=== PATIENT | female | born 1965 | race Caucasian/White ===

== ENCOUNTER 2017-07-17 03:37 | Emergency (ER) | payer BC, OTHER ==
--- NOTE | 2017-07-17 08:10 | RAD ---
PA AND LATERAL CHEST: Date: 07/17/17 HISTORY: Cough, generalized weakness, fever. Symptoms have been present for 1 week. COMPARISON: 12/17/13. FINDINGS: The cardiac silhouette and pulmonary vasculature are within normal limits. There is minimal symmetric biapical pleural thickening noted. Lungs are otherwise clear. Surgical clips overlie the right upper quadrant. There has been no interval change from prior study. IMPRESSION: No acute cardiopulmonary process. POS: [facility]
== END 2017-07-17 05:01 | disposition home or self-care (01) ==
LOC: ERS 03:37
DX: J40 Bronchitis, not specified as acute or chronic (principal); J44.9 Chronic obstructive pulmonary disease, unspecified; F41.9 Anxiety disorder, unspecified; F32.9 Major depressive disorder, single episode, unspecified; Z87.891 Personal history of nicotine dependence; Z79.52 Long term (current) use of systemic steroids; Z79.899 Other long term (current) drug therapy
CPT/HCPCS: 71046; 94640; J7620

== ENCOUNTER 2018-05-30 05:28 | Observation (INO) | payer OTHER ==
[2018-05-30 05:49] LABS: #Basophils 0.1 thou/uL (0.0-0.2); #Eosinphils 0.1 thou/uL (0.0-0.7); #Lymphocytes 3.2 thou/uL (1.20-3.40); %Basophils 0.9 % (0.0-1.0); %Eosinophils 0.6 % (0.0-10.0); %Lymphocytes 25.9 % (21.0-51.0); %Neutrophils 64.6 % (42.0-75.0); Hemoglobin 12.5 g/dL (12.0-16.0); Mean Corpuscular HGB CONC 34.5 g/dL (32.0-36.0); Mean Corpuscular Hemoglobin 30.3 pg (27.0-31.0); Platelet Count 340 thou/uL (130-400); Red Blood Cell (RBC) Count 4.11 mill/uL (4.20-5.40); White Blood Cell (WBC) Count 12.3 thou/uL (4.8-10.8)
[2018-05-30 06:16] LABS: ALT (SGPT) 12 U/L (8-55); AST (SGOT) 15 U/L (5-34); Albumin 4.3 g/dL (3.5-5.0); Alkaline Phosphatase 91 U/L (40-150); Anion Gap 14 mmol/L (10-20); BUN (Urea Nitrogen) 9 mg/dL (9.8-20.1); Bilirubin, Total 0.8 mg/dL (0.2-1.2); Calc. Creatinine Clearance 0 mL/min (70-130); Calcium 9.7 mg/dL (7.8-10.44); Carbon Dioxide 24 mmol/L (22-29); Chloride 104 mmol/L (98-107); Estimated GFR-MDRD 69; Globulin 3.5 g/dL (2.4-3.5); Glucose 110 mg/dL (70-105); Potassium 3.3 mmol/L (3.5-5.1); Protein, Total 7.8 g/dL (6.0-8.3); Sodium 139 mmol/L (136-145)
[2018-05-30] MEDS ORDERED: Nitroglycerin 0.4 MG TAB (25 Tab Bottle) ONE (06:34)
[2018-05-30] MEDS ORDERED: methylPREDNISolone Sod Succ/PF 125 MG/2 ML VIAL ONE (07:45)
--- NOTE | 2018-05-30 08:02 | RAD ---
RIGHT HAND 3 VIEWS: Date: 05/30/18 HISTORY: Right hand pain. FINDINGS/IMPRESSION: There is a ring which obscures a portion of the bone in the proximal phalanx of the ring finger. No a cute fracture, dislocation, or bony destruction is otherwise seen. Degenerative changes are present. POS: [facility]
--- NOTE | 2018-05-30 08:05 | RAD ---
LEFT HAND 3 VIEWS: Date: 05/30/18 HISTORY: Left hand pain. FINDINGS/IMPRESSION: Degenerative changes are present. There is a questionable fracture involving the neck of the second m etacarpal. Clinical correlation is recommended. POS: [facility]
--- NOTE | 2018-05-30 08:06 | RAD ---
PORTABLE CHEST 1 VIEW: Date: 05/30/18 Time: 0533 hours HISTORY: Chest pain. FINDINGS: Comparison made with exam of 07/26/16. The heart size is normal. The lungs are expanded without focal areas of consolidation, pneumothorax, or pleural effusions. IMPRESSION: No acute process. POS: [facility]
[2018-05-30] MEDS ORDERED: Dicyclomine 20 MG TAB ONE (08:27)
--- NOTE | 2018-05-30 08:41 | CT ---
CT PULMONARY ANGIOGRAM WITH IV CONTRAST AND 3D POSTPROCESSING: Date: 05/30/18 HISTORY: Chest pain, elevated D-Dimer. FINDINGS: There is good contrast opacification of the pulmonary arterial vasculature without filling defects to suggest pulmonary embolism. The thoracic aorta is well opacified without aneurysm or dissection. No pleural or pericardial effusions are seen. No pneumothoraces are identified. There is bronchiectasis in the lingula, which was also seen on exam of 05/07/17 with associated atelectatic change. A 4.0 mm nodule is seen in the lingula. This nodule was not definitely noted on the previous study of 07/26/16 . IMPRESSION: 1. No CT evidence of pulmonary embolism. 2. 4.0 mm nodule in the lingula. A follow-up CT scan of chest is recommended in 6 months. CODE T CODE L POS: [facility]
[2018-05-30] MEDS ORDERED: HYDROcodone/Acetaminophen 5/325 mg Tablet ONE (08:44)
[2018-05-30 09:36] LABS: Cardiac Risk 4.5 (Less than 4.5)
[2018-05-30] MEDS ORDERED: Sodium Chloride 0.65% Nasal 44 ML BOT EA NARE PRN (10:47)
[2018-05-30] MEDS ORDERED: hydrALAZINE 20 MG/ML VIAL SLOW IVP PRN (10:47)
[2018-05-30] MEDS ORDERED: cloNIDine 0.1 MG TAB PO PRN (10:47)
[2018-05-30] MEDS ORDERED: Diabetic Tussin 200 MG/10 ML UDCUP PO PRN (10:47)
[2018-05-30] MEDS ORDERED: Ondansetron PF 4 MG/2 ML Vial IVP PRN (10:47)
[2018-05-30] MEDS ORDERED: Senokot S 8.6-50 MG TAB PO PRN (10:47)
[2018-05-30] MEDS ORDERED: Nitroglycerin 0.4 MG TAB (25 Tab Bottle) SL PRN (10:47)
[2018-05-30] MEDS ORDERED: Benzonatate 100 MG CAP PO PRN (10:47)
[2018-05-30] MEDS ORDERED: Acetaminophen 500 MG TAB PO PRN (10:47)
[2018-05-30] MEDS ORDERED: Bisacodyl 5 MG TAB PO PRN (10:47)
[2018-05-30] MEDS ORDERED: Regadenoson 0.4 MG/5 ML SYRINGE ONE (11:50)
[2018-05-30 13:37] VITALS: BMI 23.2
[2018-05-30 14:32] LABS: Troponin I Less than 0.010 ng/mL (< 0.028)
--- NOTE | 2018-05-30 14:50 | HP ---
PRIMARY CARE PHYSICIAN: Susu Conte, [facility] at [facility]. CHIEF COMPLAINT: Cough, shortness of breath, wheezing, and chest pain. HISTORY OF PRESENTING ILLNESS: Ms. Camarillo is a 52-year-old female with known history of COPD and dyslipidemia as well as anxiety and panic attacks, who presented to the ER with the above-mentioned complaint. History is mainly obtained by the patient herself, and the electronic medical records have been reviewed. Case has been discussed with admitting ER physician, Dr. Barrera. Ms. Camarillo reports that she has been ill for almost a week. She has 13 grandkids, one or the other is sick in the last few months. She has been having some runny nose, subjective fever, chills, yellow productive cough, and shortness of breath. She also tripped on one of the grandkids and fell and hurt her finger on the right hand and her left arm. She presented to the ER today when she had pain in the chest with excessive coughing. In the emergency room, she was hemodynamically stable. Her chest x-ray did not show any acute process or fractures. Her x-ray of the hand did not show any finger fractures of the right hand and left hand showed questionable fracture of the neck of second metacarpal. Her EKG and cardiac enzymes are unremarkable. She did have elevated D-dimer, for which she underwent a CT angio of the thorax. This is negative for any evidence of pneumonia or pulmonary embolism. She received aspirin as well as Solu-Medrol nebulizers and sublingual nitroglycerin in the ER, which improved her chest pain. Because of improvement with the nitroglycerin, she is now being admitted to the hospital for ACS workup. Because of some wheezing. She is also being diagnosed as having acute COPD exacerbation. PAST MEDICAL HISTORY: 1. COPD from years of tobacco abuse. She is currently not smoking. 2. Dyslipidemia. 3. History of anxiety and panic attacks. 4. Osteoporosis. ALLERGIES: NO KNOWN MEDICATION ALLERGIES. PAST SURGICAL HISTORY: Hernia repair, hysterectomy, cholecystectomy. SOCIAL HISTORY: She was a one-pack per day smoker, but reported that she has quit few months ago. She lives with the family and as stated above has 13 grandkids in the house. No history of drug or alcohol abuse. FAMILY HISTORY: Significant for mom with diabetes, dyslipidemia, and chronic back pain. Her mom also had a heart attack in her 60s. HOME MEDICATIONS: Not reconsult as yet. She does remember taking a cholesterol medication and medications for her anxiety. REVIEW OF SYSTEMS: A 12-point review of system is done and it is negative except for those mentioned in the history and physical. LABORATORY DATA: Her CBC shows WBCs at 12.3 without any left shift. D-dimer 0.57. Serum chemistry showed potassium of 3.3. Troponin less than 0.010 x2. Lactic acid normal. Chest x-ray by my review has no evidence to suggest any pleural effusion, edema, or infiltrate. CT angio is negative for PE. PHYSICAL EXAMINATION: VITAL SIGNS: Upon presentation to the ER, blood pressure 135/80, heart rate 105, respirations 24, temperature 98.7, and saturating 96% on room air. GENERAL: No acute distress. Awake, alert, and oriented x3. She does appear somewhat ill and pale. HEENT: Mucous membranes are moist and pink. No oropharyngeal exudate or erythema. Head is normocephalic and atraumatic. Pupils are equal and reactive to the light and accommodation. Extraocular movement intact. NECK: Supple without any lymphadenopathy, JVD, or bruit. CHEST: Chest auscultation reveals some diffuse wheezes bilaterally, mainly expiratory in the end-expiration. No rales. No rhonchi. Rate and rhythm are regular without any murmurs, rubs, or gallops. ABDOMEN: Soft, nontender, nondistended. Positive bowel sounds. EXTREMITIES: Free of any cyanosis, clubbing, or edema. NEUROLOGICAL: Nonfocal. SKIN: Free of any rashes or bruises. Feels warm and dry to touch. IMPRESSION AND PLAN: 1. Chest pain, most likely noncardiac due to excessive cough from bilateral bronchitis; however, given the positive family history and multiple other risk factors including tobacco abuse history: The patient will undergo a stress test for further confirmation. Continue to trend serial cardiac enzymes. Continue aspirin and check lipid panel. Restart her medication for high cholesterol once confirmed. She is otherwise hemodynamically stable. Pulmonary embolism has been ruled out. Pneumonia has been ruled out. 2. Acute chronic obstructive pulmonary disease exacerbation. The patient has mild wheezing on examination, suggestive of mild chronic obstructive pulmonary disease exacerbation. We will start her on IV steroid with quick taper and start her on nebulizer, Mucinex, incentive spirometry, and continue supportive care with oxygen p.r.n. 3. Viral bronchitis. No evidence to suggest pneumonia at this time. No indication of antibiotics. Check respiratory viral pathogen by NAAT technique. 4. Fall and possible fracture. The patient has had a cast put in on her left hand in the emergency room. We will provide pain control without any narcotics. 5. Dyslipidemia. Check lipid panel. Restart home medications and adjust if necessary. 6. Anxiety and depression. Restart home medications once confirmed. 7. Code status, full code. Discussed with the patient. DISPOSITION: Ms. Camarillo is currently being admitted to observation status for chest pain and ACS workup. Estimated length of stay at this time is less than two midnights. Further management will depend upon her clinical course. Job ID: [id number]
[2018-05-30] MEDS ORDERED: ISOVUE-370 76%-LOCM 1 ML ONE (16:00)
--- NOTE | 2018-05-30 16:12 | NM ---
CARDIAC SPECT: HISTORY: A 52-year-old female with chest pain, COPD, diabetes, and dyslipidemia. TECHNIQUE: A myocardial perfusion scan was performed using the single isotope one day protocol with technetium 9 9m sestamibi, and 11 millicuries was injected intravenously for the rest exam, followed by 32 millicu anna for the stress study. Pharmacologic stress with Lexiscan was monitored and interpreted by Dr. You cifuentes. FINDINGS: Homogeneous tracer distribution is seen in the myocardial segments on stress and rest images without fixed or reversible defects. GATED SPECT LVEF: 74% WALL MOTION EXAM: Normal. IMPRESSION: Normal myocardial perfusion scan. POS: [facility]
[2018-05-30] MEDS: guaiFENesin ER 600 MG TAB PO SCH (21:34)
[2018-05-31] MEDS ORDERED: Aspirin 325 MG TAB PO SCH (08:00)
[2018-05-31] MEDS: guaiFENesin ER 600 MG TAB PO SCH (08:11)
[2018-05-31 11:49] VITALS: BP 115/70; TEMP 98.5
--- NOTE | 2018-06-02 15:35 | EKG ---
Test Reason : Blood Pressure : / mmHG Vent. Rate : 107 BPM Atrial Rate : 107 BPM P-R Int : 172 ms QRS Dur : 074 ms QT Int : 336 ms P-R-T Axes : 061 011 062 degrees QTc Int : 448 ms Sinus tachycardia Septal infarct , age undetermined Abnormal ECG Confirmed by PARK KANG ([id number]), editor news RUDY HERNANDES ([id number]) on 06/02/2018 3:34:57 PM Referred By: Confirmed By:PARK KANG
== END 2018-05-31 13:18 | disposition home or self-care (01) ==
LOC: EEVIPCON 05:28 → ERS 05:28 → 2SW 09:33
PROVIDERS: ADMIT Internal Medicine; ATTEND Internal Medicine
DX: R07.9 Chest pain, unspecified (principal); J44.1 Chronic obstructive pulmonary disease with (acute) exacerbation; J20.8 Acute bronchitis due to other specified organisms; E78.5 Hyperlipidemia, unspecified; F41.9 Anxiety disorder, unspecified; F32.9 Major depressive disorder, single episode, unspecified; M81.0 Age-related osteoporosis without current pathological fracture; M79.642 Pain in left hand; Z87.891 Personal history of nicotine dependence; Z79.899 Other long term (current) drug therapy
CPT/HCPCS: 26600; 36415; 71045; 71275; 78452; 80053; 80061; 83605; 84484; 85025; 85379; 87040; 87633; 87798; 93005; 93017; 94640; 96374; 96376; A9500; G0378; J2785; J2920; J2930; J7620

== ENCOUNTER 2018-11-26 17:20 | Inpatient (IN) | payer OTHER ==
[2018-11-26] MEDS ORDERED: Fentanyl 100 MCG/2 ML VIAL ONE ×2 (17:51→19:14)
--- NOTE | 2018-11-26 18:18 | RAD ---
XR Hip Rt 2-3 View History: Fall Comparison: None. Findings: Right mid cervical femoral neck fracture with mild varus angulation and impaction. Obturato r ring is intact. Impression: Right mid cervical femoral neck fracture.
--- NOTE | 2018-11-26 18:42 | RAD ---
XR Pelvis AP STANDARD History: Fall Comparison: None. Findings: Right mid cervical femoral neck fracture with foreshortening and varus angulation. Impression: Right mid cervical femoral neck fracture. Age-indeterminate left superior and inferior pu bic rami fractures.
--- NOTE | 2018-11-26 18:43 | RAD ---
XR Chest 1 View History: Trauma Comparison: Radiograph May 30, 2018 Findings: Lungs are clear. No pneumothorax. No effusion. No acute osseous abnormality. Right upper quadrant surgical clips. Impression: No acute intrathoracic abnormality.
[2018-11-26 18:56] LABS: Bilirubin Negative (Negative); Blood, Urine Small (Negative); Clarity CLOUDY (Clear); Glucose, Urine (Dipstick) Negative (Negative); Leukocyte Negative (Negative); Nitrite Negative (Negative); Protein, Urine (Dipstick) Negative (Neg-Trace); Specific Gravity, Urine 1.016 (1.002-1.036); Urobilinogen 0.2 mg/dL (0.2-1.0); pH, Urine 5.5 (5.0-9.0)
[2018-11-26 18:58] LABS: Bacteria/HPF None Seen HPF (None Seen); Hyaline Casts/LPF 0-3 HYALINE CAST LPF (0-3 Hyaline); Pathc Cast-AUWi Flag 0.13 (0-2.49); RBC/HPF 0-3 HPF (0-3); Squamous Epithelial 0-3 HPF (0-3); WBC/HPF None Seen HPF (0-3)
[2018-11-26] MEDS ORDERED: Ketorolac Tromethamine 30 MG/ML VIAL ONE (19:14)
[2018-11-26 19:17] LABS: #Basophils 0.1 thou/uL (0.0-0.2); #Eosinphils 0.1 thou/uL (0.0-0.7); #Lymphocytes 1.8 thou/uL (1.20-3.40); #Monocytes 0.5 thou/uL (0.11-0.59); #Neutrophils 7.6 thou/uL (1.40-6.50); %Basophils 0.6 % (0.0-1.0); %Eosinophils 1.4 % (0.0-10.0); %Lymphocytes 18.2 % (21.0-51.0); %Monocytes 4.8 % (0.0-10.0); %Neutrophils 75.1 % (42.0-75.0); Mean Corpuscular HGB CONC 34.2 g/dL (32.0-36.0); Mean Corpuscular Hemoglobin 30.3 pg (27.0-31.0); Mean Corpuscular Volume 88.5 fL (78.0-98.0); Platelet Count 296 thou/uL (130-400); RBC Distribution Width 12.2 % (11.5-14.5); Red Blood Cell (RBC) Count 3.95 mill/uL (4.20-5.40); White Blood Cell (WBC) Count 10.1 thou/uL (4.8-10.8)
[2018-11-26 19:23] LABS: PTT 27.6 SEC (22.9-36.1)
[2018-11-26 19:36] LABS: ALT (SGPT) 12 U/L (8-55); AST (SGOT) 14 U/L (5-34); Alkaline Phosphatase 80 U/L (40-150); Anion Gap 12 mmol/L (10-20); BUN (Urea Nitrogen) 10 mg/dL (9.8-20.1); Bilirubin, Total 0.2 mg/dL (0.2-1.2); Calc. Creatinine Clearance 0 mL/min (70-130); Calcium 8.4 mg/dL (7.8-10.44); Carbon Dioxide 22 mmol/L (22-29); Chloride 107 mmol/L (98-107); Estimated GFR-MDRD 76; Globulin 2.6 g/dL (2.4-3.5); Glucose 109 mg/dL (70-105); Potassium 3.4 mmol/L (3.5-5.1); Protein, Total 6.6 g/dL (6.0-8.3); Sodium 138 mmol/L (136-145)
[2018-11-26] MEDS ORDERED: hydrALAZINE 20 MG/ML VIAL SLOW IVP PRN (20:17)
[2018-11-26] MEDS ORDERED: Ondansetron PF 4 MG/2 ML Vial IVP PRN (20:17)
[2018-11-26] MEDS ORDERED: Dextrose 5% in Water 1,000 ML IV PRN (20:17)
[2018-11-26] MEDS ORDERED: Dextrose 50% Abboject 50 ML SYRINGE SLOW IVP PRN (20:17)
[2018-11-26] MEDS ORDERED: Ondansetron ODT 4 MG TAB PO PRN (20:17)
[2018-11-26] MEDS ORDERED: Potassium Phosphate 30 MMOL in Sodium Chloride 0.9% 500 ML IVPB SCH (20:30)
[2018-11-26 20:44] LABS: Phosphorus 2.9 mg/dL (2.3-4.7)
[2018-11-26 20:48] VITALS: BMI 24.5
[2018-11-26] MEDS: Senokot S 8.6-50 MG TAB PO SCH (20:56)
[2018-11-26] MEDS: Ibuprofen 800 MG TAB PO SCH (20:56)
[2018-11-26] MEDS: Sodium Chloride 0.9% 1,000 ML IV SCH (20:58)
[2018-11-26] MEDS: Acetaminophen 500 MG TAB PO SCH (20:59)
[2018-11-26] MEDS: traMADol HCl 50 MG TAB PO SCH (21:00)
--- NOTE | 2018-11-26 22:52 | CON ---
DATE OF CONSULTATION: 11/26/2018 CHIEF COMPLAINT: Right hip pain. HISTORY OF PRESENT ILLNESS: Ms. Camarillo is a 52-year-old female who is at home today. She slipped and fell. She landed hard on her right side. She was unable to ambulate. She had immediate pain in the hip. She was taken to the emergency department by EMS. X-rays have demonstrated a femoral neck fracture with displacement. She is being admitted by the General Surgery Trauma Service, I have been consulted regarding her injury. She denied loss of consciousness. She denied hitting her head. She is very active at baseline. She cares for 5 grandchildren as well as her elderly mother. PAST MEDICAL HISTORY: COPD with recurrent bronchitis. Hypercholesterolemia. She also has anxiety and history of panic attacks. PAST SURGICAL HISTORY: Cholecystectomy, hysterectomy, and oophorectomy. PSYCHIATRIC HISTORY: Anxiety and depression. SOCIAL HISTORY: The patient is a former tobacco user for 30 years. She denies alcohol or current tobacco use. FAMILY MEDICAL HISTORY: Noncontributory. ALLERGIES: TO MORPHINE. IMAGING STUDIES: X-rays of the right femur and pelvis demonstrate a displaced acute right femoral neck fracture. PHYSICAL EXAMINATION: VITAL SIGNS: Blood pressure is 129/71, pulse is 88, respiratory rate 18, temperature is 97.9, oxygen saturation 97%. GENERAL: She is lying supine, alert and oriented, no apparent distress. HEENT: Normocephalic, atraumatic. RESPIRATORY: Breathing comfortably. ABDOMEN: Soft, nontender, and nondistended. MUSCULOSKELETAL: The patient's right lower extremity is shortened. She has some external rotation. She is able to flex and extend the foot and ankle. She has a palpable pulse. Sensation is intact distally in the foot. Warm and well perfused. EXTREMITIES: Upper extremities are atraumatic. IMPRESSION: Acute right femoral neck fracture in a 52-year-old female, with a history of chronic obstructive pulmonary disease. PLAN: At this point, I discussed the patient's treatment options. I think she would benefit the most from a total hip arthroplasty. I have reviewed alternative such as open reduction and fixation. However, I think given her displacement, she has a high likelihood of going on the avascular necrosis or nonunion. Hemiarthroplasty would help her in the short term, but I think given her young age and high activity level, she would develop wear of her acetabulum and have problems with this in 5 to 10 years. Total hip arthroplasty will give her in the best return to function and longevity. We will plan for this tomorrow. She should be n.p.o. at midnight. She will have antibiotic prophylaxis and DVT prophylaxis. She will have pain control as well. She will have careful management of her pulmonary status given her history of COPD. Job ID: [id number]
--- NOTE | 2018-11-27 02:57 | HP ---
ATTENDING SURGEON: Dr. Valente. CONSULTS: Orthopedic Surgery, Dr. Corrales. HISTORY OF PRESENT ILLNESS: This is a 52-year-old female who was at her home, walking on the wood floor and slipped, falling onto her right hip. The patient denies any chest pain, shortness of breath or dizziness prior to falling. The patient denies hitting her head. The patient denies any other injuries and states she landed only on her right hip. PAST MEDICAL HISTORY: COPD, depression, anxiety, panic disorder, osteoporosis. FAMILY HISTORY: Mom with Alzheimer's. PAST SURGICAL HISTORY: Hysterectomy, cholecystectomy, hernia repair. SOCIAL HISTORY: Lives at home with her spouse, denies alcohol use, denies illicit drug use, the patient was a 30+ year smoker who quit smoking 2 years ago. HOME MEDICATIONS: 1. Antidepressant medication. Patient unsure of medication as she was newly switched. 2. Estrogen. 3. Hyperlipidemia medication unknown. 4. Medrol Dosepak. The patient started for flare-up of her COPD. REVIEW OF SYSTEMS: A 10-point review of systems is negative unless otherwise stated in the above HPI. PHYSICAL EXAMINATION: VITAL SIGNS: Blood pressure 129/71, temperature 97.9, pulse 88, respirations 18, SpO2 of 97% on room air. GENERAL: Age-appropriate appearing female, no acute distress. HEENT: Head is atraumatic, normocephalic. Pupils are equal, round, and reactive at 3 mm. NECK: Supple, full range of motion. CHEST: Bilateral breath sounds, clear. No wheezing, rales, or rhonchi. CARDIOVASCULAR: Regular rate, regular rhythm. No murmurs, no pedal edema. ABDOMEN: Soft, nontender, nondistended, active bowel sounds. EXTREMITIES: Moves all extremities, pulses 2+ in all extremities, tenderness and pain to palpation of right hip. NEUROLOGIC: No focal deficits. LABORATORY DATA: WBC 10.1, RBC 3.95, hemoglobin 12.0, hematocrit 35.0. PT 13.0, INR 1.0, APTT 27.6. Sodium 138, potassium 3.4, chloride 107, BUN 10, creatinine 0.79, estimated GFR 76, glucose 109, calcium 8.4, phosphorus 2.9, magnesium 2.0. AST 14, ALT 12, and alkaline phosphatase 80. Urinalysis, unremarkable. DIAGNOSTIC DATA: 1. Chest x-ray, no acute intrathoracic abnormality. 2. Pelvis x-ray, right mid cervical femoral neck fracture and again age indeterminate left superior and inferior pubic rami fractures. IMPRESSION: 1. Status post ground level fall. 2. Right femoral neck fracture. 3. Left superior and inferior pubic rami fractures, age indeterminate. 4. History of chronic obstructive pulmonary disease and osteoporosis. 5. Hypokalemia. PLAN: We will admit patient to the surgical ortho floor. We will place the patient n.p.o. after midnight as Dr. Corrales plans to take the patient to the OR tomorrow. We will place the patient on a pain regimen. We will place a PT/OT consult postop to evaluate and treat patient. We will replace electrolytes. The plan was discussed with the attending physician, who agrees. Job ID: [id number]
[2018-11-27] MEDS: traMADol HCl 50 MG TAB PO SCH ×4 (03:04→20:27)
[2018-11-27] MEDS: Acetaminophen 500 MG TAB PO SCH ×4 (03:04→20:27)
[2018-11-27] MEDS: Ibuprofen 800 MG TAB PO SCH ×3 (05:22→20:27)
[2018-11-27] MEDS: Sodium Chloride 0.9% 1,000 ML IV SCH ×3 (05:22→20:32)
[2018-11-27 06:46] LABS: Anion Gap 10 mmol/L (10-20); BUN (Urea Nitrogen) 9 mg/dL (9.8-20.1); Calc. Creatinine Clearance 95 mL/min (70-130); Calcium 8.9 mg/dL (7.8-10.44); Carbon Dioxide 25 mmol/L (22-29); Chloride 108 mmol/L (98-107); Estimated GFR-MDRD 89; Glucose 92 mg/dL (70-105); Magnesium 1.9 mg/dL (1.6-2.6); Phosphorus 4.5 mg/dL (2.3-4.7); Potassium 3.8 mmol/L (3.5-5.1); Sodium 139 mmol/L (136-145)
[2018-11-27] MEDS ORDERED: CEFAZOLIN 2 GM in Premix Bag 1 BAG IVPB SCH (07:00)
[2018-11-27 08:05] LABS: #Basophils 0.1 thou/uL (0.0-0.2); #Eosinphils 0.3 thou/uL (0.0-0.7); #Lymphocytes 2.4 thou/uL (1.20-3.40); #Monocytes 0.5 thou/uL (0.11-0.59); #Neutrophils 5.4 thou/uL (1.40-6.50); %Basophils 0.6 % (0.0-1.0); %Eosinophils 3.2 % (0.0-10.0); %Lymphocytes 27.7 % (21.0-51.0); %Monocytes 6.2 % (0.0-10.0); %Neutrophils 62.3 % (42.0-75.0); Hemoglobin 11.2 g/dL (12.0-16.0); Mean Corpuscular HGB CONC 33.2 g/dL (32.0-36.0); Mean Corpuscular Hemoglobin 29.3 pg (27.0-31.0); Mean Corpuscular Volume 88.3 fL (78.0-98.0); Mean Platelet Volume 6.9 fL (7.4-10.4); Platelet Count 263 thou/uL (130-400); RBC Distribution Width 12.3 % (11.5-14.5); Red Blood Cell (RBC) Count 3.81 mill/uL (4.20-5.40); White Blood Cell (WBC) Count 8.7 thou/uL (4.8-10.8)
[2018-11-27] MEDS: Azithromycin 250 MG TAB PO SCH (08:23)
[2018-11-27] MEDS: Polyethylene Glycol 3350 17 GM Packet PO SCH (08:25)
[2018-11-27] MEDS: Senokot S 8.6-50 MG TAB PO SCH ×2 (08:25→20:28)
[2018-11-27] MEDS: Estradiol 1 MG TAB PO SCH (08:26)
[2018-11-27] MEDS: Nicotine 14 MG PATCH TD SCH (08:27)
[2018-11-27] MEDS: FLUoxetine HCl 20 MG CAP PO SCH (08:27)
[2018-11-27] MEDS ORDERED: Azithromycin 250 MG TAB PO SCH (09:00)
[2018-11-27] MEDS ORDERED: Non-Formulary Item 1 EACH (Estradiol [Estradiol] 2 MG) PO SCH (09:00)
[2018-11-27] MEDS ORDERED: Non-Formulary Item 1 EACH (Fluoxetine Hcl [Fluoxetine Hcl] 40 MG) PO SCH (09:00)
[2018-11-27] MEDS ORDERED: Bupivacaine HCl 0.5%/Epinephrine 1:200,000/PF 30 ml Vial ONE (10:26)
[2018-11-27] MEDS ORDERED: Lidocaine 1% PF 5 ML VIAL ONE (10:38)
[2018-11-27] MEDS ORDERED: PHENYLEPHRINE-NS 100 MCG/ML 10 ML SYRINGE ONE (10:38)
[2018-11-27] MEDS ORDERED: Glycopyrrolate 0.2 MG/ML 5 ML SYRINGE ONE (10:38)
[2018-11-27] MEDS ORDERED: Rocuronium Bromide 10 MG/ML (10ML VIAL) ONE (10:38)
[2018-11-27] MEDS ORDERED: PROPOFOL 200 MG/20 ML VIAL ONE (10:38)
[2018-11-27] MEDS ORDERED: Midazolam HCl 2 mg/2 ml Vial ONE (10:49)
[2018-11-27] MEDS ORDERED: Fentanyl 100 MCG/2 ML VIAL ONE ×4 (10:50→15:06)
[2018-11-27] MEDS ORDERED: Fentanyl 250 MCG/5 ML VIAL ONE (11:18)
[2018-11-27] MEDS ORDERED: Neomycin-Polymyxin 1 ML AMP ONE (11:22)
[2018-11-27] MEDS ORDERED: Tranexamic Acid 1,000 MG/10 ML VIAL ONE (12:13)
[2018-11-27] MEDS ORDERED: Ondansetron HCl/PF 4 MG/2 ML Vial IVP PRN (12:54)
[2018-11-27] MEDS ORDERED: Promethazine HCl 25 MG/ML VIAL IM PRN (12:54)
[2018-11-27] MEDS ORDERED: Promethazine HCl 25 MG/ML VIAL SLOW IVP PRN (12:54)
[2018-11-27] MEDS ORDERED: Sodium Chloride For Inhalation 0.9% 3 ML NEB ONE (14:09)
[2018-11-27] MEDS ORDERED: Albuterol Sulfate 1.25 MG/3 ML NEB ONE (14:09)
--- NOTE | 2018-11-27 14:53 | RAD ---
ONE VIEW RIGHT HIP: HISTORY: Status post arthroplasty. FINDINGS: Single cross-table lateral view of the right hip demonstrates arthroplasty change. Based on the sing le image provided, no obvious malalignment. IMPRESSION: Postoperative changes compatible with a right hip arthroplasty. POS: [facility]
--- NOTE | 2018-11-27 14:58 | RAD ---
AP PELVIS: Date: 11/27/18 HISTORY: Status post hip arthroplasty. FINDINGS/IMPRESSION: Comparison made with exam of 11/26/18. Interval postop changes of total right hip arthroplasty are seen in good position and alignment. POS: [facility]
--- NOTE | 2018-11-27 15:05 | OP ---
DATE OF PROCEDURE: 11/27/2018 PROCEDURE PERFORMED: Right total hip arthroplasty. PREOPERATIVE DIAGNOSIS: Right femoral neck fracture, displaced. POSTOPERATIVE DIAGNOSIS: Right femoral neck fracture, displaced. COMPLICATIONS: None. ESTIMATED BLOOD LOSS: 100 mL. PROJECT OFFICER: Barry Feldman PA-C IMPLANTS: DJO Surgical size 50 mm acetabular shell, 3-hole cluster, size 10 porous-coated standard offset femoral stem, and size 36 mm femoral head neutral. INDICATIONS: Ms. Camarillo is a 52-year-old female, who fell and fractured the right femoral neck. She had a displaced fracture. She was indicated for total hip arthroplasty to restore the ability to ambulate and promote early mobilization. Risks have been reviewed, which include dislocation, instability, infection, pain, scarring, nerve or vascular injury, and others. DESCRIPTION OF OPERATION: Ms. Camarillo was identified in the preoperative holding area. Her correct extremity was marked. She was carried to the operating room. She was positioned supine. General anesthesia was induced. A multidisciplinary time-out was performed. The right lower extremity was prepped and draped in sterile fashion. We began the procedure with a posterior approach to the hip. We dissected down through the subcutaneous tissues to the fascia. The fascia was incised. We then exposed the short external rotators of the hip. We excised bursa as well. We performed an incision of the piriformis tendon. We then performed a capsulotomy. At this point, we evacuated hematoma. We removed the broken femoral head and neck fragments. We then performed a new osteotomy with an oscillating saw. At this point, we exposed the acetabulum with retractors. We then began reaming after clearing the labrum and soft tissues. We reamed from a 44 up to a size 49 mm reamer. We then impacted a 50 mm cup. Two screws were placed in the cup. At this point, we then impacted our acetabular liner. We took care that eversion was appropriate. Next, we exposed the proximal femur. We entered the intramedullary canal of the femur. We lateralized. At this point, we then broached from a size 5 up to a size 10 broach, 10 gave a good fit and fill. We trialed off the size 10 broach. We then tested length and stability. This was appropriate with a neutral head. At this point, we dislocated the hip once more. We then took out our trial components. We then placed our final components. The final components were seated appropriately. We thoroughly irrigated with copious lavage. We then closed the deep tissues with #5 Ethibond suture through drill holes. Remaining capsular tissues were closed as well as fascia with #2 Vicryl suture, followed by 2-0 Vicryl suture, and amee for the skin. A sterile dressing was applied. The patient was taken to the recovery room in good condition. Job ID: [id number]
--- NOTE | 2018-11-27 18:30 | PRG ---
DATE OF SERVICE: 11/27/2018 SUBJECTIVE: This is a 52-year-old female, status post fall at her home, sustaining a right femoral neck fracture. The patient has just gotten back from the OR. The patient is awake and alert, in no acute distress. The patient reports some mild nausea at this time. The patient reports pain is well controlled. The patient had no overnight events. OBJECTIVE: VITAL SIGNS: Pulse 81, respirations 16, SpO2 of 96% on 2.5 L nasal cannula, and blood pressure 119/68. GENERAL: Appropriate for age appearing, no acute distress. RESPIRATIONS: No wheezing, rales, or rhonchi. Bilateral breath sounds clear. No respiratory distress. CARDIOVASCULAR: Regular rate, regular rhythm. ABDOMEN: Soft, nontender, nondistended. EXTREMITIES: Moves all extremities. Pulses 2+ in all extremities. NEUROLOGIC: No focal deficit. LABORATORY DATA: WBC 8.7, RBC 3.81, hemoglobin 11.2, and hematocrit 33.7. Sodium 139, potassium 3.8, chloride 108, BUN 9, creatinine 0.69, estimated GFR 89, glucose 92, calcium 8.9, phosphorus 4.5, and magnesium 1.9. IMPRESSION: 1. Status post ground level fall. 2. Right femoral neck fracture. Postop day #0 of right total hip arthroplasty. 3. Chronic obstructive pulmonary disease. 4. Present history of osteoporosis. PLAN: Continue supportive care. We will stop IV fluids once the patient is able to tolerate p.o. fluids. We will start PT and OT. Rehab screen is placed just in case the patient does need additional physical and occupational therapy. The plan has been discussed with the attending physician who agrees. Job ID: [id number]
[2018-11-27] MEDS: CEFAZOLIN 2 GM in Premix Bag 1 BAG IVPB SCH (18:33)
[2018-11-27] MEDS: Atorvastatin Calcium 20 MG TAB PO SCH (20:28)
[2018-11-27] MEDS ORDERED: Non-Formulary Item 1 EACH (Pravastatin Sodium [Pravastatin Sodium] 80 MG) PO SCH (21:00)
[2018-11-28] MEDS: traMADol HCl 50 MG TAB PO SCH ×4 (02:37→20:59)
[2018-11-28] MEDS: Acetaminophen 500 MG TAB PO SCH ×4 (02:38→20:59)
[2018-11-28] MEDS: CEFAZOLIN 2 GM in Premix Bag 1 BAG IVPB SCH (02:39)
[2018-11-28] MEDS: Ibuprofen 800 MG TAB PO SCH ×3 (05:50→21:00)
[2018-11-28] MEDS: Sodium Chloride 0.9% 1,000 ML IV SCH (05:57)
[2018-11-28 07:02] LABS: Anion Gap 8 mmol/L (10-20); BUN (Urea Nitrogen) 5 mg/dL (9.8-20.1); Calc. Creatinine Clearance 90 mL/min (70-130); Calcium 7.7 mg/dL (7.8-10.44); Carbon Dioxide 25 mmol/L (22-29); Chloride 106 mmol/L (98-107); Estimated GFR-MDRD 84; Glucose 98 mg/dL (70-105); Magnesium 1.5 mg/dL (1.6-2.6); Phosphorus 3.4 mg/dL (2.3-4.7); Potassium 3.4 mmol/L (3.5-5.1); Sodium 136 mmol/L (136-145)
[2018-11-28 07:25] LABS: #Eosinphils 0.3 thou/uL (0.0-0.7); #Monocytes 0.8 thou/uL (0.11-0.59); #Neutrophils 4.7 thou/uL (1.40-6.50); %Basophils 0.2 % (0.0-1.0); %Eosinophils 3.3 % (0.0-10.0); %Lymphocytes 26.2 % (21.0-51.0); %Neutrophils 60.3 % (42.0-75.0); Hemoglobin 8.2 g/dL (12.0-16.0); Mean Corpuscular HGB CONC 32.3 g/dL (32.0-36.0); Mean Corpuscular Volume 89.8 fL (78.0-98.0); Mean Platelet Volume 7.2 fL (7.4-10.4); Platelet Count 207 thou/uL (130-400); RBC Distribution Width 12.1 % (11.5-14.5); Red Blood Cell (RBC) Count 2.82 mill/uL (4.20-5.40); White Blood Cell (WBC) Count 7.7 thou/uL (4.8-10.8)
[2018-11-28] MEDS ORDERED: Magnesium 2 GM/50 ML 4 GM in Premix Bag 1 BAG IVPB SCH (08:00)
[2018-11-28] MEDS ORDERED: Potassium Phosphate 30 MMOL in Sodium Chloride 0.9% 500 ML IVPB SCH (08:00)
[2018-11-28] MEDS: traMADol HCl 50 MG TAB PO PRN (08:14)
[2018-11-28] MEDS: Azithromycin 250 MG TAB PO SCH (08:15)
[2018-11-28] MEDS: Estradiol 1 MG TAB PO SCH (08:15)
[2018-11-28] MEDS: FLUoxetine HCl 20 MG CAP PO SCH (08:15)
[2018-11-28] MEDS: Senokot S 8.6-50 MG TAB PO SCH ×2 (08:16→21:00)
[2018-11-28] MEDS ORDERED: Benzocaine-Menthol 82.5 ML CAN TOP PRN (08:16)
[2018-11-28] MEDS: Nicotine 14 MG PATCH TD SCH (08:17)
[2018-11-28] MEDS: Polyethylene Glycol 3350 17 GM Packet PO SCH (08:17)
[2018-11-28] MEDS ORDERED: Nicotine 14 MG PATCH TD PRN (08:42)
[2018-11-28] MEDS: Ferrous Sulfate 325 MG TAB PO SCH ×2 (08:57→16:38)
[2018-11-28] MEDS: Ascorbic Acid 500 mg Chewable Tablet PO SCH ×2 (08:57→16:38)
[2018-11-28] MEDS ORDERED: Potassium Phosphate 30 MMOL in Sodium Chloride 0.9% 250 ML 250 ML IVPB SCH (09:00)
[2018-11-28] MEDS ORDERED: Cyclobenzaprine 10 MG TAB PO PRN (10:00)
--- NOTE | 2018-11-28 13:52 | PQF ---
DATE: 11-28-18 ATTN: RONALDO JONES, AGACNP- Please exercise your independent, professional judgment in responding to the clarification form. Clinical indicators are provided on the bottom of this form for your review Please check appropriate box(s): Mood Disorder Type (check appropriate): [ ] Major Depressive Disorder [ ] Single past episode [ ] Mild [ ] Moderate [ ] Severe [ ] Major Depressive Disorder [ ] Current episode [ ] Mild [ ] Moderate [ ] Severe [ ] Persistent Mood Disorder [ ] Other diagnosis [x ] Unable to determine In addition, please specify: Present on Admission (POA): [ ] Yes [ x ] No [ ] Unable to determine pt history, no current symptoms present. For continuity of documentation, please document condition throughout progress notes and discharge summary. Thank You. CLINICAL INDICATORS - SIGNS / SYMPTOMS / LABS: H&P: HX COPD, DEPRESSION, ANXIETY, PANIC DISORDER, OSTEOPOROSIS; ANTIDEPRESSANT MEDICATION. PATIENT UNSURE OF MEDICATION SHE WAS NEWLY SWITCHED RISK FACTORS: H&P: HX COPD, DEPRESSION, ANXIETY, PANIC DISORDER, OSTEOPOROSIS TREATMENT: MAR: 11-27-18: [employer] (This form is maintained as a part of the permanent medical record) 2014 [employer]. All Rights Reserved [email or web address] Office: [phone] [place]
[2018-11-28] MEDS: Gabapentin 100 MG CAP PO SCH ×2 (14:30→21:00)
--- NOTE | 2018-11-28 17:24 | PRG ---
DATE OF SERVICE: 11/28/2018 SUBJECTIVE: The patient was seen this morning, sitting up in bed with no signs of acute distress. She reported pain with therapy was 8/10, but otherwise 5/10. Otherwise, she had no other complaints. She is tolerating a regular diet. She is postoperative day #1 status post right total hip arthroplasty. She denies nausea, vomiting, or diarrhea. OBJECTIVE: VITAL SIGNS: Temperature 97.9, pulse 92, respirations 16, oxygen saturation 95% on room air, and blood pressure 107/62. GENERAL: Well-appearing, middle-aged female, sitting up in bed with no signs of acute distress. PULMONARY: Equal chest rise and fall. Clear breath sounds bilaterally. No signs of acute respiratory distress. CARDIAC: Regular rate and rhythm. No murmurs, gallops, or rubs. GI: Abdomen is soft, nontender, nondistended. EXTREMITIES: 2+ pulses in all extremities. No significant swelling noted. Right thigh dressing is clean, dry, and intact with no signs of acute infection. NEUROLOGIC: GCS is 15. Gross motor and sensation are intact. Pupils equal, round, reactive to light bilaterally. LABORATORY FINDINGS: White count 7.7, hemoglobin 8.2, hematocrit 25.4, platelets 207. Sodium 137, potassium 3.4, chloride 106, carbon dioxide 25, BUN 5, creatinine 0.73, phosphorus 3.4, and magnesium 1.5. DIAGNOSTIC FINDINGS: There are no new diagnostic findings to report. ASSESSMENT: 1. Status post mechanical fall from standing. 2. Right femoral neck fracture, status post repair. 3. Left superior and inferior pubic rami fractures, stable. 4. Acute bronchitis, being treated before this admission with p.o. azithromycin. 5. Acute blood loss anemia. 6. History of chronic obstructive pulmonary disease, depression, anxiety, panic disorder, and osteoporosis. PLAN: We will continue to watch the patient's hemoglobin. She is currently hemodynamically stable and not tachycardic. She is also denying any symptoms at this time. We will discontinue IV fluids today as well as the Cuellar catheter. Start the patient on Lovenox for DVT prophylaxis. We will continue to schedule tramadol 50 with p.r.n. 50 for breakthrough pain. We will also add gabapentin 100 mg t.i.d. and titrate up as the patient can tolerate. Also, we will start Flexeril p.r.n. for muscle spasms. Start the patient on vitamin C and iron as well. Replace potassium, magnesium, and phosphorus today. The patient is to work with Physical and Occupational Therapy today and is pending placement at a rehab facility. She is on all home medications that are clinically indicated at this time. The patient was seen and examined by Dr. Blair and myself this morning during rounds. Job ID: [id number]
[2018-11-28] MEDS: Atorvastatin Calcium 20 MG TAB PO SCH (21:00)
[2018-11-28] MEDS: Enoxaparin Sodium 40 MG/0.4 ML SYRINGE SC SCH (21:13)
[2018-11-29] MEDS: traMADol HCl 50 MG TAB PO SCH ×4 (03:13→20:47)
[2018-11-29] MEDS: Acetaminophen 500 MG TAB PO SCH ×4 (03:13→20:48)
[2018-11-29] MEDS: Ibuprofen 800 MG TAB PO SCH ×3 (05:33→20:48)
[2018-11-29 06:25] LABS: #Eosinphils 0.3 thou/uL (0.0-0.7); #Lymphocytes 2.1 thou/uL (1.20-3.40); #Monocytes 0.8 thou/uL (0.11-0.59); #Neutrophils 6.6 thou/uL (1.40-6.50); %Basophils 0.4 % (0.0-1.0); %Eosinophils 2.9 % (0.0-10.0); %Lymphocytes 21.4 % (21.0-51.0); %Monocytes 8.1 % (0.0-10.0); %Neutrophils 67.3 % (42.0-75.0); Hemoglobin 9.3 g/dL (12.0-16.0); Mean Corpuscular HGB CONC 32.8 g/dL (32.0-36.0); Mean Corpuscular Hemoglobin 29.3 pg (27.0-31.0); Mean Corpuscular Volume 89.3 fL (78.0-98.0); Platelet Count 283 thou/uL (130-400); RBC Distribution Width 12.4 % (11.5-14.5); Red Blood Cell (RBC) Count 3.18 mill/uL (4.20-5.40); White Blood Cell (WBC) Count 9.8 thou/uL (4.8-10.8)
[2018-11-29 06:41] LABS: Anion Gap 10 mmol/L (10-20); BUN (Urea Nitrogen) 7 mg/dL (9.8-20.1); Calc. Creatinine Clearance 93 mL/min (70-130); Calcium 8.7 mg/dL (7.8-10.44); Carbon Dioxide 27 mmol/L (22-29); Chloride 104 mmol/L (98-107); Estimated GFR-MDRD 88; Glucose 91 mg/dL (70-105); Magnesium 2.2 mg/dL (1.6-2.6); Phosphorus 3.2 mg/dL (2.3-4.7); Potassium 3.6 mmol/L (3.5-5.1); Sodium 137 mmol/L (136-145)
[2018-11-29] MEDS: Senokot S 8.6-50 MG TAB PO SCH ×3 (08:05→20:50)
[2018-11-29] MEDS: Polyethylene Glycol 3350 17 GM Packet PO SCH (08:05)
[2018-11-29] MEDS: FLUoxetine HCl 20 MG CAP PO SCH (08:06)
[2018-11-29] MEDS: Estradiol 1 MG TAB PO SCH (08:06)
[2018-11-29] MEDS: Gabapentin 100 MG CAP PO SCH ×3 (08:06→20:47)
[2018-11-29] MEDS: Ferrous Sulfate 325 MG TAB PO SCH ×2 (08:06→17:20)
[2018-11-29] MEDS: Azithromycin 250 MG TAB PO SCH (08:07)
[2018-11-29] MEDS: Ascorbic Acid 500 mg Chewable Tablet PO SCH ×2 (08:07→17:20)
[2018-11-29] MEDS: traMADol HCl 50 MG TAB PO PRN (08:07)
--- NOTE | 2018-11-29 15:33 | PRG ---
DATE OF SERVICE: 11/29/2018 SUBJECTIVE: This is a 52-year-old female, status post right femoral neck fracture postoperative day 2. The patient was seen sitting up in bed this morning with no signs of respiratory distress. Patient reports having pain while doing physical therapies 8/10. While resting her pain was tolerated.Otherwise, she has no other complaints. Patient is tolerating a regular diet. She denies nausea, vomiting, or diarrhea. OBJECTIVE: GENERAL: Patient is alert and oriented. VITAL SIGNS: Temperature 98 F, pulse 90, respiratory rate 12 , blood pressure 114/62. SpO2 95 room air . NEUROLOGIC: GCS is 15. Gross motor and sensation are intact. HEENT: Unremarkable. NECK: Unremarkable. PULMONARY: No signs of acute distress. Equal chest rise. All lung hernandez are clear bilaterally. HEART: Regular rate and rhythm. No murmurs. GI: Abdomen is soft. Nontender and nondistended. Positive bowel sounds. : Unremarkable. EXTREMITIES: Motor and sensation are intact. LABORATORY DATA: Hemoglobin 9.3. Electrolytes is stable; creatinine is 0.7. IMAGING DATA: No new imaging reported. IMPRESSION: 1. Status post mechanical fall from standing 2. Right femoral neck fracture 3. Post operative total right hip replacement 4. Left superior and inferior pubic rami fractures, stable; 5. Acute bronchitis, being treated before this admission with p.o.azithromycin; 6. Acute blood loss anemia; 7. History of chronic obstructive pulmonary disease; depression; anxiety; and panic disorder. PLAN: 1. We will continue to monitor the patient's hemoglobin. 2. Patient is working with Physical Therapy and Occupational Therapy to prepare for disposition in rehab facility. She is having rehab screening and waiting for placement at this time. 3. Patient was examined and discussed with Dr. Blair on round this morning, who agreed with treatment plan. Job ID: [id number] [facility]
[2018-11-29] MEDS: Atorvastatin Calcium 20 MG TAB PO SCH (20:47)
[2018-11-29] MEDS: Melatonin 3 MG TAB PO SCH (20:47)
[2018-11-29] MEDS: Enoxaparin Sodium 40 MG/0.4 ML SYRINGE SC SCH (20:48)
[2018-11-30] MEDS: Acetaminophen 500 MG TAB PO SCH ×4 (02:55→20:16)
[2018-11-30] MEDS: traMADol HCl 50 MG TAB PO SCH ×4 (02:56→20:19)
[2018-11-30] MEDS: Ibuprofen 800 MG TAB PO SCH ×3 (04:24→20:18)
[2018-11-30 05:25] LABS: Anion Gap 11 mmol/L (10-20); BUN (Urea Nitrogen) 10 mg/dL (9.8-20.1); Calc. Creatinine Clearance 98 mL/min (70-130); Calcium 8.8 mg/dL (7.8-10.44); Carbon Dioxide 28 mmol/L (22-29); Chloride 103 mmol/L (98-107); Estimated GFR-MDRD Greater than 90; Glucose 93 mg/dL (70-105); Magnesium 2.1 mg/dL (1.6-2.6); Phosphorus 3.5 mg/dL (2.3-4.7); Potassium 3.6 mmol/L (3.5-5.1); Sodium 138 mmol/L (136-145)
[2018-11-30] MEDS ORDERED: PHOS-NAK 1 PKT PACK PO SCH (07:15)
[2018-11-30] MEDS ORDERED: Potassium Chloride 20 MEQ TAB PO SCH (07:15)
[2018-11-30] MEDS: FLUoxetine HCl 20 MG CAP PO SCH (09:33)
[2018-11-30] MEDS: Ascorbic Acid 500 mg Chewable Tablet PO SCH ×2 (09:33→17:52)
[2018-11-30] MEDS: Estradiol 1 MG TAB PO SCH (09:33)
[2018-11-30] MEDS: Polyethylene Glycol 3350 17 GM Packet PO SCH (09:34)
[2018-11-30] MEDS: Senokot S 8.6-50 MG TAB PO SCH ×2 (09:34→20:18)
[2018-11-30] MEDS: Gabapentin 100 MG CAP PO SCH ×3 (09:35→20:17)
[2018-11-30] MEDS: Ferrous Sulfate 325 MG TAB PO SCH ×2 (09:40→17:52)
--- NOTE | 2018-11-30 15:42 | PRG ---
DATE OF SERVICE: 11/30/2018 SUBJECTIVE: This is a 52-year-old female patient, sustained a right femoral fracture after a ground level fall at her home. Uncomplicated postop from total right hip replacement by Dr. Corrales, day #4. The patient report no shortness of breath, no fever. Pain is well tolerated. OBJECTIVE: GENERAL: The patient is alert and oriented, in no acute distress. VITAL SIGNS: Temperature 98.4, pulse 103, respiratory rate 12, blood pressure 112/59. LUNGS: Clear bilateral. HEART: Regular rate and rhythm, no murmur. ABDOMEN: Soft, nontender, nondistended. Bowel sounds normal. EXTREMITIES: Pulse 2+ equal bilateral on extremities. Both feet are warm. Capillary refill is normal. LABORATORY DATA: Hemoglobin 9.3. Electrolytes normal. Potassium 3.6, magnesium 2.1, phosphorus 2.5. Kidney function is normal. Creatinine is 0.67. DIAGNOSTIC IMAGING: There is no new diagnostic imaging to be reviewed. ASSESSMENT: 1. Status post mechanical fall from standing at home. 2. Right femoral neck fracture. 3. Postop total right hip placement. 4. Left superior and inferior pubic rami fractures, stable. 5. Acute bronchitis, was treated with azithromycin. 6. Acute blood loss anemia. 7. History of chronic obstructive pulmonary disease, depression, anxiety, and panic disorder. PLAN: 1. The patient is continued to work with PT and OT to prepare the position in rehab facility. 2. The patient was examined and discussed with Dr. Blair on round this morning, who agreed with treatment plan. Job ID: [id number] [facility]TDD
[2018-11-30] MEDS: Atorvastatin Calcium 20 MG TAB PO SCH (20:17)
[2018-11-30] MEDS: Melatonin 3 MG TAB PO SCH (20:20)
[2018-11-30] MEDS: Enoxaparin Sodium 40 MG/0.4 ML SYRINGE SC SCH (20:21)
[2018-12-01] MEDS: Acetaminophen 500 MG TAB PO SCH ×3 (01:52→14:18)
[2018-12-01] MEDS: traMADol HCl 50 MG TAB PO SCH ×3 (01:52→14:18)
[2018-12-01] MEDS: Ibuprofen 800 MG TAB PO SCH ×2 (04:06→13:17)
[2018-12-01 05:27] LABS: #Eosinphils 0.4 thou/uL (0.0-0.7); #Lymphocytes 1.7 thou/uL (1.20-3.40); #Monocytes 0.5 thou/uL (0.11-0.59); #Neutrophils 4.6 thou/uL (1.40-6.50); %Basophils 0.6 % (0.0-1.0); %Lymphocytes 23.4 % (21.0-51.0); %Monocytes 7.1 % (0.0-10.0); %Neutrophils 63.9 % (42.0-75.0); Hemoglobin 8.1 g/dL (12.0-16.0); Mean Corpuscular HGB CONC 33.1 g/dL (32.0-36.0); Mean Corpuscular Hemoglobin 29.7 pg (27.0-31.0); Mean Corpuscular Volume 89.8 fL (78.0-98.0); Mean Platelet Volume 7.1 fL (7.4-10.4); Platelet Count 303 thou/uL (130-400); RBC Distribution Width 12.3 % (11.5-14.5); Red Blood Cell (RBC) Count 2.73 mill/uL (4.20-5.40); White Blood Cell (WBC) Count 7.2 thou/uL (4.8-10.8)
[2018-12-01 05:45] LABS: Anion Gap 11 mmol/L (10-20); BUN (Urea Nitrogen) 12 mg/dL (9.8-20.1); Calc. Creatinine Clearance 102 mL/min (70-130); Calcium 8.7 mg/dL (7.8-10.44); Carbon Dioxide 26 mmol/L (22-29); Chloride 105 mmol/L (98-107); Estimated GFR-MDRD Greater than 90; Glucose 94 mg/dL (70-105); Magnesium 1.9 mg/dL (1.6-2.6); Potassium 3.6 mmol/L (3.5-5.1); Sodium 138 mmol/L (136-145)
[2018-12-01] MEDS: Senokot S 8.6-50 MG TAB PO SCH (08:33)
[2018-12-01] MEDS: Ferrous Sulfate 325 MG TAB PO SCH ×2 (08:33→17:55)
[2018-12-01] MEDS: FLUoxetine HCl 20 MG CAP PO SCH (08:33)
[2018-12-01] MEDS: Ascorbic Acid 500 mg Chewable Tablet PO SCH ×2 (08:33→17:56)
[2018-12-01] MEDS: Estradiol 1 MG TAB PO SCH (08:35)
[2018-12-01] MEDS: Gabapentin 100 MG CAP PO SCH ×2 (08:36→14:18)
[2018-12-01] MEDS: Polyethylene Glycol 3350 17 GM Packet PO SCH (08:36)
--- NOTE | 2018-12-01 12:52 | EKG ---
Test Reason : Blood Pressure : / mmHG Vent. Rate : 089 BPM Atrial Rate : 089 BPM P-R Int : 172 ms QRS Dur : 080 ms QT Int : 368 ms P-R-T Axes : 069 018 067 degrees QTc Int : 447 ms Normal sinus rhythm Septal infarct , age undetermined Abnormal ECG Confirmed by FREIDA HARRIS, MANOHAR ([id number]), tape editor TOBIAS BURROUGHS ([id number]) on 12/01/2018 12:52:24 PM Referred By: Confirmed By:MANOHAR GUAN MD
[2018-12-01 19:35] VITALS: BP 104/65; TEMP 98.1
== END 2018-12-01 18:55 | DRG 956 ==
LOC: ERS 17:20 → SURG A 20:19
PROVIDERS: ADMIT Specialist; ATTEND Specialist
PROC: 0SR90JZ Replacement of Right Hip Joint with Synthetic Substitute, Open Approach (ICD-10-PCS; principal; 2018-11-27)
DX: S72.031A Displaced midcervical fracture of right femur, initial encounter for closed fracture (principal); S32.592A Other specified fracture of left pubis, initial encounter for closed fracture; D62 Acute posthemorrhagic anemia; W01.10XA Fall on same level from slipping, tripping and stumbling with subsequent striking against unspecified object, initial encounter; J44.9 Chronic obstructive pulmonary disease, unspecified; F32.9 Major depressive disorder, single episode, unspecified; F41.9 Anxiety disorder, unspecified; M81.0 Age-related osteoporosis without current pathological fracture; E87.6 Hypokalemia; E78.00 Pure hypercholesterolemia, unspecified; J20.9 Acute bronchitis, unspecified; Z90.710 Acquired absence of both cervix and uterus; Z90.49 Acquired absence of other specified parts of digestive tract; Z87.891 Personal history of nicotine dependence; Z88.5 Allergy status to narcotic agent
CPT/HCPCS: 36415; 51702; 71045; 72170; 80048; 80053; 81003; 81015; 83735; 84100; 85025; 85610; 85730; 87070; 87205; 93005; 93010; 94640; 96361; 96374; 96375; 96376; C1713; J0670; J0690; J1650; J1885; J2001; J2250; J2405; J2704; J3010; J3475; J3490; J7050; J7620

== ENCOUNTER 2019-01-31 10:29 | Outpatient (CLI) | payer OTHER ==
--- NOTE | 2019-01-31 13:37 | CT ---
CT CHEST WITHOUT CONTRAST: Date: 01/31/19 INDICATION: Follow-up pulmonary nodule. Comparison made to chest CT of 05/30/18 and 07/26/16. FINDINGS: Apical pleural thickening and stranding is seen with apical bullae, which appear stable. Bronchiectasis in the lingula again noted, as previously described. The questioned nodule on the prio r study is not apparent today, suggesting atelectatic change on the prior exam. There is linear stran ding in the lingula, which was present previously. There is a 4 mm nodule in the left lower lobe, image 100, axial, which is stable from previous studie s. There is a calcified nodule in the right lower lobe measuring 4 mm, which is stable. Mediastinum unremarkable. Lung hernandez otherwise clear. IMPRESSION: Chest findings appear stable. No definite nodule in the lingula seen today. Chronic changes are again noted as described above. A 4 mm nodule in the left lower lobe is stable. POS: EFREN
== END 2019-01-31 10:30 | disposition home or self-care (01) ==
LOC: BICCT 10:29
PROVIDERS: ATTEND Internal Medicine Critical Care Medicine
DX: R91.1 Solitary pulmonary nodule (principal)
CPT/HCPCS: 71250

== ENCOUNTER 2019-02-20 07:46 | Emergency (ER) | payer OTHER ==
[2019-02-20] MEDS ORDERED: Metoclopramide HCl 10 MG/2 ML VIAL ONE (08:07)
[2019-02-20] MEDS ORDERED: Ketorolac Tromethamine 30 MG/ML VIAL ONE (08:07)
[2019-02-20] MEDS ORDERED: Acetaminophen 500 MG TAB ONE (08:07)
[2019-02-20] MEDS ORDERED: diphenhydrAMINE 50 MG/ML VIAL ONE (08:07)
[2019-02-20] MEDS ORDERED: Magnesium 2 GM/50 ML BAG (IN WATER) ONE (09:44)
[2019-02-20] MEDS ORDERED: methylPREDNISolone Sod Succ/PF 125 MG/2 ML VIAL ONE (09:44)
== END 2019-02-20 10:19 | disposition home or self-care (01) ==
LOC: ERS 07:46
DX: R51 Headache (principal); E78.00 Pure hypercholesterolemia, unspecified; J44.9 Chronic obstructive pulmonary disease, unspecified; F41.9 Anxiety disorder, unspecified; F32.9 Major depressive disorder, single episode, unspecified; Z87.891 Personal history of nicotine dependence
CPT/HCPCS: 96365; 96367; 96375; J1200; J1885; J2765; J2930; J3475

== ENCOUNTER 2019-04-18 21:17 | Inpatient (IN) | payer OTHER ==
[2019-04-18] MEDS ORDERED: Fentanyl 100 MCG/2 ML VIAL ONE (21:50)
[2019-04-18] MEDS ORDERED: Lorazepam 2 MG/ML VIAL ONE (21:50)
--- NOTE | 2019-04-18 22:01 | RAD ---
Left lower leg 2 views HISTORY: Leg injury. FINDINGS: Comminuted depressed fracture of the lateral tibial plateau is evident and better detailed on dedicated knee exam. Comminuted fracture of the fibular head is also apparent with mild lateral displacement. The distal tibia and fibula are intact. Mild degenerative changes of the hindfoot. IMPRESSION: Proximal tibia and fibula fractures, better detailed on dedicated knee exam.
--- NOTE | 2019-04-18 22:03 | RAD ---
Left knee 4 views HISTORY: Left knee injury. FINDINGS: Extensively comminuted fracture of the lateral tibial plateau and tibial spines with depres michell by approximately 0.8 cm. Multiple mildly displaced intra-articular component of the fracture. Oblique nondisplaced component of the fracture extends obliquely through the proximal tibia towards t he base of the medial tibial plateau. Extensively comminuted fracture of the fibular head with mild posterior and lateral displacement of t he major fragments. Small amount of fluid distends the suprapatellar bursa. IMPRESSION: Extensively comminuted mildly displaced split depression fracture deformity of the left l ateral tibial plateau. Comminuted fracture of the left fibular head.
--- NOTE | 2019-04-18 22:15 | RAD ---
Chest one view HISTORY: Fall. Chest injury. Leg fracture. COMPARISON: 05/30/2018. FINDINGS: Cardiac silhouette is magnified by projection. Pulmonary vasculature is unremarkable. Media stinum is midline. No confluent airspace consolidation or evidence of pneumothorax. IMPRESSION: No active cardiopulmonary abnormalities are demonstrated.
--- NOTE | 2019-04-18 22:29 | CT ---
CT left knee HISTORY: Left knee injury. FINDINGS: Extensively comminuted fracture of the lateral tibial plateau and tibial spines with depres michell of the major fragment by approximately 0.8 cm. Up to 1.4 cm gap of the major sagittally oriented intra-articular component of the fracture. Multiple mildly displaced intra-articular compone nts. Nondisplaced component of the fracture extends obliquely through the proximal tibia towards the base of the medial tibial plateau. Extensively comminuted fracture of the fibular head with mild posterior and lateral displacement of t he major fragments. Small amount of fat and fluid distend the suprapatellar bursa. IMPRESSION: Extensively comminuted mildly displaced split depression fracture deformity of the left l ateral tibial plateau. Comminuted fracture of the left fibular head. Lipohemarthrosis.
[2019-04-18 22:31] LABS: #Basophils 0.1 thou/uL (0.0-0.2); #Eosinphils 0.2 thou/uL (0.0-0.7); #Lymphocytes 2.5 thou/uL (1.20-3.40); #Monocytes 0.6 thou/uL (0.11-0.59); #Neutrophils 5.3 thou/uL (1.40-6.50); %Basophils 1.1 % (0.0-1.0); %Eosinophils 2.6 % (0.0-10.0); %Lymphocytes 28.6 % (21.0-51.0); %Neutrophils 60.8 % (42.0-75.0); Hemoglobin 11.2 g/dL (12.0-16.0); Mean Corpuscular HGB CONC 33.3 g/dL (32.0-36.0); Mean Corpuscular Hemoglobin 28.1 pg (27.0-31.0); Mean Corpuscular Volume 84.4 fL (78.0-98.0); Mean Platelet Volume 6.9 fL (7.4-10.4); Platelet Count 384 thou/uL (130-400); RBC Distribution Width 13.2 % (11.5-14.5); White Blood Cell (WBC) Count 8.8 thou/uL (4.8-10.8)
[2019-04-18 22:36] LABS: INR-International Normal Ratio 0.9; Prothrombin Time 12.4 SEC (12.0-14.7)
[2019-04-18 22:51] LABS: ALT (SGPT) 19 U/L (8-55); AST (SGOT) 19 U/L (5-34); Albumin 4.1 g/dL (3.5-5.0); Alkaline Phosphatase 87 U/L (40-110); Anion Gap 13 mmol/L (10-20); BUN (Urea Nitrogen) 13 mg/dL (9.8-20.1); Bilirubin, Total 0.3 mg/dL (0.2-1.2); CK (CPK) 216 U/L (29-168); Calc. Creatinine Clearance 0 mL/min (70-130); Calcium 8.9 mg/dL (7.8-10.44); Carbon Dioxide 24 mmol/L (22-29); Chloride 107 mmol/L (98-107); Estimated GFR-MDRD 72; Globulin 2.7 g/dL (2.4-3.5); Glucose 111 mg/dL (70-105); Potassium 3.5 mmol/L (3.5-5.1); Protein, Total 6.8 g/dL (6.0-8.3); Sodium 140 mmol/L (136-145)
[2019-04-18] MEDS ORDERED: Ketorolac Tromethamine 30 MG/ML VIAL ONE (23:14)
[2019-04-19] MEDS ORDERED: Acetaminophen 1,000 MG in Premix Bag 1 BAG IVPB PRN (00:48)
[2019-04-19] MEDS ORDERED: Ondansetron PF 4 MG/2 ML Vial IVP PRN ×2 (00:49→07:21)
--- NOTE | 2019-04-19 00:51 | HP ---
REQUESTING PHYSICIAN: Dr. Cruz. ATTENDING SURGEON: Dr. Jones. CONSULTATIONS: Orthopedics, Dr. Corrales. HISTORY OF PRESENT ILLNESS: The patient is a 53-year-old woman, who was sitting on a couch at home when she stood up and twisted on her left knee. She had sudden pain and felt a pop. She was unable to bear weight on her knee. Her attempted to get her to a vehicle to bring her to the hospital, but the pain was too much, she called 911. Ambulance brought her to the emergency department where she underwent evaluation and examination and was noted to have a tibial plateau fracture and a proximal fibular fracture at which time we were asked to evaluate the patient for admission and obtain orthopedic consultation. The patient denied any fall, did not hit her head, no loss of consciousness. No syncopal symptoms prior to her fall or after. ALLERGIES: MORPHINE. THE PATIENT STATES THAT SHE DOES NOT LIKE THE WAY IT MAKES HER FEEL. CURRENT MEDICATIONS: The patient does not have her list of medications, but states that she takes a blood pressure medicine, cholesterol medicine, medication for anxiety and panic attacks and gastroesophageal reflux disease. PAST MEDICAL HISTORY: COPD, hypercholesterolemia, hypertension, anxiety, panic attacks, depression. PAST SURGICAL HISTORY: Cholecystectomy, hysterectomy, right hip replacement after fall and fracture. SOCIAL HISTORY: The patient lives at home with family. She denies drug or alcohol use. Quit smoking 2-3 years ago. She was a one pack-a-day smoker. REVIEW OF SYSTEMS: A 10-point review of systems is negative as otherwise stated. PHYSICAL EXAMINATION: VITAL SIGNS: Blood pressure 144/86, heart rate 102, respirations 20, oxygen saturation 97% on room air, temperature is 97.5. GENERAL: The patient is resting comfortably in bed. She is awake, alert, and oriented x3. Karine Coma Scale is 15. HEENT: Unremarkable. Head is normocephalic, atraumatic. Eyes, extraocular motion is intact. PERRLA bilaterally. Ears are atraumatic without discharge. Nose is atraumatic without discharge. Oropharynx is clear. NECK: Nontender. Trachea is midline. No JVD. CHEST: Clear to auscultation with good inspiratory and expiratory effort. HEART: Regular rate and rhythm. ABDOMEN: Soft, flat, nontender with active bowel sounds. BACK: Atraumatic and nontender. EXTREMITIES: Bilateral upper extremities show full active range of motion, neurovascularly intact. Right lower extremity is atraumatic, neurovascularly intact. Left lower extremity has bruising and slight swelling to the lateral aspect of the knee with marked tenderness to palpation globally, but more so on the lateral aspect. The patient is neurovascularly intact distally. LABORATORY FINDINGS: White blood cell count 8.1, hemoglobin 11.2, hematocrit 33.8, platelets 384. Sodium 140, potassium 3.5, chloride 107, CO2 of 24, BUN 13, creatinine 0.83, glucose 111. LFTs are unremarkable. PT 12, INR 0.9, PTT 28. RADIOGRAPHIC FINDINGS: AP chest x-ray shows no active cardiopulmonary abnormalities. Views of the left knee show an extensively comminuted mildly displaced split depression fracture deformity of the left lateral tibial plateau. There is also a comminuted fracture of the left fibular head. Views of the left tibia and fibula again show the proximal tibia and fibular fractures. CT of the left knee showed again an extensively comminuted mildly displaced split depression fracture deformity of the left tibial plateau and a comminuted left fibular head. ASSESSMENT/PLAN: 1. Status post possibly twisting injury to left knee. 2. Left tibial plateau and fibular head fracture. 3. History of chronic obstructive pulmonary disease. 4. History of anxiety, depression, and panic attacks. 5. History of hypertension. PLAN: Plan will be to admit the patient to surgical floor. She will be made n.p.o. after midnight. She will have pain control, pulmonary toilet, gastritis and mechanical VTE prophylaxis. The patient will be evaluated in the morning by Orthopedics to evaluate surgical options. Postoperatively, she will have physical and occupational Therapy and we will discuss placement at that time period. The patient had hip replacement in November after a fall. She was sent to inpatient rehab, but did not like it there and left after one day. The patient would likely want outpatient rehab as she did previously. Evaluation and examination were discussed with Dr. Jones prior to this dictation. Job ID: [id number]
[2019-04-19] MEDS ORDERED: D5 1/2 NS w/20 mEq KCL 1,000 ML IV SCH (01:00)
[2019-04-19 01:49] VITALS: BMI 25.5
[2019-04-19] MEDS: Fentanyl 100 MCG/2 ML VIAL SLOW IVP PRN ×2 (05:20→08:40)
[2019-04-19] MEDS ORDERED: hydrALAZINE 20 MG/ML VIAL SLOW IVP PRN (07:21)
[2019-04-19] MEDS ORDERED: Dextrose 5% in Water 1,000 ML IV PRN (07:21)
[2019-04-19] MEDS ORDERED: Ondansetron ODT 4 MG TAB PO PRN (07:21)
[2019-04-19] MEDS ORDERED: Dextrose 50% Abboject 50 ML SYRINGE SLOW IVP PRN (07:21)
[2019-04-19] MEDS ORDERED: diphenhydrAMINE 50 MG/ML VIAL IVP PRN (07:38)
[2019-04-19] MEDS ORDERED: ALPRAZolam 0.25 MG TAB PO PRN (07:43)
[2019-04-19] MEDS ORDERED: CEFAZOLIN 2 GM in Premix Bag 1 BAG IVPB SCH (07:45)
[2019-04-19] MEDS ORDERED: Acetaminophen 1,000 MG in Premix Bag 1 BAG IVPB SCH (08:00)
--- NOTE | 2019-04-19 08:04 | CON ---
DATE OF CONSULTATION: This is Lamont Saha PA-C dictating a report for Frank Corrales MD. HISTORY OF PRESENT ILLNESS: She came in last night with a left tibial plateau fracture. We were asked by the ER and Trauma to see patient. The patient was home sitting on her couch, stood up and twisted on her left leg and had sudden onset of pain. Pain, she states now is quite severe and miserable. Medications helped minutely, but she is still struggling with the pain, even with the medications that she is on. No numbness and tingling into that extremity and she is able to wiggle her toes okay, but still all this movement causes her a fair amount of pain. CURRENT MEDICATIONS: Tylenol, alprazolam, ascorbic acid, Dermoplast spray, Flexeril, estradiol, ferrous sulfate, fluoxetine, gabapentin, p.r.n. ibuprofen, DuoNebs, melatonin, nicotine patch, MiraLAX, pravastatin, Senokot, and tramadol. Please note that her medications have not been completely reconciled and this may change once the list is acquired from home. ALLERGIES: SHE HAS SENSITIVITIES TO MORPHINE. IT CAUSES ITCHING. SHE DOES NOT LIKE THE WAY IT FEELS, BUT IF NEEDED FOR PAIN CONTROL, WE COULD TRY BENADRYL PRIOR TO GIVING HER THE MORPHINE AND SHE SEEMS OKAY WITH THIS. PAST MEDICAL HISTORY: COPD, hypercholesterolemia, hypertension, anxiety, panic attacks, and depression. PAST SURGICAL HISTORY: Cholecystectomy, hysterectomy, and right hip replacement after a fall in November of this year. SOCIAL HISTORY: Lives at home with family. Mother has Alzheimer. is at home. She has 5kids. No drug or alcohol use. Quit smoking 3 or 4 years ago. FAMILY HISTORY: For this visit is noncontributory. REVIEW OF SYSTEMS: Currently other than pain in the left lower extremity, she denies any other positive review of systems. PHYSICAL EXAMINATION: GENERAL: Well-nourished, well-developed female, alert, pleasant, no acute distress. Speech clear. Affect pleasant. Answers questions appropriately. She is alert and oriented x3. HEENT: Normal exam. Face symmetric. Tongue midline. NECK: Supple. Trachea midline. Range of motion good. LUNGS: Respiratory rate 16. No distress. EXTREMITIES: Upper extremities; equal size, shape and symmetry. Normal bulk and tone. Lower extremities; swelling to the left lower extremity around the knee area. Proximal tibia pain with any movement, very tender to palpation. Moving bilateral digits on bilateral lower extremities well. Sensation is intact. ASSESSMENT: Fall with ensuing left tibial plateau fracture. PLAN: Surgery this afternoon. She will need a tibial plating ORIF. I went over the surgery with the patient. She understands risks and benefits. Her questions and concerns have been answered and she is amenable to go forth with surgery. We will get her some better pain control. She is n.p.o., get her on the surgery schedule, get her consented and she will undergo surgery this afternoon. If she has further questions prior to surgery, we will go over those at that time. Job ID: [id number]
[2019-04-19] MEDS: Ketorolac Tromethamine 30 MG/ML VIAL IVP SCH ×3 (08:39→20:55)
[2019-04-19] MEDS ORDERED: FLU VACC QS2019-20(6MOS UP)/PF 60 MCG/0.5 ML SYRINGE IM ONE (09:00)
--- NOTE | 2019-04-19 10:23 | PRG ---
DATE OF SERVICE: 04/19/2019 This is Francisco Javier Rosales PA-C dictating a report for Brandon Valente MD. SUBJECTIVE: Ms. Camarillo is a 53-year-old female, status post minor injury from changing position from sit up to stand up and twisted her left knee. She sustained left tibial plateau fracture and left fibular head fracture. She was admitted to Trauma Service for pain control. She has been n.p.o. since midnight. Orthopedic saw her, planned to take her to the OR this afternoon. Currently, the patient reports she has been doing good. Pain is well controlled. She developed no fever or shortness of breath. Her vital signs are stable. Her urine is adequate. OBJECTIVE: GENERAL: The patient lying in bed comfortable with no acute respiratory distress. VITAL SIGNS: Temperature 97.8, heart rate 86, respiratory rate 16, O sat 98 on room air, and blood pressure 132/59. LUNGS: Clear bilaterally. HEART: Regular rate and rhythm. ABDOMEN: Soft, nondistended. Bowel sounds active. EXTREMITIES: Neurovascularly intact x4. Left lower extremity bracing is fitted. No sign of compartment syndrome. NEUROLOGIC: No focal neurologic deficits. PSYCHOLOGIC: The patient oriented x3. Appropriate mood and affect. ASSESSMENT: 1. Status post minor injury from changing position and twisted her left knee. 2. Left tibial plateau fracture and left fibular head fracture. 3. History of anxiety, depression, panic attack, hypertension, and chronic obstructive pulmonary disease, stable. PLAN: Continue supportive care. Continue pain control. Continue nonpharmacological DVT prophylaxis, gastritis prophylaxis. Continue n.p.o. The patient will be taken to OR today for ORIF of left plateau fracture. Per Orthopedic, postop, the patient will be working with PT/OT. We will start pharmacologic DVT prophylaxis tomorrow. Planned placement in rehabilitation facility, but the patient raised concern that she would like to go home due to personal issue. The patient was seen and evaluated with Dr. Valente this morning. Job ID: [id number] MTDD
[2019-04-19] MEDS: Sodium Chloride 0.9% 1,000 ML IV SCH ×2 (11:37→15:55)
[2019-04-19] MEDS: Famotidine/PF 20 mg/2ml Vial SLOW IVP SCH ×2 (11:39→20:59)
[2019-04-19] MEDS: Acetaminophen 1,000 MG in Premix Bag 1 BAG IVPB SCH ×2 (12:30→19:05)
[2019-04-19] MEDS ORDERED: Ketorolac Tromethamine 30 MG/ML VIAL ONE (13:19)
[2019-04-19] MEDS ORDERED: Ondansetron PF 4 MG/2 ML Vial ONE (13:19)
[2019-04-19] MEDS ORDERED: PROPOFOL 200 MG/20 ML VIAL ONE (13:19)
[2019-04-19] MEDS ORDERED: Dexamethasone 20 MG/5 ML VIAL ONE (13:19)
[2019-04-19] MEDS ORDERED: Fentanyl 100 MCG/2 ML VIAL ONE ×2 (14:01→16:21)
[2019-04-19] MEDS ORDERED: Morphine 10 MG/ML VIAL ONE (14:44)
[2019-04-19] MEDS ORDERED: Bupivacaine HCl 0.5%/Epinephrine 1:200,000/PF 30 ml Vial ONE (15:07)
[2019-04-19] MEDS ORDERED: Promethazine HCl 25 MG/ML VIAL SLOW IVP PRN (16:21)
[2019-04-19] MEDS ORDERED: Ondansetron HCl/PF 4 MG/2 ML Vial IVP PRN (16:21)
[2019-04-19] MEDS ORDERED: Promethazine HCl 25 MG/ML VIAL IM PRN (16:21)
[2019-04-19] MEDS ORDERED: HYDROmorphone 2 MG/ML VIAL SLOW IVP PRN (16:21)
[2019-04-19] MEDS ORDERED: PACU-Morphine 4MG/ML VIAL SLOW IVP PRN (16:21)
[2019-04-19] MEDS ORDERED: Promethazine HCl 25 MG/ML VIAL ONE (16:45)
[2019-04-19] MEDS: Ascorbic Acid 500 mg Chewable Tablet PO SCH (19:36)
[2019-04-19] MEDS: Ferrous Sulfate 325 MG TAB PO SCH (19:36)
--- NOTE | 2019-04-19 19:49 | RAD ---
INTRAOPERATIVE IMAGING LEFT KNEE, TWO VIEW: 04/19/19 INDICATION: Tibial plateau fracture. FINDINGS/IMPRESSION: Plate and screw fixation partially visualized transfixing the proximal tibial fracture. POS: KENK
[2019-04-19] MEDS ORDERED: busPIRone HCl 5 MG TAB PO PRN (20:36)
[2019-04-19] MEDS ORDERED: ALPRAZolam 1 MG TAB PO PRN (20:36)
[2019-04-19] MEDS ORDERED: traMADol HCl 50 MG TAB PO PRN (20:40)
--- NOTE | 2019-04-19 20:59 | PRG ---
DATE OF SERVICE: 04/19/2019 SUBJECTIVE: The patient is currently on surgical floor. She is status post open reduction and internal fixation of a left tibial plateau fracture. The patient underwent her procedure today. She tolerated it well. She had not returned to the floor early enough to work with therapy, but we suspect this will happen tomorrow. The patient is tolerating a diet. Her pain is controlled. PHYSICAL EXAMINATION: VITAL SIGNS: Stable. The patient is afebrile. GENERAL: The patient is resting comfortably in bed. She is awake, alert, and oriented x3. Karine Coma Scale is 15. HEENT: Unremarkable. LUNGS: Clear to auscultation with good inspiratory and expiratory effort. HEART: Regular rate and rhythm. ABDOMEN: Soft, flat, nontender with active bowel sounds. EXTREMITIES: Neurovascularly intact x4. Left lower extremity has a knee immobilizer in place. The dressing on the knee appears to be clean, dry, and intact. ASSESSMENT: 1. Status post open reduction and internal fixation of left tibial plateau fracture and left fibular head fracture. 2. History of anxiety, depression, panic attack, hypertension, and chronic obstructive pulmonary disease. PLAN: Plan will be to continue supportive care, physical and occupational therapy. Adjust all pain medications to oral and await placement decision. Job ID: [id number]
[2019-04-19] MEDS ORDERED: Non-Formulary Item 1 EACH (Pravastatin Sodium [Pravastatin Sodium] 80 MG) PO SCH (21:00)
[2019-04-19] MEDS: Atorvastatin Calcium 20 MG TAB PO SCH (21:29)
--- NOTE | 2019-04-19 22:16 | OP ---
DATE OF PROCEDURE: 04/19/2019 OPERATION: Open reduction and internal fixation of left tibial plateau fracture. PREOPERATIVE DIAGNOSIS: Left lateral split and depressed tibial plateau fracture. POSTOPERATIVE DIAGNOSIS: Left lateral split and depressed tibial plateau fracture. COMPLICATIONS: None. ESTIMATED BLOOD LOSS: 150 mL. ANESTHESIA: General plus local. CHECKERER HAND: Lamont Saha PA-C. IMPLANTS: Synthes proximal tibial plate with multiple nonlocking and locking screws. INDICATIONS: Ms. Camarillo is a 53-year-old female who injured her left leg. She sustained a tibial plateau fracture with displacement and depression of the joint surface. She was indicated for open reduction and fixation of the fracture to restore anatomic alignment and promote healing and promote mobilization. Risks have been reviewed in detail. She elected to proceed with the operation. DESCRIPTION OF PROCEDURE: Ms. Camarillo was identified in the preoperative holding area. Her correct extremity was marked. She was carried to the operating room. She was positioned supine. General anesthesia was induced. A multidisciplinary time-out was performed. The left lower extremity was prepped and draped in sterile fashion. We began the procedure with an anterolateral approach to the tibia. We dissected down through the subcutaneous tissues to the fascia, which was opened. We exposed the underlying tibial cortex. At this point, we opened the joint in a submeniscal approach and placed a stay suture into the meniscus. At this point, we irrigated the joint. We then evaluated the fracture. We elevated the lateral cortical bony fragment to give us a window. We encountered a significantly impacted joint surface. We elevated this with an elevator and K-wire, the joint surface back into its anatomic position. At this point, we placed approximately 20 mL of cancellous chips in the defect. These were impacted to support the bone. Next, we closed down the lateral cortex. We then applied a Synthes proximal tibial plate. We placed multiple screws along the plate locking the plate to the bone and supporting our fracture. We took x-ray images confirming hardware placement and plate position. There were no complications. At this point, we closed in appropriate layers. A sterile dressing was applied. The patient was taken to the recovery room in good condition without complication. Job ID: [id number]
[2019-04-19] MEDS: CEFAZOLIN 2 GM in Premix Bag 1 BAG IVPB SCH (22:37)
[2019-04-19] MEDS: Acetaminophen 500 MG TAB PO SCH (23:35)
[2019-04-20] MEDS: Ketorolac Tromethamine 30 MG/ML VIAL IVP SCH ×2 (02:34→08:29)
[2019-04-20 05:23] LABS: #Lymphocytes 1.1 thou/uL (1.20-3.40); #Monocytes 0.7 thou/uL (0.11-0.59); #Neutrophils 7.5 thou/uL (1.40-6.50); %Basophils 0.3 % (0.0-1.0); %Eosinophils 0.1 % (0.0-10.0); %Lymphocytes 12.2 % (21.0-51.0); %Monocytes 7.1 % (0.0-10.0); %Neutrophils 80.3 % (42.0-75.0); Hemoglobin 9.6 g/dL (12.0-16.0); Mean Corpuscular HGB CONC 33.3 g/dL (32.0-36.0); Mean Corpuscular Hemoglobin 28.7 pg (27.0-31.0); Mean Corpuscular Volume 86.4 fL (78.0-98.0); Platelet Count 297 thou/uL (130-400); RBC Distribution Width 13.3 % (11.5-14.5); Red Blood Cell (RBC) Count 3.34 mill/uL (4.20-5.40); White Blood Cell (WBC) Count 9.3 thou/uL (4.8-10.8)
[2019-04-20] MEDS: CEFAZOLIN 2 GM in Premix Bag 1 BAG IVPB SCH (05:30)
[2019-04-20] MEDS: Acetaminophen 500 MG TAB PO SCH ×4 (05:30→23:49)
[2019-04-20 05:35] LABS: Phosphorus 2.9 mg/dL (2.3-4.7)
[2019-04-20 05:41] LABS: Anion Gap 10 mmol/L (10-20); BUN (Urea Nitrogen) 9 mg/dL (9.8-20.1); Calc. Creatinine Clearance 95 mL/min (70-130); Calcium 8.1 mg/dL (7.8-10.44); Carbon Dioxide 25 mmol/L (22-29); Chloride 107 mmol/L (98-107); Estimated GFR-MDRD 83; Glucose 119 mg/dL (70-105); Potassium 3.7 mmol/L (3.5-5.1); Sodium 138 mmol/L (136-145)
[2019-04-20] MEDS: FLUoxetine HCl 20 MG CAP PO SCH ×2 (08:30→08:39)
[2019-04-20] MEDS: Estradiol 1 MG TAB PO SCH (08:30)
[2019-04-20] MEDS: Venlafaxine HCl XR 75 MG CAP PO SCH (08:30)
[2019-04-20] MEDS: Ferrous Sulfate 325 MG TAB PO SCH ×2 (08:30→17:20)
[2019-04-20] MEDS: Ascorbic Acid 500 mg Chewable Tablet PO SCH ×2 (08:30→17:20)
[2019-04-20] MEDS: Escitalopram Oxalate 20 mg Tablet PO SCH (08:31)
[2019-04-20] MEDS ORDERED: Famotidine 20 MG TAB PO SCH (09:00)
[2019-04-20] MEDS: traMADol HCl 50 MG TAB PO PRN ×2 (09:46→16:45)
--- NOTE | 2019-04-20 10:10 | PRG ---
DATE OF SERVICE: 04/20/2019 This is Francisco Javier Rosales PA-C dictating a report for Brandon Valente MD. SUBJECTIVE: Ms. Camarillo is a 53-year-old female, status post injury from changing position from sitting up to standing up and twisted her left knee. She sustained left tibial plateau fracture and left fibular head fracture. She underwent ORIF with left tibial plateau fracture with Dr. Corrales yesterday. Postop, the patient reports she has been doing good in regard to pain control. She developed no fever or shortness of breath. Her vital signs stable. Her urine is adequate. She has been resumed on all of her home medications. We did find out she used Prozac and Lexapro at home. Plan will be to discontinue Prozac at this moment. The patient raised concern that she will not be able to go to rehab. OBJECTIVE: GENERAL: The patient currently lying in the bed comfortable with no acute respiratory distress. GCS 15. VITAL SIGNS: Temperature 97.6, heart rate 80, respiratory rate 18, O2 saturation 96% on room air, and blood pressure 110/64. LUNGS: Clear bilaterally. HEART: Regular rate and rhythm. ABDOMEN: Soft, nondistended. Bowel sounds are active. EXTREMITIES: Neurovascularly intact x4. Left lower extremity bracing. No signs of compartment syndrome. Postop dressing dry, clean, and intact. NEUROLOGY: No focal neurology deficits. The patient is oriented x3. ASSESSMENT: 1. Status post injury from changing position and twisted her left knee. 2. Left tibial plateau fracture, left fibular head fracture, status post open reduction and internal fixation of left tibial plateau fracture. 3. History of anxiety and depression. 4. Hypertension. 5. Diabetes. 6. Chronic obstructive pulmonary disease. PLAN: We will continue supportive care. Continue pain control. We will start Lovenox for DVT prophylaxis today. Continue gastritis prophylaxis. Continue working with PT/OT. Discontinue Prozac today and continue Lexapro as home med. We will check back with PT to see how the patient is doing and if she can be safe to go home on Tuesday. The patient was seen and evaluated with Dr. Valente on round this morning. Job ID: [id number]
[2019-04-20] MEDS: Enoxaparin Sodium 40 MG/0.4 ML SYRINGE SC SCH (20:39)
[2019-04-20] MEDS: Atorvastatin Calcium 20 MG TAB PO SCH (20:40)
[2019-04-20] MEDS: Senokot S 8.6-50 MG TAB PO SCH (20:40)
--- NOTE | 2019-04-20 23:27 | PRG ---
DATE OF SERVICE: SUBJECTIVE: The patient is currently on the surgical floor. She is status post open reduction and internal fixation of left tibial plateau fracture. She is postop day #1 from this. Today, she has had no issues. She is tolerating a diet and she began working with Physical and Occupational Therapy. She ambulated approximately 100 feet with therapist. She states that her pain is controlled. OBJECTIVE: VITAL SIGNS: Stable. The patient is afebrile. GENERAL: The patient is resting comfortably in bed. She is awake, alert, and oriented x3. [place] Coma Scale is 15. HEENT: Unremarkable. LUNGS: Respirations are nonlabored. EXTREMITIES: Neurovascularly intact. The patient's left lower extremity has a knee immobilizer in place and the dressing beneath it appears to be clean, dry, and intact. ASSESSMENT: 1. Status post open reduction and internal fixation of left tibial plateau fracture and left fibular head fracture. 2. History of anxiety, depression, panic attack, hypertension, and chronic obstructive pulmonary disease. PLAN: Plan will be to continue supportive care, physical and occupational therapy. The patient currently is declining inpatient rehab and would like to be discharged home with therapy. We will relay this to Case Management and have them work on this. Job ID: [id number]
[2019-04-21] MEDS: Cyclobenzaprine 10 MG TAB PO PRN ×3 (03:01→21:31)
[2019-04-21] MEDS: traMADol HCl 50 MG TAB PO PRN ×3 (03:03→20:37)
[2019-04-21] MEDS: Acetaminophen 500 MG TAB PO SCH ×4 (06:07→23:59)
[2019-04-21] MEDS: Polyethylene Glycol 3350 17 GM Packet PO SCH (08:40)
[2019-04-21] MEDS: Estradiol 1 MG TAB PO SCH (08:40)
[2019-04-21] MEDS: Senokot S 8.6-50 MG TAB PO SCH ×2 (08:41→20:37)
[2019-04-21] MEDS: Ferrous Sulfate 325 MG TAB PO SCH ×2 (08:41→17:48)
[2019-04-21] MEDS: Escitalopram Oxalate 20 mg Tablet PO SCH (08:42)
[2019-04-21] MEDS: Venlafaxine HCl XR 75 MG CAP PO SCH (08:42)
[2019-04-21] MEDS: Ascorbic Acid 500 mg Chewable Tablet PO SCH ×2 (08:42→17:48)
--- NOTE | 2019-04-21 10:21 | PRG ---
DATE OF SERVICE: 04/21/2019 SUBJECTIVE: Ms. Camarillo is a 53-year-old female, status post injury from changing position and twisted her knee. She sustained left tibial plateau fracture and left fibular head fracture. She underwent ORIF of left tibial plateau fracture with Dr. Corrales, postoperative day #2. The patient reports pain has been controlled. She developed no fever or shortness of breath. Vital signs have been stable. She tolerated her regular diet. Her urine is adequate. The patient is still thinking on possibility to go to rehabilitation of Tuesday or going home. OBJECTIVE: GENERAL: The patient is lying down in bed, comfortable with no acute respiratory distress. VITAL SIGNS: Temperature 99, heart rate 99, respiratory rate 16, O2 saturation 95% on room air, and blood pressure 125/72. LUNGS: Clear bilaterally. HEART: Regular rate and rhythm. ABDOMEN: Soft, nondistended. EXTREMITIES: Neurovascularly intact x4. Left lower extremity brace and postoperative dressing clean, dry, intact. NEUROLOGY: No focal neurologic deficits. ASSESSMENT: 1. Status post injury from changing position and twisted her knee. 2. Left tibial plateau fracture, left fibular head fracture status post open reduction internal fixation of left tibial plateau fracture, postop day #2. 3. History of anxiety, depression, hypertension, and diabetes. PLAN: Will be continue supportive care. Continue pain control. Continue DVT prophylaxis. The patient will be working with PT/OT today. Plan placement in rehabilitation facility or going home on Tuesday if physical therapy agree. Job ID: [id number]
[2019-04-21] MEDS: Enoxaparin Sodium 40 MG/0.4 ML SYRINGE SC SCH (20:37)
[2019-04-21] MEDS: Atorvastatin Calcium 20 MG TAB PO SCH (20:37)
--- NOTE | 2019-04-22 00:18 | PRG ---
DATE OF SERVICE: SUBJECTIVE: Patient remains on the surgical floor. She is status post open reduction internal fixation of a left tibial plateau fracture. She is postop day 2. She reports no issues. She states her pain is controlled. She worked with Physical and Occupational Therapy today and she is tolerating a diet. PHYSICAL EXAMINATION: VITAL SIGNS: Stable. Patient is afebrile. GENERAL: The patient is resting comfortably in bed. She is awake, alert, and oriented x3. [place] Coma Scale is 15. HEENT: Unremarkable. LUNGS: Clear to auscultation with good inspiratory and expiratory effort. I explained incentive spirometry again with the patient at this time. ABDOMEN: Soft, flat, and nontender with active bowel sounds. EXTREMITIES: Neurovascularly intact x4. Postop dressing is clean, dry, and intact. Knee immobilizer is in place. ASSESSMENT/PLAN: 1. Status post open reduction internal fixation of left tibial plateau fracture. 2. Left fibular head fracture. 3. History of anxiety, depression, panic attack, hypertension, and chronic obstructive pulmonary disease. PLAN: Plan will be to continue supportive care. Encouraged physical and occupational therapy. Encouraged incentive spirometry use and await placement decision. Job ID: [id number]
[2019-04-22] MEDS: Acetaminophen 500 MG TAB PO SCH ×4 (05:26→23:19)
[2019-04-22] MEDS: traMADol HCl 50 MG TAB PO PRN ×2 (05:26→18:04)
[2019-04-22] MEDS: Venlafaxine HCl XR 75 MG CAP PO SCH (10:05)
[2019-04-22] MEDS: Estradiol 1 MG TAB PO SCH (10:06)
[2019-04-22] MEDS: Escitalopram Oxalate 20 mg Tablet PO SCH (10:06)
[2019-04-22] MEDS: Ascorbic Acid 500 mg Chewable Tablet PO SCH ×2 (10:06→18:02)
[2019-04-22] MEDS: Ferrous Sulfate 325 MG TAB PO SCH ×2 (10:06→18:03)
[2019-04-22] MEDS: Senokot S 8.6-50 MG TAB PO SCH ×2 (10:06→20:57)
[2019-04-22] MEDS: Polyethylene Glycol 3350 17 GM Packet PO SCH (10:07)
[2019-04-22] MEDS: Cyclobenzaprine 10 MG TAB PO PRN (12:53)
[2019-04-22] MEDS ORDERED: Non-Formulary Item 1 EACH (Ibandronate Sodium [Boniva] 1 TAB) PO SCH (13:15)
[2019-04-22] MEDS ORDERED: IBANDRONATE SODIUM PO SCH (13:15)
[2019-04-22] MEDS: Enoxaparin Sodium 40 MG/0.4 ML SYRINGE SC SCH (20:57)
[2019-04-22] MEDS: Atorvastatin Calcium 20 MG TAB PO SCH (20:57)
[2019-04-22] MEDS: Gabapentin 300 MG CAP PO SCH (20:57)
--- NOTE | 2019-04-22 22:13 | PRG ---
DATE OF SERVICE: 04/22/2019 SUBJECTIVE: The patient remains on the surgical floor. The patient is postop day #3 open reduction and internal fixation of left tibial plateau fracture. The patient is currently sleeping comfortably. OBJECTIVE: VITAL SIGNS: Stable, afebrile. GENERAL: Resting comfortably, respirations even and unlabored. ASSESSMENT: 1. Status post open reduction and internal fixation of left tibial plateau fracture. 2. Left fibular head fracture. 3. History of anxiety, depression, panic attack, hypertension, and chronic obstructive pulmonary disease. PLAN: Continue supportive care. Continue physical and occupational therapy. The patient will most likely be discharged home tomorrow. Job ID: [id number]
[2019-04-23] MEDS: traMADol HCl 50 MG TAB PO PRN (04:27)
[2019-04-23] MEDS: Acetaminophen 500 MG TAB PO SCH ×2 (05:37→12:13)
[2019-04-23] MEDS ORDERED: predniSONE 20 MG TAB PO SCH (08:00)
--- NOTE | 2019-04-23 08:30 | PRG ---
DATE OF SERVICE: 04/22/2019 SUBJECTIVE: Ms. Camarillo is a 53-year-old female, status post injury from changing position and twisted her knee. She sustained left tibial plateau fracture and left fibular head fracture. She underwent ORIF of left tibial plateau fracture with Dr. Corrales, postop day 3. The patient reports she has been doing good. Pain is well controlled. She developed no fever or shortness of breath. She is able to walk around the floor using a walker yesterday with PT/OT. Her urine is adequate and the patient wished to go home tomorrow with home health. OBJECTIVE: GENERAL: The patient is lying down in bed comfortable with no acute respiratory distress. VITAL SIGNS: Stable. LUNGS: Clear bilaterally. HEART: Regular rate and rhythm. ABDOMEN: Soft, nondistended. Bowel sounds active. EXTREMITIES: Neurovascularly intact x4. Left lower extremity brace, postoperative dressing clean, dry, intact. NEUROLOGIC: No focal neurology deficits. ASSESSMENT: 1. Status post injury from changing position and twisted her knee. 2. Left tibial plateau fracture, left fibular head fracture, status post open reduction and internal fixation of left tibial plateau fracture, postop day 3. 3. History of anxiety, depression, hypertension, diabetes. PLAN: We will continue supportive care. Continue pain control. Continue DVT prophylaxis continue working with PT/OT. Plan placement to go home tomorrow. Physical therapy agree the patient can go home with family support. Job ID: [id number]
[2019-04-23] MEDS: Ferrous Sulfate 325 MG TAB PO SCH (09:15)
[2019-04-23] MEDS: Venlafaxine HCl XR 75 MG CAP PO SCH (09:16)
[2019-04-23] MEDS: Ascorbic Acid 500 mg Chewable Tablet PO SCH (09:16)
[2019-04-23] MEDS: Senokot S 8.6-50 MG TAB PO SCH (09:16)
[2019-04-23] MEDS: Escitalopram Oxalate 20 mg Tablet PO SCH (09:16)
[2019-04-23] MEDS: Gabapentin 300 MG CAP PO SCH (09:16)
[2019-04-23] MEDS: Polyethylene Glycol 3350 17 GM Packet PO SCH (09:17)
[2019-04-23] MEDS: Estradiol 1 MG TAB PO SCH (09:17)
[2019-04-23 11:31] VITALS: BP 125/74; TEMP 98.3
--- NOTE | 2019-04-24 08:32 | DIS ---
DATE OF ADMISSION: 04/19/2019 DATE OF DISCHARGE: 04/23/2019 ADMISSION DIAGNOSES: 1. Status post injury from changing position and twisted her knee. 2. Left tibial plateau fracture, left fibular head fracture. 3. History of anxiety, depression, hypertension, diabetes. DISCHARGE DIAGNOSES: 1. Status post injury from changing position and twisted her knee. 2. Left tibial plateau fracture, left fibular head fracture status post open reduction and internal fixation of left tibial plateau fracture, postop day 4. 3. History of anxiety, depression, hypertension, diabetes, stable. CONSULTING PHYSICIAN: Dr. Corrales. PROCEDURE: ORIF of left tibial plateau fracture. HOSPITAL COURSE: Ms. Camarillo is a 53-year-old female, status post minor injury from changing position and twisted her knee. She sustained left tibial plateau fracture and left fibular head fracture. She has a history of anxiety, depression, hypertension, diabetes. She underwent ORIF of left tibial plateau fracture with Dr. Corrales, today postop day 4. The patient reports she has been doing good. Pain is well controlled. She developed no fever or shortness of breath. Her vital signs are stable. She tolerated her regular diet. She is able to work with PT and OT. She is to ambulate using a walker and she also can use a wheelchair. She stated that the family support includes her , her daughter, and her niece at home. She wished to go home and PT is agreeable with her plan to go home with family support. PHYSICAL EXAMINATION: GENERAL: The patient is lying in bed, comfortable. No acute respiratory distress. VITAL SIGNS: Temperature 97, heart rate 93, respiratory rate 14, O2 saturation 95 on room air, blood pressure 117/71. LUNGS: Clear bilaterally. HEART: Regular rate and rhythm. ABDOMEN: Soft, nondistended. Bowel sounds active. EXTREMITIES: Neurovascularly intact x4. Left lower extremity brace, postoperative dressing clean, dry, and intact. NEUROLOGIC: No focal neurology deficits. DISCHARGE DISPOSITION: Home. DISCHARGE CONDITION: Good. DISCHARGE INSTRUCTIONS: The patient is to take medication as directed. The patient is to walk regularly using walker or ambulate around in a wheelchair as much as she can. The patient is to see Dr. Corrales in 10 days. The patient will have diabetic diet. DISCHARGE MEDICATIONS: 1. Lovenox subcutaneous 40 mg every day. 2. Tramadol p.r.n. for pain. 3. Tylenol. 4. Ibuprofen. Job ID: [id number]
[2019-04-24] MEDS ORDERED: Ibuprofen 600 MG TAB PO SCH (14:00)
--- NOTE | 2019-04-25 05:08 | PQF ---
GIACOMO LIZAMA KIMIYE MD [id number] [facility] 3318 [id number] CLINICAL DOCUMENTATION CLARIFICATION FORM: POST DISCHARGE Addendum to original discharge summary date: ____ Late entry note date: __ DATE: 04/25/19 ATTN:Robert Venegas Please exercise your independent, professional judgment in responding to the clarification form. Clinical indicators are provided on the bottom of this form for your review Based on your clinical judgment, can you please specify the known or suspected condition being treated, evaluated or monitored? Please check appropriate box(s): [ ] Tibial platue fracture due to osteopenia [ ] Tibial platue fracture due to trauma [ ] Tibial platue fracture unspecified [ ] Other diagnosis [ ] Unable to determine For continuity of documentation, please document condition throughout progress notes and discharge summary. Thank You. CLINICAL INDICATORS - SIGNS / SYMPTOMS / LABS HP 04/18 "sitting on a couch at home when she stood up and twisted on her left knee" HP 04/18 "s/p possibility twisting injury to left knee" HP 04/18 "left tibial platue and fibular head fracture" DS 04/23 "status post injury from changing position and twisted her knee" ED Notes 04/19 "Osteopenia" RISK FACTORS HP 04/18-53 years old female HP 04/18-Former smoker HP 04/18-left tibial platue and fibular head fracture ED Notes 04/19-Osteopenia HP 04/18-hx of fall Anesthesia-Obesity Anesthesia-OA TREATMENTS: Collected 04/18-Knee Xray Collected 04/18-Tibia/Fibula Xray OP Note 04/19-ORIF of tibia DS 04/23-PT MAR 04/19-IVF (This form is maintained as a part of the permanent medical record) 2014 [employer]. All Rights Reserved [email or web address] [not provided] [email or web address]
--- NOTE | 2019-04-25 05:13 | PQF ---
GIACOMO LIZAMA KIMIYE MD [id number] [facility] 3318 [id number] CLINICAL DOCUMENTATION CLARIFICATION FORM: POST DISCHARGE Addendum to original discharge summary date: ____ Late entry note date: __ DATE: 04/25/19 ATTN:Robert Venegas Please exercise your independent, professional judgment in responding to the clarification form. Clinical indicators are provided on the bottom of this form for your review Based on your clinical judgment, can you please specify the known or suspected condition being treated, evaluated or monitored? Please check appropriate box(s): [ ] Acute blood loss anemia [ ] Chronic blood loss anemia [ ] Anemia unspecified [ ] Other diagnosis [ ] Unable to determine In addition, please specify: Present on Admission (POA): [ ] Yes [ ] No [ ] Unable to determine For continuity of documentation, please document condition throughout progress notes and discharge summary. Thank You. CLINICAL INDICATORS - SIGNS / SYMPTOMS / LABS Anesthesia "Chronic anemia" OP Note 04/19 "EBL:150ml" Labs RBC: 04/18=4.00 04/20=3.34 Labs Hgb: 04/18= 11.2 04/20=9.6 Labs Hct: 04/18=33.8 04/20=28.8 RISK FACTORS HP 04/18-53 years old female HP 04/18-Former smoker HP 04/18-left tibial platue and fibular head fracture Anesthesia-Obesity Anesthesia-Anemia OP Note 04/19-s/p ORIF TREATMENTS: AUG 14-IVF Collected 04/18-Laboratory monitoring AUG 14-Ferrous sulfate 325mg Oral (This form is maintained as a part of the permanent medical record) 2014 [employer]. All Rights Reserved [email or web address] [not provided] MTDD
== END 2019-04-23 13:00 | disposition home or self-care (01) | DRG 494 ==
LOC: ERS 21:17 → SJJU 04-19 00:45
PROVIDERS: ADMIT Surgery; ATTEND Surgery
PROC: 3E02340 Introduction of Influenza Vaccine into Muscle, Percutaneous Approach (ICD-10-PCS; principal; 2019-04-19)
PROC: 0QSH04Z Reposition Left Tibia with Internal Fixation Device, Open Approach (ICD-10-PCS; 2019-04-19)
DX: S82.142A Displaced bicondylar fracture of left tibia, initial encounter for closed fracture (principal); S82.832A Other fracture of upper and lower end of left fibula, initial encounter for closed fracture; X58.XXXA Exposure to other specified factors, initial encounter; Z23 Encounter for immunization; F41.0 Panic disorder [episodic paroxysmal anxiety]; K21.9 Gastro-esophageal reflux disease without esophagitis; J44.9 Chronic obstructive pulmonary disease, unspecified; E78.00 Pure hypercholesterolemia, unspecified; I10 Essential (primary) hypertension; F32.9 Major depressive disorder, single episode, unspecified; Z96.641 Presence of right artificial hip joint; M85.80 Other specified disorders of bone density and structure, unspecified site; E11.9 Type 2 diabetes mellitus without complications; Z91.81 History of falling; Z87.891 Personal history of nicotine dependence; Z88.5 Allergy status to narcotic agent; Z90.49 Acquired absence of other specified parts of digestive tract; Z90.710 Acquired absence of both cervix and uterus; Z79.51 Long term (current) use of inhaled steroids; Z79.899 Other long term (current) drug therapy; E78.5 Hyperlipidemia, unspecified; D64.9 Anemia, unspecified; M19.90 Unspecified osteoarthritis, unspecified site; E66.9 Obesity, unspecified; Z68.25 Body mass index [BMI] 25.0-25.9, adult
CPT/HCPCS: 36415; 71045; 76000; 80048; 80053; 82550; 83735; 84100; 85025; 85610; 85730; 93005; 94640; 96374; 96375; C1713; G0390; J0131; J0670; J0690; J1100; J1650; J1885; J2060; J2270; J2405; J2550; J2704; J3010; J7512; J7620; S0028

== ENCOUNTER 2019-04-29 14:27 | Emergency (ER) | payer OTHER ==
[2019-04-29 16:11] LABS: #Eosinphils 0.3 thou/uL (0.0-0.7); #Lymphocytes 2.5 thou/uL (1.20-3.40); #Monocytes 0.6 thou/uL (0.11-0.59); #Neutrophils 4.5 thou/uL (1.40-6.50); %Basophils 0.2 % (0.0-1.0); %Eosinophils 3.8 % (0.0-10.0); %Lymphocytes 31.5 % (21.0-51.0); %Monocytes 7.1 % (0.0-10.0); %Neutrophils 57.5 % (42.0-75.0); Mean Corpuscular HGB CONC 32.5 g/dL (32.0-36.0); Mean Corpuscular Hemoglobin 28.1 pg (27.0-31.0); Mean Corpuscular Volume 86.4 fL (78.0-98.0); Mean Platelet Volume 6.2 fL (7.4-10.4); Platelet Count 541 thou/uL (130-400); RBC Distribution Width 13.3 % (11.5-14.5); Red Blood Cell (RBC) Count 3.58 mill/uL (4.20-5.40); White Blood Cell (WBC) Count 7.8 thou/uL (4.8-10.8)
--- NOTE | 2019-04-29 16:17 | RAD ---
XR Tib Fib Lt Leg 2 View History: Injury. Surgery. Comparison: Radiograph 04/19/2019 Findings: Continued satisfactory postoperative appearance of the tibial plateau fracture fixated with lateral plate and screw fixation. No acute superimposed fracture is appreciated. Impression: Continued satisfactory postoperative appearance.
--- NOTE | 2019-04-29 16:18 | RAD ---
XR Knee Lt 3 View History: Pain Comparison: Radiograph 04/19/2019 Findings: Continued satisfactory postoperative appearance of the tibial plateau fracture fibular neck fracture appears to be healing. Impression: Continued satisfactory postoperative appearance.
[2019-04-29] MEDS ORDERED: diphenhydrAMINE 50 MG/ML VIAL ONE (16:23)
[2019-04-29] MEDS ORDERED: Morphine 4 MG/ML VIAL ONE (16:23)
--- NOTE | 2019-04-29 16:29 | RAD ---
3 VIEWS LEFT FOOT: Date: 04/29/19 COMPARISON: None. HISTORY: Left foot pain. FINDINGS: No acute fracture or evidence of dislocation. IMPRESSION: No acute findings. POS: [facility]
--- NOTE | 2019-04-29 16:30 | RAD ---
LEFT ANKLE 3 VIEWS: Date: 04/29/19 COMPARISON: None. HISTORY: Fall, trauma, pain. FINDINGS: There is mild lateral soft tissue swelling. The talar dome and ankle mortise are intact. No acute fra cture or evidence of dislocation. IMPRESSION: Lateral soft tissue swelling with no fracture or dislocation. POS: [facility]
[2019-04-29 16:37] LABS: ALT (SGPT) 13 U/L (8-55); AST (SGOT) 16 U/L (5-34); Albumin 3.5 g/dL (3.5-5.0); Alkaline Phosphatase 86 U/L (40-110); Anion Gap 11 mmol/L (10-20); BUN (Urea Nitrogen) 7 mg/dL (9.8-20.1); Bilirubin, Total 0.4 mg/dL (0.2-1.2); Calc. Creatinine Clearance 0 mL/min (70-130); Calcium 9.1 mg/dL (7.8-10.44); Carbon Dioxide 33 mmol/L (22-29); Chloride 99 mmol/L (98-107); Estimated GFR-MDRD 85; Globulin 2.9 g/dL (2.4-3.5); Glucose 98 mg/dL (70-105); Protein, Total 6.4 g/dL (6.0-8.3); Sodium 140 mmol/L (136-145)
[2019-04-29 16:39] LABS: Potassium 2.7 mmol/L (3.5-5.1)
--- NOTE | 2019-04-29 16:58 | ULT ---
US Venous Doppler Lt Unilat History: Pain and edema Comparison: None. Findings: Real-time grayscale, color, and spectral analysis of the left lower extremity venous system was performed. The common femoral, femoral, proximal portions greater saphenous and deep femoral veins as well as the popliteal and posterior tibial veins were interrogated. Normal flow, augmentation, and compression. Impression: No deep venous thrombosis.
[2019-04-29] MEDS ORDERED: Potassium Chloride 20 MEQ TAB ONE (17:13)
== END 2019-04-29 17:54 | disposition home or self-care (01) ==
LOC: ERS 14:27
DX: G89.18 Other acute postprocedural pain (principal); M25.561 Pain in right knee; J44.9 Chronic obstructive pulmonary disease, unspecified; E78.00 Pure hypercholesterolemia, unspecified; M81.0 Age-related osteoporosis without current pathological fracture; F32.9 Major depressive disorder, single episode, unspecified; F41.9 Anxiety disorder, unspecified; Z87.891 Personal history of nicotine dependence
CPT/HCPCS: 36415; 80053; 85025; 85379; 96374; 96375; J1200; J2270

== ENCOUNTER 2019-05-06 15:36 | Observation (INO) | payer OTHER ==
[~2019-05-06 15:36] MED LIST: Iopamidol-370 76% 500 ML 1 ML ONE
[2019-05-06 16:01] LABS: #Basophils 0.1 thou/uL (0.0-0.2); #Eosinphils 0.7 thou/uL (0.0-0.7); #Lymphocytes 2.4 thou/uL (1.20-3.40); #Monocytes 0.5 thou/uL (0.11-0.59); #Neutrophils 4.5 thou/uL (1.40-6.50); %Eosinophils 9.1 % (0.0-10.0); %Monocytes 6.2 % (0.0-10.0); %Neutrophils 54.8 % (42.0-75.0); Hemoglobin 11.6 g/dL (12.0-16.0); Mean Corpuscular HGB CONC 32.8 g/dL (32.0-36.0); Mean Corpuscular Hemoglobin 28.1 pg (27.0-31.0); Mean Corpuscular Volume 85.8 fL (78.0-98.0); Mean Platelet Volume 6.2 fL (7.4-10.4); Platelet Count 552 thou/uL (130-400); RBC Distribution Width 13.6 % (11.5-14.5); Red Blood Cell (RBC) Count 4.12 mill/uL (4.20-5.40); White Blood Cell (WBC) Count 8.2 thou/uL (4.8-10.8)
[2019-05-06 16:24] LABS: ALT (SGPT) 13 U/L (8-55); AST (SGOT) 16 U/L (5-34); Albumin 4.1 g/dL (3.5-5.0); Alkaline Phosphatase 132 U/L (40-110); Anion Gap 12 mmol/L (10-20); BUN (Urea Nitrogen) 7 mg/dL (9.8-20.1); Bilirubin, Total 0.4 mg/dL (0.2-1.2); Calc. Creatinine Clearance 0 mL/min (70-130); Calcium 9.3 mg/dL (7.8-10.44); Carbon Dioxide 30 mmol/L (22-29); Chloride 100 mmol/L (98-107); Estimated GFR-MDRD 80; Globulin 3.2 g/dL (2.4-3.5); Glucose 98 mg/dL (70-105); Lipase 23 U/L (8-78); Protein, Total 7.3 g/dL (6.0-8.3); Sodium 139 mmol/L (136-145)
[2019-05-06 16:42] LABS: Potassium 2.8 mmol/L (3.5-5.1)
[2019-05-06] MEDS ORDERED: diphenhydrAMINE 50 MG/ML VIAL ONE (17:14)
[2019-05-06] MEDS ORDERED: Aspirin Chewable 81 MG TAB ONE (17:14)
[2019-05-06] MEDS ORDERED: Acetaminophen 500 MG TAB ONE (17:14)
[2019-05-06] MEDS ORDERED: Metoclopramide HCl 10 MG/2 ML VIAL ONE (17:14)
[2019-05-06] MEDS ORDERED: Magnesium 2 GM/50 ML BAG (IN WATER) ONE (17:30)
[2019-05-06] MEDS ORDERED: Potassium Chloride 40 MEQ in Sodium Chloride 0.9% 250 ML 250 ML IVPB SCH (18:00)
--- NOTE | 2019-05-06 18:00 | CT ---
CTA CHEST WITH CONTRAST: Technique: Multiplanar reconstruction and 3D post processing performed according to angio protocol. Indications: Chest pain, shortness of breath. FINDINGS: Pulmonary arteries show no evidence of filling defect or pulmonary embolus. Thoracic aorta is unremar kable with no evidence of dissection. The lung hernandez appear well aerated and clear. There are chronic lung changes or small blebs seen in the apices. Mild interstitial thickening. No effusion. No mass. IMPRESSION: 1. No evidence of pulmonary embolus. 2. No evidence of acute lung process. POS: [facility]
--- NOTE | 2019-05-06 18:26 | PDOC.FPRHP ---
Addendum entered and electronically signed by Franchesca Lai MD 05/06/19 22:58: 53 yo f admitted for atypical chest pain and hypokalemia. Pt has a heart score of 3, for risk factors and nonspecific EKG changes. Will trend trops and recheck an EKG if chest pain returns. It is very atypical in nature. Suspect MSK vs costochondritis. Replaced potassium and will recheck in the am. In regard to the pt's headache and neck pain, it was improved after receviign tylenol, benadryl, and reglan in the ER. We will have these medications available prn. We will observe her overnight. Consider dc in the am. Manolo Mallory MD, PGY-3 Original Note: - History of Present Illness Chief Complaint: Chest pain, Neck pain, Headache History of Present Illness: 53 yo F with history of COPD and hyperlipidemia present with neck pain, chest pain, and headache. Chest pain is right sided, sharp, constant, no associated shortness of breath, n/v. It started while at rest, laying in bed today. She has never had this pain before. No cardiac hx.The neck pain is on the right side. The chest pain radiates to her neck. It is now improved after getting medicine in the ER. The headache is also improved. The headache is frontal, bilateral. No vision changes, no sensitivity to light or sound. She does have a hx of migraines, but this feels different. The headache is also constant. She recently had knee surgery, mid April. She hasn't done any heavy lifting. She had a stress test one year ago and was normal. . ED Course: In the ED: She was given 1000 mg of Tylenol, Metoclopramide 10 mg, and Benadryl 25 mg, which alleviated her headache and chest pain. ASA 324 mg was given for chest pain. Mag 2 g and K 40 mEq were given to replace the low K and replenish Mag. - Allergies/Adverse Reactions Allergies Allergy/AdvReac Type Severity Reaction Status Date / Time morphine Allergy Verified 11/26/18 20:46 - Home Medications Medication Instructions Recorded Confirmed Type Estradiol 2 mg PO DAILY 08/14/15 04/19/19 History Pravastatin Sodium 80 mg PO HS #30 tab 05/31/18 04/19/19 Rx FLUoxetine HCl [Fluoxetine HCl] 40 mg PO DAILY 11/27/18 04/19/19 History Ascorbic Acid [Vitamin C] 500 mg PO BID-WM tab 11/29/18 04/19/19 Rx Ferrous Sulfate [Feosol] 325 mg PO BID-WM tab 11/29/18 04/19/19 Rx ALPRAZolam [Xanax] 1 mg PO BID PRN 04/19/19 04/19/19 History Cyclobenzaprine [Flexeril] 10 mg PO TID PRN 04/19/19 04/19/19 History Escitalopram Oxalate [Lexapro] 20 mg PO DAILY 04/19/19 04/19/19 History Gabapentin [Neurontin] 300 mg PO TID 04/19/19 04/19/19 History Ibandronate Sodium [Boniva] 1 tab PO SEEPHYS 04/19/19 04/19/19 History Ibuprofen [Motrin] 800 mg PO Q8H PRN 04/19/19 04/19/19 History Ipratropium/Albuterol Sulfate 3 ml NEB [id number] PRN 04/19/19 04/19/19 History [DuoNeb] Ondansetron [Zofran ODT] 4 mg PO Q8HR PRN 04/19/19 04/19/19 History Pantoprazole [Protonix] 40 mg PO DAILY 04/19/19 04/19/19 History Venlafaxine HCl [Venlafaxine HCl 75 mg PO DAILY 04/19/19 04/19/19 History ER] busPIRone HCl [Buspirone HCl] 7.5 mg PO BID PRN 04/19/19 04/19/19 History hydrOXYzine [Atarax] 25 mg PO Q8HR PRN 04/19/19 04/19/19 History predniSONE 20 mg PO QAM-WM 04/19/19 04/19/19 History Acetaminophen [Tylenol Extra 1,000 mg PO Q6HR tab 04/23/19 Rx Strength] Enoxaparin Sodium [Lovenox] 40 mg SC 2100 #14 syringe 04/23/19 Rx Gabapentin [Neurontin] 300 mg PO BID #20 cap 04/23/19 Rx Ibuprofen [Motrin] 600 mg PO Q8HR tab 04/23/19 Rx Sennosides/Docusate Sodium 2 tab PO BID tab 04/23/19 Rx [Senokot S] traMADol HCl [Ultram] 100 mg PO Q6H PRN #20 tab 04/23/19 Rx - History PMHx:COPD, HLD, Panic Attacks, Depression, Osteoporosis PSHx: Hip Replacement (right) November 2018, Left knee surgery (04/2019), Hysterectomy ~10 years ago, Cholecystectomy FHx:Mother-lymphedema, Father-uknown, when pt was young, but he had COPD Social:Denies smoking (used to smoke >20 years for 1ppd, stopped 2-3 years ago) ) alcohol, drug use Allergies: morphine (is not a true allergy), confirmed with patient - Review of Systems General: denies: fever/chills Eyes: denies: vision changes ENT: denies: nasal congestion, rhinorrhea Respiratory: denies: cough, congestion, shortness of breath Cardiovascular: reports: chest pain, edema (on L ankle after surgery on L knee on 04/19) Gastrointestinal: reports: vomiting. denies: nausea, diarrhea, constipation, abdominal pain Genitourinary: denies: dysuria Skin: denies: rashes Musculoskeletal: reports: tenderness (L leg where edema is present). denies: pain Neurological: denies: numbness, weakness Psychological: reports: depression - Vital signs BP: 146/69 HR: 93 RR: 18 Tmax: 98.1 Pox: 97% on RA Wt: 61.2 kg - Physical Exam Constitutional: NAD, awake, alert and oriented, well developed HEENT: normocephalic and atraumatic, conjunctiva clear, no scleral icterus Neck: supple, trachea midline -Chest: TTP over the R pectoralis major muscle and some at the R costochondral junction of ribs 1-3. Heart: RRR, normal S1/S2 Lungs: CTAB Abdomen: soft, non-tender, bowel sounds present Musculoskeletal: normal structure, normal tone, ROM grossly normal Neurological: no focal deficit, CN II-XII intact, normal sensation Skin: no rash/lesions Heme/Lymphatic: no unusual bruising or bleeding, no purpura, no petechia Psychiatric: normal mood and affect FMR H&P: Results - Labs Result Diagrams: 05/06/19 15:49 05/06/19 21:16 Lab results: WBC 8.2 thou/uL (4.8-10.8) 05/06/19 15:49 Hgb 11.6 g/dL (12.0-16.0) L 05/06/19 15:49 Hct 35.4 % (36.0-47.0) L 05/06/19 15:49 MCV 85.8 fL (78.0-98.0) 05/06/19 15:49 Plt Count 552 thou/uL (130-400) H 05/06/19 15:49 Neutrophils % 54.8 % (42.0-75.0) 05/06/19 15:49 Sodium 139 mmol/L (136-145) 05/06/19 15:49 Potassium 2.8 mmol/L (3.5-5.1) L* 05/06/19 15:49 Chloride 100 mmol/L (98-107) 05/06/19 15:49 Carbon Dioxide 30 mmol/L (22-29) H 05/06/19 15:49 BUN 7 mg/dL (9.8-20.1) L 05/06/19 15:49 Creatinine 0.76 mg/dL (0.6-1.1) 05/06/19 15:49 Glucose 98 mg/dL (70-105) 05/06/19 15:49 Calcium 9.3 mg/dL (7.8-10.44) 05/06/19 15:49 Total Bilirubin 0.4 mg/dL (0.2-1.2) 05/06/19 15:49 AST 16 U/L (5-34) 05/06/19 15:49 ALT 13 U/L (8-55) 05/06/19 15:49 Alkaline Phosphatase 132 U/L (40-110) H 05/06/19 15:49 Serum Total Protein 7.3 g/dL (6.0-8.3) 05/06/19 15:49 Albumin 4.1 g/dL (3.5-5.0) 05/06/19 15:49 Lipase 23 U/L (8-78) 05/06/19 15:49 FMR H&P: A/P - Problem List (1) Anemia Current Visit: Yes Status: Acute Code(s): D64.9 - ANEMIA, UNSPECIFIED (2) Thrombocytosis Current Visit: Yes Status: Acute (3) Elevated alkaline phosphatase level Current Visit: Yes Status: Acute Code(s): R74.8 - ABNORMAL LEVELS OF OTHER SERUM ENZYMES (4) Hypokalemia Current Visit: No Status: Acute Code(s): E87.6 - HYPOKALEMIA (5) Chest pain Current Visit: Yes Status: Acute Code(s): R07.9 - CHEST PAIN, UNSPECIFIED (6) Anxiety Current Visit: Yes Status: Acute Code(s): F41.9 - ANXIETY DISORDER, UNSPECIFIED (7) Depression Current Visit: Yes Status: Acute Code(s): F32.9 - MAJOR DEPRESSIVE DISORDER , SINGLE EPISODE, UNSPECIFIED (8) COPD (chronic obstructive pulmonary disease) Current Visit: Yes Status: Acute - Plan 53 yo F with history of COPD and hyperlipidemia present with neck pain, chest pain, and headache. 1. Symptomatic Hypokalemia K: 2.6 > 2.8 * U wave present in leads 4 & 5 * Mag and Phos replaced in ER * Will monitor with CMP 2. Chest Pain, Atypical R pectoralis region with radiation to neck * Heart Score: 3 * Stress preformed 05/30/19 was normal * Currently on medication for hyperlipidemia at home. Will restart * Troponin: <0.1, will trend * Will hold off on ordering stress for now. Will consider if trop is elevated. 3. Anemia Hgb: 11.6 * Stable * Before surgery: 11.2 * Ordered peripheral smear * Ordered ferritin to evaluate for Iron deficiency as a source for thrombocytosis 4. Elevated Alk Phos Cholecystectomy 9 years ago * History of Osteoprosis likely source * Ordered CMP, will monitor 5. Thrombocytosis Plt: 525 * Recently had surgery on 04/19 possible reactive 2/2 surgery * Ordered peripheral smear * Ordered Ferritin, if less than 15 likely related to Iron deficiency 6. History of Anxiety & Depression * Will reconcile home meds and restart 7. COPD * Currently using inhaler as needed at home * Will monitor, currently maintaining sats well on room air Diet: HHLSo Lines: Peripheral, SL Code Status: Full PCP: Mikaela Pryor [facility] Dispo: Obs, LOS < 48H. Will monitor electrolytes and evaluate for causes of thrombocytosis FMR H&P: Upper Level - Plan Date/Time: 05/06/19 1824 I, [], have evaluated this patient and agree with findings/plan as outlined by internal control consultant resident. Pertinent changes/additions are listed here. Addendum - Attending - Attending Attestation Date/Time: 05/06/19 2351 I personally evaluated the patient and discussed the management with Dr. Misha Santana I agree with the History, Examination, Assessment and Plan documented above with any addition or exceptions noted below - 53 yo F with history of COPD and hyperlipidemia present with neck pain, chest pain, and headache. Chest pain is right sided, sharp, constant, no associated shortness of breath, n/v. It started while at rest, laying in bed today. She has never had this pain before. No cardiac hx. Patient is using walker due to recent knee surgery and non- weightbearing status. Afebrile VSS Exam repeated by me and agree with resident' s findings. EKG- nonspecific ST changes. K=2.6, Mg=1.9, trop <0.010 A/P: 1) Atypical chest pain - Heart score=3; if troponins continue to be negative, will not order stress test. 2) Hypokalemia- continue replacement and recheck in AM.
[2019-05-06 19:19] LABS: Troponin I Less than 0.010 ng/mL (< 0.028)
[2019-05-06 19:40] VITALS: BMI 24.9
[2019-05-06] MEDS ORDERED: Ondansetron ODT 4 MG TAB PO PRN (19:58)
[2019-05-06] MEDS ORDERED: Ondansetron PF 4 MG/2 ML Vial IVP PRN (19:58)
[2019-05-06] MEDS ORDERED: Acetaminophen 325 MG TAB PO PRN (19:58)
[2019-05-06] MEDS: Famotidine 20 MG TAB PO SCH (20:38)
[2019-05-06 21:11] LABS: RBC Morphology Normal
[2019-05-06 21:45] LABS: Anion Gap 11 mmol/L (10-20); BUN (Urea Nitrogen) 7 mg/dL (9.8-20.1); Calc. Creatinine Clearance 91 mL/min (70-130); Calcium 8.6 mg/dL (7.8-10.44); Carbon Dioxide 28 mmol/L (22-29); Chloride 102 mmol/L (98-107); Estimated GFR-MDRD 82; Glucose 104 mg/dL (70-105); Potassium 3.2 mmol/L (3.5-5.1); Sodium 138 mmol/L (136-145)
[2019-05-06 21:58] LABS: Troponin I 0.015 ng/mL (< 0.028)
[2019-05-07 05:24] LABS: ALT (SGPT) 13 U/L (8-55); AST (SGOT) 12 U/L (5-34); Albumin 3.4 g/dL (3.5-5.0); Alkaline Phosphatase 106 U/L (40-110); Anion Gap 9 mmol/L (10-20); BUN (Urea Nitrogen) 7 mg/dL (9.8-20.1); Bilirubin, Total 0.5 mg/dL (0.2-1.2); Calc. Creatinine Clearance 94 mL/min (70-130); Calcium 8.9 mg/dL (7.8-10.44); Carbon Dioxide 28 mmol/L (22-29); Chloride 105 mmol/L (98-107); Estimated GFR-MDRD 85; Globulin 2.7 g/dL (2.4-3.5); Glucose 94 mg/dL (70-105); Potassium 3.4 mmol/L (3.5-5.1); Protein, Total 6.1 g/dL (6.0-8.3); Sodium 139 mmol/L (136-145)
--- NOTE | 2019-05-07 05:26 | PDOC.FM ---
- Subjective Subjective: Ms. Camarillo is doing well this morning. Her chest pain and headache have resolved. - Objective MAR Reviewed: Yes Vital Signs & Weight: Vital Signs (12 hours) Temp Pulse Resp BP Pulse Ox 05/07/19 04:04 99 F 72 12 132/59 L 96 05/06/19 19:35 98.0 F 70 10 L 123/62 96 Weight Weight 65.771 kg Result Diagrams: 05/06/19 15:49 05/07/19 04:30 Radiology: CTA negative Phys Exam - Physical Examination Constitutional: NAD HEENT: PERRLA, moist MMs, sclera anicteric Neck: supple, full ROM Respiratory: no wheezing, no rales, no rhonchi, clear to auscultation bilateral Cardiovascular: RRR, no significant murmur, no rub Gastrointestinal: soft, non-tender, no distention, positive bowel sounds Musculoskeletal: no edema, pulses present Neurological: non-focal, moves all 4 limbs Psychiatric: normal affect, A&O x 3 Skin: no rash, normal turgor, cap refill <2 seconds Dx/Plan - Plan Plan: 53 yo F with history of COPD and hyperlipidemia present with neck pain, chest pain, and headache. Symptomatic Hypokalemia K: 2.6 > 2.8 > 3.2 > 3.4 Started oral potassium 20 BID. Patient states that she has potassium at home, she is unsure why she took it in the past. Non-cardiac chest pain Heart Score: 3 Stress preformed 05/30/18 was normal Trops negative x2. Chest pain was reproducible to palpation and has since resolved. Normocytic anemia Hgb: 11.6. Stable Ferritin WNL Elevated Alkaline Phosphatase Cholecystectomy 9 years ago History of Osteoprosis likely source 132 > 106 Thrombocytosis Plt: 525 Recently had surgery on 04/19 possible reactive 2/2 surgery Ordered peripheral smear History of Anxiety & Depression Will reconcile home meds and restart COPD Currently using inhaler as needed at home Will monitor, currently maintaining sats well on room air Diet: HHLSo Lines: Peripheral, SL Code Status: Full PCP: [facility] Dispo: Stable, d/c home today. Patient has appt with PCP ([facility]) tomorrow. Addendum - Attending - Attending Attestation Date/Time: 05/08/19 1112 I personally evaluated the patient and discussed the management with Dr. Fairbanks yesterday. I agree with the History, Examination, Assessment and Plan documented above with any addition or exceptions noted below.
[2019-05-07 07:13] VITALS: BP 121/55
[2019-05-07 07:58] VITALS: TEMP 98.9
[2019-05-07] MEDS ORDERED: Potassium Chloride 20 MEQ TAB PO SCH (08:00)
[2019-05-07] MEDS: Famotidine 20 MG TAB PO SCH (08:19)
[2019-05-07] MEDS ORDERED: Enoxaparin Sodium 40 MG/0.4 ML SYRINGE SC SCH (09:00)
[2019-05-07] MEDS ORDERED: FLU VACC QS2019-20(6MOS UP)/PF 60 MCG/0.5 ML SYRINGE IM ONE (09:00)
--- NOTE | 2019-05-08 11:22 | DIS ---
DATE OF ADMISSION: 05/06/2019 DATE OF DISCHARGE: 05/07/2019 CONSULT: None. PROCEDURES: CT angiogram. PRIMARY DIAGNOSES: Symptomatic hypokalemia, atypical chest pain. SECONDARY DIAGNOSES: Anemia, elevated alkaline phosphatase, thrombocytosis, anxiety and depression, chronic obstructive pulmonary disease. DISCHARGE MEDICATIONS: 1. Xanax. 2. BuSpar. 3. Flexeril. 4. Escitalopram. 5. Estradiol. 6. Fluoxetine. 7. Hydrocodone. 8. Hydroxyzine. 9. Motrin. 10. DuoNeb. 11. Protonix. 12. Prednisone. 13. Lovenox. 14. Ferrous sulfate. 15. Gabapentin. 16. Potassium chloride. 17. Pravastatin. 18. Tramadol. Discontinued medication: None. HISTORY OF PRESENT ILLNESS/HOSPITAL COURSE: Ms. Camarillo is a 53-year-old female with a history of COPD and hyperlipidemia that presented with neck pain, chest pain, and headache. The chest pain was sharp, right-sided, constant without associated shortness of breath, diaphoresis, nausea, or vomiting. She began having chest pains while lying in bed at rest. She has never had pain like this before and she does not have a cardiac history. She also was experiencing a headache. She recently underwent surgery for a left tibia plate fracture and a fibular head fracture in April and has been using her upper extremity to move around. On physical exam, the pain was reproducible on palpation. Her CT angiogram was negative for pulmonary emboli. Her troponin was negative x2, and her potassium on admission was noted to be 2.6. She was monitored overnight on telemetry without any notable cardiac arrhythmias. The next day, she was re-evaluated and her chest pain was thought to be noncardiac in nature given the resolution of her symptoms, the reproducibility of her pain, and the negative cardiac enzymes. Her HEART score was 3. She had a stress test done in May of 2018 that was normal. DISPOSITION: Stable. DISCHARGE INSTRUCTIONS: 1. Location: Home. 2. Diet: Heart healthy. 3. Activity: Ad michael. 4. Follow up with primary care physician within 1 week. Job ID: [id number]
== END 2019-05-07 12:00 | disposition home or self-care (01) ==
LOC: ERS 15:36 → 2SW 19:35
PROVIDERS: ADMIT Family Medicine; ATTEND Family Medicine
DX: E87.6 Hypokalemia (principal); R07.89 Other chest pain; D64.9 Anemia, unspecified; R74.8 Abnormal levels of other serum enzymes; J44.9 Chronic obstructive pulmonary disease, unspecified; E78.5 Hyperlipidemia, unspecified; F32.9 Major depressive disorder, single episode, unspecified; F41.9 Anxiety disorder, unspecified; M81.0 Age-related osteoporosis without current pathological fracture; D47.3 Essential (hemorrhagic) thrombocythemia; Z87.891 Personal history of nicotine dependence; Z79.52 Long term (current) use of systemic steroids; Z79.899 Other long term (current) drug therapy; Z88.5 Allergy status to narcotic agent
CPT/HCPCS: 36415; 71275; 80053; 82728; 83690; 83735; 84484; 85025; 85060; 93005; 96365; 96367; 96368; 96372; 96375; G0378; J1200; J1650; J2765; J3475; J3480; J7050; Q9967

== ENCOUNTER 2019-06-27 14:01 | Outpatient (CLI) | payer OTHER ==
--- NOTE | 2019-06-27 14:41 | ULT ---
LEFT LOWER EXTREMITY SONOGRAM: HISTORY: Left leg pain and edema. FINDINGS: The left common femoral vein and greater saphenous junction were evaluated, along with the femoral, d eep femoral, popliteal and posterior tibial veins. There is good color and spectral Doppler flow, com pression and augmentation. IMPRESSION: Normal examination. POS: TPC
== END 2019-06-27 14:02 | disposition home or self-care (01) ==
LOC: ULT 14:01
PROVIDERS: ATTEND Physician Assistant Surgical
DX: S82.142D Displaced bicondylar fracture of left tibia, subsequent encounter for closed fracture with routine healing (principal)

== ENCOUNTER 2019-07-06 07:46 | Day surgery (SDC) | payer OTHER ==
[2019-07-05 13:47] VITALS: BMI 24.0
[2019-07-06] MEDS ORDERED: PROPOFOL 200 MG/20 ML VIAL ONE (09:17)
[2019-07-06] MEDS ORDERED: Ondansetron PF 4 MG/2 ML Vial ONE (09:17)
[2019-07-06] MEDS ORDERED: Lidocaine 1% PF 5 ML VIAL ONE (09:17)
[2019-07-06] MEDS ORDERED: ePHEDrine/0.9% NaCl/PF SYRINGE 50 mg/10 ml ONE (09:17)
[2019-07-06] MEDS ORDERED: Dexamethasone 20 MG/5 ML VIAL ONE (09:17)
[2019-07-06] MEDS ORDERED: Fentanyl 100 MCG/2 ML VIAL ONE ×4 (11:28→12:59)
[2019-07-06] MEDS ORDERED: Bupivacaine PF 0.5% 30 ML VIAL ONE ×2 (11:40→12:14)
[2019-07-06] MEDS ORDERED: Triamcinolone 40 MG/ML VIAL ONE (11:40)
[2019-07-06] MEDS ORDERED: diphenhydrAMINE 50 MG/ML VIAL ONE (12:59)
--- NOTE | 2019-07-06 18:08 | OP ---
DATE OF PROCEDURE: 07/06/2019 PROCEDURE PERFORMED: Left proximal tibial plate hardware removal with closure of wound. PREOPERATIVE DIAGNOSIS: Wound dehiscence with history of proximal tibial plate. POSTOPERATIVE DIAGNOSIS: Wound dehiscence with history of proximal tibial plate. COMPLICATIONS: None. ESTIMATED BLOOD LOSS: 50 mL. IMPLANTS: None. INDICATIONS: Ms. Camarillo is a 53-year-old female who has injured her proximal tibia. Three months ago, she was treated with open reduction and internal fixation to restore the alignment of the proximal tibia and promote healing. She healed her fracture. However, she has had a chronic wound over her anterior incision. She has been indicated now for hardware removal with wound closure with a goal of allow wound healing and to ensure that she has no deep infection. Risks have been reviewed in detail. She elected to proceed with the operation. DESCRIPTION OF PROCEDURE: Ms. Camarillo was identified in the preoperative holding area. Her correct extremity was marked. She was carried to the operating room. She was positioned supine. General anesthesia was induced. A multidisciplinary time-out was performed. The left lower extremity was prepped and draped in sterile fashion. We began the procedure with excising the patient's previous wound and scar. We worked more deeply down to the fascia, which was opened. The wound did not communicate deeply to the plate. We went ahead and incised the fascia and exposed the underlying hardware. We removed all screws as well as the plate. We smoothed the bony contours. At this point, we thoroughly irrigated with copious lavage. Next, we again trimmed the skin edges sharply. We then performed closure of the wound with 0 Vicryl suture, 2-0 Vicryl suture, and nylon for the skin. A sterile dressing was applied. At this point, the patient was taken to the recovery room in good condition. Job ID: [id number]
== END 2019-07-06 14:07 | disposition home or self-care (01) ==
LOC: SDC 07:46
PROVIDERS: ATTEND Orthopaedic Surgery
PROC: 0QPH04Z Removal of Internal Fixation Device from Left Tibia, Open Approach (ICD-10-PCS; principal; 2019-07-06)
DX: T81.31XA Disruption of external operation (surgical) wound, not elsewhere classified, initial encounter (principal); E78.5 Hyperlipidemia, unspecified; M81.0 Age-related osteoporosis without current pathological fracture; F32.9 Major depressive disorder, single episode, unspecified; F41.9 Anxiety disorder, unspecified; Z87.891 Personal history of nicotine dependence; Z79.52 Long term (current) use of systemic steroids; Z79.899 Other long term (current) drug therapy; Z88.5 Allergy status to narcotic agent
CPT/HCPCS: J1100; J1200; J2001; J2405; J2704; J3010; J3301; S0020

== ENCOUNTER 2019-08-31 17:20 | Inpatient (IN) | payer OTHER ==
[~2019-08-31 17:20] MED LIST changes: +Iopamidol 370 76% 100 ML VIAL ONE; -Iopamidol-370 76% 500 ML 1 ML ONE
[2019-08-31] MEDS ORDERED: Ondansetron PF 4 MG/2 ML Vial ONE (17:37)
[2019-08-31] MEDS ORDERED: diphenhydrAMINE 50 MG/ML VIAL ONE (17:37)
[2019-08-31] MEDS ORDERED: Morphine 4 MG/ML VIAL ONE (17:37)
[2019-08-31 17:47] LABS: #Eosinphils 0.2 thou/uL (0.0-0.7); #Lymphocytes 2.9 thou/uL (1.20-3.40); #Monocytes 0.7 thou/uL (0.11-0.59); #Neutrophils 4.6 thou/uL (1.40-6.50); %Basophils 0.5 % (0.0-1.0); %Eosinophils 2.6 % (0.0-10.0); %Lymphocytes 34.3 % (21.0-51.0); %Monocytes 8.1 % (0.0-10.0); %Neutrophils 54.5 % (42.0-75.0); Hemoglobin 12.6 g/dL (12.0-16.0); Mean Corpuscular HGB CONC 33.8 g/dL (32.0-36.0); Mean Corpuscular Hemoglobin 28.7 pg (27.0-31.0); Mean Corpuscular Volume 84.9 fL (78.0-98.0); Mean Platelet Volume 6.7 fL (7.4-10.4); Platelet Count 439 thou/uL (130-400); RBC Distribution Width 14.3 % (11.5-14.5); Red Blood Cell (RBC) Count 4.38 mill/uL (4.20-5.40); White Blood Cell (WBC) Count 8.4 thou/uL (4.8-10.8)
--- NOTE | 2019-08-31 17:48 | RAD ---
XR Chest 1 View Portable History: Chest pain Comparison: Radiograph April 2019 Findings: The lungs are clear. No pneumothorax or effusion. Cardiac silhouette and mediastinal contou rs are within normal limits. No acute osseous abnormality. Impression: No acute intrathoracic abnormality.
[2019-08-31 18:10] LABS: ALT (SGPT) 18 U/L (8-55); AST (SGOT) 26 U/L (5-34); Albumin 4.1 g/dL (3.5-5.0); Alkaline Phosphatase 112 U/L (40-110); Anion Gap 16 mmol/L (10-20); BHCG - Serum Negative (NEGATIVE); BUN (Urea Nitrogen) 7 mg/dL (9.8-20.1); Bilirubin, Total 0.3 mg/dL (0.2-1.2); CK (CPK) 75 U/L (29-168); Calc. Creatinine Clearance 0 mL/min (70-130); Calcium 9.2 mg/dL (7.8-10.44); Carbon Dioxide 24 mmol/L (22-29); Chloride 103 mmol/L (98-107); Estimated GFR-MDRD 75; Globulin 3.1 g/dL (2.4-3.5); Glucose 109 mg/dL (70-105); Potassium 3.5 mmol/L (3.5-5.1); Pregs Control Background? CLEAR/WHITE (CLR/WHITE); Pregs Control Bar Appear? YES (CONTROL BAR); Protein, Total 7.2 g/dL (6.0-8.3); Sodium 139 mmol/L (136-145)
--- NOTE | 2019-08-31 18:25 | CT ---
CT Aortic Dissection Protocol History: Sudden onset severe chest pain Comparison: CT angiogram chest May 2019 Findings: CT angiogram of the chest and abdomen performed after the intravenous ministration of contr ast. 3-D rendering was provided. The aortic contour is normal. No dissection nor aneurysm. No intramural hematoma or penetrating ather osclerotic ulcer. Mild atherosclerotic plaque distal aorta. The thyroid is relatively unremarkable. No mediastinal adenopathy. The proximal pulmonary arteries are without a filling defect. Mild scarring in the lung apices. No pn eumonia. No pneumothorax or effusion. No acute thoracic spine abnormality. Healing sternal fracture. There is narrowing of the celiac trunk due to the median arcuate ligament with poststenotic dilatatio n. No hydronephrosis. [place] effect of the common bile duct. The spleen, pancreas, adrenal glands are unremarkable. The appendix is visualized and is normal. No dilated loops of bowel in the abdomen. Impression: 1. Healing sternal fracture. 2. No aortic aneurysm or dissection. No penetrating atherosclerotic ulcer nor intramural hematoma. 3. Narrowed celiac trunk due to the median arcuate ligament with poststenotic dilatation. 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
[2019-08-31] MEDS ORDERED: Acetaminophen 325 MG TAB PO PRN ×2 (19:09→20:44)
[2019-08-31] MEDS ORDERED: Ondansetron PF 4 MG/2 ML Vial IVP PRN (19:09)
[2019-08-31] MEDS ORDERED: Ondansetron ODT 4 MG TAB SL PRN (19:09)
[2019-08-31] MEDS ORDERED: Aspirin Chewable 81 MG TAB ONE (19:14)
[2019-08-31] MEDS ORDERED: HYDROcodone/Acetaminophen 5/325 mg Tablet PO PRN ×4 (20:44→22:06)
[2019-08-31] MEDS ORDERED: Famotidine 20 MG TAB PO SCH (21:00)
--- NOTE | 2019-08-31 21:29 | PDOC.HHP ---
Hospitalist HPI - History of Present Illness chest pain History of Present Illness: 53F presents to the ED for evaluation of substernal chest pain which started today when she was out working in her yard. Reports it radiated across her chest and made her nauseated and short of breath. She reports she vomited several times. Denies diaphoresis. Denies any current pain, SOB or any nausea. Reports a recent stress test but last one located in our records is from 05/23 and was normal with an EF 75%. She was admitted in May 2019 with right sided chest pain and discharged after troponins were negative. Admitted in April 2019 for left Tib/Fib fracture which required surgical repair. Is a former smoker. Denies a history of CAD. ED Course: EKG with NSR 92, ST segments normal, conduction normal, septal Q waves, CTA chest negative for emboli, lab work largely unremarkable. Has a healing sternal fracture on the CTA. Was given ASA, Morphine, benadryl and zofran while in the ED. Currently resting comfortably, denies pain or nausea. Hospitalist ROS - Review of Systems Constitutional: denies: fever, chills, sweats, weakness, malaise, other Eyes: denies: pain, vision change, conjunctivae inflammation, eyelid inflammation, redness, other ENT: denies: ear pain, ear discharge, nose pain, nose discharge, nose congestion , mouth pain, mouth swelling, throat pain, throat swelling, other Respiratory: reports: shortness of breath Cardiovascular: reports: chest pain Gastrointestinal: reports: nausea, vomiting. denies: abdominal pain, diarrhea Genitourinary: denies: dysuria, frequency, incontinence, hematuria, retention, other Musculoskeletal: reports: shoulder pain (right shoulder pain, chronic, awaiting outpatient MRI) Skin: denies: rash, lesions, tamara, bruising, other Neurological: denies: weakness, numbness, incoordination, change in speech, confusion, seizures, other Hospitalist History - Past Medical History Cardiac: reports: Hyperlipidemia Pulmonary: reports: COPD, lung disease Musculoskeletal: reports: Other (Osteoporesis) ENT: denies: no pertinent history, Sinusitis, Allergic rhinitis, Other Renal/: denies: no pertinent history, Chronic renal insuff, Acute renal failure, Chronic renal failure, UTI, Benign prostatic enlarg., Hematuria, Other Endocrine: denies: no pertinent history, Diabetes, Hyperthyroidism, Hypothyroidism, Hyperparathyroidism, Osteopenia, Osteoporosis, Other Dermatology: denies: no pertinent history, Eczema, Cellulitis, Psoriasis, Melanoma, Basal cell, Squamous cell, Other - Past Surgical History Past Surgical History: reports: Cholecystectomy, Hysterectomy, Total Hip Replacement (left tib/fib repair with plate/screws and subsequent hardware removal) - Family History Family History: reports: no pertinent history - Social History Smoking Status: Former smoker Alcohol: reports: None Drugs: reports: none Living Situation: With Family Activity level: independent ambulation - Exam Eye: PERRL ENT: normocephalic atraumatic, moist mucosa Neck: supple, symmetric, no JVD Heart: RRR, no murmur Respiratory: CTAB, normal chest expansion Gastrointestinal: soft, non-tender Extremities: no edema Skin: normal turgor Neurological: cranial nerve grossly intact Musculoskeletal: normal tone, normal strength Musculoskeletal - other findings: right shoulder pain, reports chronic and limited ROM Psychiatric: normal affect, A&O x 3 Hospitalist Results - Labs Result Diagrams: 08/31/19 17:30 08/31/19 17:30 Lab results: WBC 8.4 thou/uL (4.8-10.8) 08/31/19 17:30 Hgb 12.6 g/dL (12.0-16.0) 08/31/19 17:30 Hct 37.2 % (36.0-47.0) 08/31/19 17:30 MCV 84.9 fL (78.0-98.0) 08/31/19 17:30 Plt Count 439 thou/uL (130-400) H 08/31/19 17:30 Neutrophils % 54.5 % (42.0-75.0) 08/31/19 17:30 Sodium 139 mmol/L (136-145) 08/31/19 17:30 Potassium 3.5 mmol/L (3.5-5.1) 08/31/19 17:30 Chloride 103 mmol/L (98-107) 08/31/19 17:30 Carbon Dioxide 24 mmol/L (22-29) 08/31/19 17:30 BUN 7 mg/dL (9.8-20.1) L 08/31/19 17:30 Creatinine 0.80 mg/dL (0.6-1.1) 08/31/19 17:30 Glucose 109 mg/dL (70-105) H 08/31/19 17:30 Calcium 9.2 mg/dL (7.8-10.44) 08/31/19 17:30 Total Bilirubin 0.3 mg/dL (0.2-1.2) 08/31/19 17:30 AST 26 U/L (5-34) 08/31/19 17:30 ALT 18 U/L (8-55) 08/31/19 17:30 Alkaline Phosphatase 112 U/L (40-110) H 08/31/19 17:30 Creatine Kinase 75 U/L (29-168) 08/31/19 17:30 Troponin I Less than 0.010 ng/mL (< 0.028) 08/31/19 20:28 Serum Total Protein 7.2 g/dL (6.0-8.3) 08/31/19 17:30 Albumin 4.1 g/dL (3.5-5.0) 08/31/19 17:30 Hospitalist H&P A/P - Problem (1) Anxiety Code(s): F41.9 - ANXIETY DISORDER, UNSPECIFIED Status: Chronic (2) COPD (chronic obstructive pulmonary disease) Status: Chronic (3) Chest pain Code(s): R07.9 - CHEST PAIN, UNSPECIFIED Status: Acute (4) Neuropathy Code(s): G62.9 - POLYNEUROPATHY, UNSPECIFIED Status: Chronic - Plan Plan: Admission to telemetry floor trend troponins Stress test in AM CBC, comp met, fasting lipids, mag, tsh Restart home meds GI and DVT prevention NPO after midnight Discussed case with Dr. mason, agrees with plan
[2019-08-31 22:37] VITALS: BMI 25.0
[2019-09-01 02:44] LABS: Troponin I Less than 0.010 ng/mL (< 0.028)
[2019-09-01] MEDS ORDERED: Regadenoson 0.4 MG/5 ML SYRINGE ONE (08:57)
[2019-09-01] MEDS ORDERED: FLU VACC QS2019-20(6MOS UP)/PF 60 MCG/0.5 ML SYRINGE IM ONE (09:00)
[2019-09-01] MEDS ORDERED: Famotidine 20 MG TAB PO SCH (09:00)
[2019-09-01] MEDS ORDERED: Enoxaparin Sodium 40 MG/0.4 ML SYRINGE SC SCH (09:00)
[2019-09-01] MEDS ORDERED: Polyethylene Glycol 3350 17 GM Packet PO PRN (12:21)
[2019-09-01] MEDS: Enoxaparin Sodium 40 MG/0.4 ML SYRINGE SC SCH (14:12)
--- NOTE | 2019-09-01 14:19 | NM ---
EXAM: NM Cardiac Stress W EF WF PROVIDED CLINICAL HISTORY: Chest pain COMPARISON: 05/30/2018 FINDINGS: There is diminished uptake seen within the anteroseptal left ventricular wall from the level of the m id left ventricle to the apex on the stress acquisition which does demonstrate reversibility on resting acquisition. There is an area of diminished uptake seen in the inferior left ventricular wall on both the resting and stress acquisitions. Gated images demonstrate global hypokinesis with greater degree of hypokinesis involving the septum and inferior left ventricular wall. There is also suggestion mild diminished thickening involving the inferior left ventricular wall. The calculated left ventricular ejection fraction is 44%. IMPRESSION: 1. Abnormal myocardial perfusion study with reversible defect in the anteroseptal left ventricular wa ll worrisome for ischemia. In addition, there is a relatively fixed defect in the inferior left ventricular wall demonstrating mild diminished wall thickening and hypokinesis suggesting mild scarri ng. These defects were not seen on prior study in 2018. 2. Decreased LVEF of 44%.
[2019-09-01] MEDS ORDERED: Nitroglycerin 0.4 MG TAB (25 Tab Bottle) PO PRN (15:30)
--- NOTE | 2019-09-01 15:32 | PDOC.HOSPP ---
- Subjective Encounter Date: 09/01/19 Encounter Time: 15:32 Subjective: Patient seen and examined for CP. No new CP episodes. No N/V/syncope/ palpitations. No new complaints. No overnight events - Objective Vital Signs & Weight: Vital Signs (12 hours) Temp Pulse Resp BP Pulse Ox 09/01/19 12:12 97.7 F 78 16 131/65 97 09/01/19 07:28 98.3 F 76 14 98/53 L 95 09/01/19 04:02 97.8 F 76 13 98/55 L 93 L Weight Weight 145 lb 14.4 oz I&O: 08/31/19 09/01/19 09/02/19 06:59 06:59 06:59 Intake Total 120 Output Total 550 Balance 120 -550 Result Diagrams: 08/31/19 17:30 08/31/19 17:30 EKG Reviewed by me: Yes (Tele SR) Hospitalist ROS - Review of Systems Respiratory: denies: cough, dry, shortness of breath, hemoptysis, SOB with excertion, pleuritic pain, sputum, wheezing, other Cardiovascular: denies: chest pain, palpitations, orthopnea, paroxysmal noc. dyspnea, edema, light headedness, other Gastrointestinal: denies: nausea, vomiting, abdominal pain, diarrhea, constipation, melena, hematochezia, other - Medication Medications: Active Medications Generic Name Dose Route Start Last Admin Trade Name Freq PRN Reason Stop Dose Admin Enoxaparin Sodium 40 mg 09/01/19 09:00 09/01/19 14:12 Lovenox SC 40 mg 0900 UZMA Administration Famotidine 20 mg 09/01/19 09:00 09/01/19 12:32 Pepcid PO 20 mg BID UZMA Administration Polyethylene Glycol 17 gm 09/01/19 12:21 09/01/19 12:31 Miralax PO 17 gm DAILY PRN Administration Constipation - Exam General Appearance: NAD Neck: supple, no JVD Heart: RRR, no gallops, no rubs, normal peripheral pulses Respiratory: no wheezes, no rales, no ronchi, normal chest expansion Gastrointestinal: non-tender, non-distended, normal bowel sounds, no guarding, no rigidity Extremities: no cyanosis, no edema Neurological: no new deficit Psychiatric: normal affect, A&O x 3 Hosp A/P - Plan DVT proph w/SCDs CP Abnormal Stress test HLD COPD Anxiety GERD PLAN: Consult Cardio due to abnormal stress test Add Echo - EF 44% on stress test Resume home meds including statins Avoid NSAIDs
[2019-09-01] MEDS ORDERED: Cyclobenzaprine 10 MG TAB PO PRN (15:35)
[2019-09-01] MEDS ORDERED: busPIRone HCl 5 MG TAB PO PRN (15:35)
[2019-09-01] MEDS ORDERED: HYDROcodone/Acetaminophen 5/325 mg Tablet PO PRN (15:43)
[2019-09-01] MEDS ORDERED: Acetaminophen 500 MG TAB PO SCH (18:00)
[2019-09-01] MEDS: HYDROcodone/Acetaminophen 5/325 mg Tablet PO PRN (20:16)
[2019-09-01] MEDS: Gabapentin 300 MG CAP PO SCH (20:16)
[2019-09-02 05:11] LABS: Cardiac Risk 3.5 (Less than 4.5)
[2019-09-02] MEDS ORDERED: Pantoprazole 40 MG GRANULES PACKET PO SCH (09:00)
[2019-09-02] MEDS ORDERED: Pravastatin Sodium 40 MG TAB PO SCH (09:00)
[2019-09-02] MEDS ORDERED: Aspirin 325 mg Enteric Coated Tablet PO SCH (09:00)
[2019-09-02] MEDS: FLUoxetine HCl 20 MG CAP PO SCH (09:25)
[2019-09-02] MEDS: Gabapentin 300 MG CAP PO SCH ×2 (09:25→20:10)
[2019-09-02] MEDS: Enoxaparin Sodium 40 MG/0.4 ML SYRINGE SC SCH (09:26)
[2019-09-02] MEDS: HYDROcodone/Acetaminophen 5/325 mg Tablet PO PRN (09:26)
[2019-09-02] MEDS ORDERED: Communication Order-Pharmacy FS SCH (10:00)
--- NOTE | 2019-09-02 10:37 | CON ---
DATE OF CONSULTATION: HISTORY OF PRESENT ILLNESS: Irasema ring is a 53-year-old white female, admitted for evaluation of chest discomfort. In May 2018, she also was admitted here for chest discomfort, and Cardiolite test was normal at that time. Yesterday, she was out working in her yard and she developed substernal chest pressure, radiated into her left arm, associated with nausea, vomiting, and diaphoresis. She would have discomfort lasting 5 to 10 minutes, resolve after several minutes and then recur again. She had this pattern on and off for approximately 2 hours, and then came to the emergency room. Cardiac enzymes were unremarkable. 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 There was no evidence of aortic dissection or pulmonary embolism. Cardiac enzymes have been unremarkable, and yesterday, she underwent adenosine Cardiolite testing. This revealed a reversible defect in the anteroseptal wall and fixed defect of the inferior wall. Ejection fraction was 44%. PAST MEDICAL HISTORY: Hyperlipidemia, on pravastatin for the last several years ; history of COPD. PAST SURGICAL HISTORY: Cholecystectomy, hysterectomy, total hip replacement, and left tib-fib repair. MEDICATIONS: 1. Buspirone 7.5 mg b.i.d. p.r.n. 2. Flexeril 10 mg t.i.d. p.r.n. 3. Estradiol 2 mg daily. 4. Fluoxetine 40 daily. 5. Gabapentin 300 mg b.i.d. 6. Motrin, DuoNebs p.r.n. 7. Protonix 40 mg daily. 8. Pravastatin 40 mg at bedtime. 9. Effexor 75 daily. ALLERGIES: MORPHINE. SOCIAL HISTORY: She smoked 1 pack per day, but stopped 2 years ago. She does not drink. FAMILY HISTORY: Negative for coronary artery disease. REVIEW OF SYSTEMS: A 12-point review of systems is otherwise unremarkable. PHYSICAL EXAMINATION: VITAL SIGNS: Blood pressure 111/60, pulse of 81. HEENT: PERRL. NECK: Supple. CHEST: Clear. CARDIAC: S1 and S2 normal without any S3, S4, or murmurs. Carotid upstrokes normal without bruits. ABDOMEN: Normal bowel sounds without tenderness or organomegaly. EXTREMITIES: Revealed no clubbing, cyanosis, or edema. NEUROLOGIC: Grossly intact. SKIN: Warm and dry. LABORATORY DATA: EKG revealed normal sinus rhythm with possible left atrial enlargement, septal infarction. Hemoglobin 12.6, hematocrit 37.2, white count 8400, and platelets 439,000. Sodium 139, potassium 3.5, chloride 103, carbon dioxide 24, BUN 7, and creatinine 0.80. Cholesterol 201, triglycerides 107, HDL 58, and LDL 122. IMPRESSION: 1. Probable acute coronary artery syndrome with chest pressure, nausea, vomiting , diaphoresis, and abnormal Cardiolite with finding of anteroseptal ischemia and fixed inferior wall defect. 2. Hypercholesterolemia, under poor control, on pravastatin. 3. Former smoker. RECOMMENDATIONS: Pravastatin will be discontinued, instead she will be placed on atorvastatin 40 mg at bedtime. We discussed the need for strict low-cholesterol diet. With her abnormal stress test with anteroseptal ischemia and fixed inferior wall defect, it was recommended she undergo cardiac catheterization. Risks of this were discussed including , myocardial infarction, dye reaction, vascular injury, CVA, transfusion, limb loss, renal loss, etc., also risks of intervention with PTCA and stent placement were discussed including , myocardial infarction, emergent CABG, restenosis, stent thrombosis, vessel perforation, etc. She denies any history of gastrointestinal bleeding or stroke and has no upcoming surgical procedures, overall, it is recommended that a drug-eluting stent be placed if needed. Job ID: [id number] MTDD
--- NOTE | 2019-09-02 11:47 | PDOC.HOSPP ---
- Subjective Encounter Date: 09/02/19 Encounter Time: 09:00 Subjective: Patient seen and examined for CP. Feels the same. No new CP/SOB. No new complaints. No overnight events - Objective Vital Signs & Weight: Vital Signs (12 hours) Temp Pulse Resp BP Pulse Ox 09/02/19 07:28 98.1 F 81 15 111/60 96 09/02/19 04:17 98.6 F 76 12 120/67 96 09/02/19 02:33 95 09/01/19 23:57 98.2 F 85 16 117/60 96 Weight Weight 145 lb 14.4 oz I&O: 09/01/19 09/02/19 09/03/19 06:59 06:59 06:59 Intake Total 120 450 Output Total 1750 Balance 120 -1300 Result Diagrams: 08/31/19 17:30 08/31/19 17:30 Additional Labs: Laboratory Tests 09/02/19 04:17 Triglycerides 107 Cholesterol 201 H LDL Cholesterol, Calc 122 HDL Cholesterol 58 EKG Reviewed by me: Yes (Tele SR) Hospitalist ROS - Review of Systems Respiratory: denies: cough, dry, shortness of breath, hemoptysis, SOB with excertion, pleuritic pain, sputum, wheezing, other Cardiovascular: denies: chest pain, palpitations, orthopnea, paroxysmal noc. dyspnea, edema, light headedness, other Gastrointestinal: denies: nausea, vomiting, abdominal pain, diarrhea, constipation, melena, hematochezia, other - Medication Medications: Active Medications Generic Name Dose Route Start Last Admin Trade Name Freq PRN Reason Stop Dose Admin Hydrocodone Bitart/Acetaminophen 1 tab 09/01/19 15:42 09/02/19 09:26 [place] 5/325 PO 1 tab Q4H PRN Administration Moderate Pain (4-6) Aspirin 325 mg 09/02/19 09:00 09/02/19 09:25 Ecotrin PO 325 mg DAILY UZMA Administration Enoxaparin Sodium 40 mg 09/01/19 09:00 09/02/19 09:26 Lovenox SC 09/02/19 23:59 40 mg 0900 UZMA Administration Fluoxetine HCl 40 mg 09/02/19 09:00 09/02/19 09:25 Prozac PO 40 mg DAILY UZMA Administration Gabapentin 300 mg 09/01/19 21:00 09/02/19 09:25 Neurontin PO 300 mg BID UZMA Administration Pantoprazole Sodium 40 mg 09/02/19 09:00 09/02/19 09:25 Protonix PO 40 mg DAILY UZMA Administration Polyethylene Glycol 17 gm 09/01/19 12:21 09/01/19 12:31 Miralax PO 17 gm DAILY PRN Administration Constipation Venlafaxine HCl 75 mg 09/02/19 09:00 09/02/19 09:25 Effexor PO 75 mg DAILY UZMA Administration - Exam General Appearance: NAD Neck: supple, no JVD Heart: RRR, no gallops Respiratory: CTAB, no rales Gastrointestinal: non-tender, non-distended, normal bowel sounds Extremities: no cyanosis, no clubbing Neurological: no new deficit Hosp A/P - Plan DVT proph w/SCDs CP/Unstable angina Abnormal Stress test HLD COPD Anxiety GERD Former smoker PLAN: Cont ASA Pravastatin changed to Lipitor Cardio input appreciated Await Echo Cont Gabapentin and other meds as above
[2019-09-02] MEDS ORDERED: Atorvastatin Calcium 40 MG TAB PO SCH (21:00)
[2019-09-03] MEDS: Gabapentin 300 MG CAP PO SCH (05:51)
[2019-09-03] MEDS: FLUoxetine HCl 20 MG CAP PO SCH (05:51)
[2019-09-03] MEDS ORDERED: Sodium Chloride 0.9% 1,000 ML IV SCH ×2 (06:00→07:41)
[2019-09-03] MEDS ORDERED: Heparin 10,000 UNITS/1 ML VIAL ONE (06:33)
[2019-09-03] MEDS ORDERED: Midazolam HCl 2 mg/2 ml Vial ONE (07:05)
[2019-09-03] MEDS ORDERED: Fentanyl 100 MCG/2 ML VIAL ONE (07:05)
[2019-09-03] MEDS ORDERED: Protamine Sulfate 50 MG/5 ML VIAL ONE (07:22)
[2019-09-03] MEDS ORDERED: Sodium Chloride 0.9% 200 ML IV PRN (07:40)
[2019-09-03] MEDS ORDERED: Nitroglycerin 0.4 MG TAB (25 Tab Bottle) SL PRN (07:40)
[2019-09-03] MEDS ORDERED: Acetaminophen/Codeine 30-300mg Tablet PO PRN ×2 (07:40)
[2019-09-03] MEDS ORDERED: Iopamidol 370 76% 100 ML VIAL ONE (08:44)
[2019-09-03] MEDS ORDERED: Iopamidol 370 76% 50 ML VIAL FS ONE (08:44)
[2019-09-03] MEDS ORDERED: Aspirin 81 mg Enteric Coated Tablet PO SCH (09:00)
[2019-09-03 11:26] VITALS: TEMP 97.9
[2019-09-03 15:25] VITALS: BP 122/72
--- NOTE | 2019-09-03 17:56 | DIS ---
DATE OF ADMISSION: 08/31/2019 DATE OF DISCHARGE: 09/03/2019 DISCHARGE DISPOSITION: Home. FOLLOWUP: 1. Follow up with primary care physician, nurse practitioner, Susu Conte in 1 week. 2. Follow up with Cardiology, Dr. Taylor in 3 to 4 weeks. ALLERGIES: THE PATIENT IS ALLERGIC TO MORPHINE. DISCHARGE MEDICATIONS: Pravastatin was changed to Lipitor 40 mg at bedtime. Aspirin low dose was added. All other home medications were left unchanged. The patient was seen and examined on the day of discharge. Denies any new complaints. No chest pain, shortness of breath, palpitations reported. BRIEF HOSPITAL COURSE: The patient is a 53-year-old female with hyperlipidemia, presented to the emergency room with chest discomfort. Please refer to the history and physical dated 31 August 2019 by nurse practitioner, Mallory Whitney for further details. The patient was admitted to the hospital with a diagnosis of chest discomfort, ruled out acute coronary syndrome. Serial troponin remained negative. She underwent a Cardiolite stress test that showed reversible ischemia in the anteroseptal region along with ejection fraction of 44%. An echocardiogram was obtained that showed ejection fraction of 50% to 55% with hypokinesis of the inferior wall with diastolic dysfunction, mild mitral regurgitation, mild tricuspid regurgitation. She underwent cardiac catheterization earlier today that showed mild coronary artery disease with good left ventricular function. The patient has been cleared by Cardiology for discharge. Pravastatin was changed to Lipitor per Cardiology recommendation. A fasting lipid profile showed triglyceride 107, cholesterol 201, LDL of 122, HDL of 58. The patient understands the above plan of care. FINAL DIAGNOSES: 1. Chest discomfort with suspected unstable angina. 2. Mild coronary artery disease on cardiac catheterization. 3. Abnormal stress test. 4. Hyperlipidemia. 5. Chronic obstructive pulmonary disease. 6. Anxiety. 7. Gastroesophageal reflux disease. 8. Former smoker. 9. Chronic kidney disease, stage 2. 10. Mild thrombocytosis. The patient understands the above plan of care. Job ID: [id number]
[2019-09-03] MEDS ORDERED: Atorvastatin Calcium 20 MG TAB PO SCH (21:00)
[2019-09-03] MEDS ORDERED: Atorvastatin Calcium 40 MG TAB PO SCH (21:00)
== END 2019-09-03 15:22 | disposition home or self-care (01) | DRG 287 ==
LOC: ERS 17:20 → OBSVTOIN 19:30 → 2SW 19:30 → ERS 21:50 → 2NO 09-02 15:53 → 2SW 09-02 16:52 → 2NO 09-02 17:11
PROVIDERS: ADMIT Internal Medicine; ATTEND Internal Medicine
PROC: 4A023N7 Measurement of Cardiac Sampling and Pressure, Left Heart, Percutaneous Approach (ICD-10-PCS; principal; 2019-09-03)
PROC: B2111ZZ Fluoroscopy of Multiple Coronary Arteries using Low Osmolar Contrast (ICD-10-PCS; 2019-09-03)
DX: I25.110 Atherosclerotic heart disease of native coronary artery with unstable angina pectoris (principal); J44.9 Chronic obstructive pulmonary disease, unspecified; M81.0 Age-related osteoporosis without current pathological fracture; E11.22 Type 2 diabetes mellitus with diabetic chronic kidney disease; E03.9 Hypothyroidism, unspecified; R94.39 Abnormal result of other cardiovascular function study; F41.9 Anxiety disorder, unspecified; E11.40 Type 2 diabetes mellitus with diabetic neuropathy, unspecified; K21.9 Gastro-esophageal reflux disease without esophagitis; I08.1 Rheumatic disorders of both mitral and tricuspid valves; E78.5 Hyperlipidemia, unspecified; N18.2 Chronic kidney disease, stage 2 (mild); D47.3 Essential (hemorrhagic) thrombocythemia; Z90.710 Acquired absence of both cervix and uterus; Z87.891 Personal history of nicotine dependence; Z90.49 Acquired absence of other specified parts of digestive tract; Z88.6 Allergy status to analgesic agent
CPT/HCPCS: 36415; 71045; 71275; 72191; 74175; 78452; 80053; 80061; 82550; 83735; 84484; 84703; 85025; 85347; 90471; 90686; 90732; 93005; 93017; 93306; 93458; 94760; 96374; 96375; 99152; A9500; C1769; G0008; G0009; J1200; J1644; J1650; J2250; J2270; J2405; J2720; J2785; J3010; Q9967

== ENCOUNTER 2020-01-30 08:47 | Outpatient (CLI) | payer OTHER ==
--- NOTE | 2020-01-31 09:29 | CT ---
CT CHEST WITHOUT CONTRAST: INDICATION: Nodule. COMPARISON: Comparison is made to chest CT of 01/31/2019. FINDINGS: Lungs show no evidence of infiltrate or effusion. There are numerous blebs along the pleural surface of both apical regions. These measure up to 2.5 cm. These appear stable from the prior study. Mild bronchiectasis in the region of the lingula and right middle lobe appears stable. Small 4 mm nodule in the left lower lobe laterally is stable. No other pulmonary nodule identified. Mediastinum is unremarkable. Osseous structures unremarkable. IMPRESSION: 1. There are chronic lung parenchymal changes which appear stable. 2. A 4 mm nodule in the left lower lung is stable. 3. No acute process or significant interval change. POS: AGW
== END 2020-01-30 08:48 | disposition home or self-care (01) ==
LOC: BICCT 08:47
PROVIDERS: ATTEND Internal Medicine Critical Care Medicine
DX: R91.1 Solitary pulmonary nodule (principal)
CPT/HCPCS: 71250

== ENCOUNTER 2020-03-24 06:17 | Outpatient (CLI) | payer OTHER ==
[2020-03-24 14:09] LABS: INR-International Normal Ratio 0.9; Prothrombin Time 12.4 sec (12.0-14.7)
[2020-03-24 14:35] LABS: #Basophils 0.1 thou/uL (0.0-0.2); #Eosinphils 0.1 thou/uL (0.0-0.7); #Lymphocytes 2.2 thou/uL (1.20-3.40); #Monocytes 0.3 thou/uL (0.11-0.59); #Neutrophils 3.8 thou/uL (1.40-6.50); %Basophils 0.8 % (0.0-1.0); %Eosinophils 1.9 % (0.0-10.0); %Lymphocytes 34.1 % (21.0-51.0); %Monocytes 5.3 % (0.0-10.0); %Neutrophils 57.9 % (42.0-75.0); Hemoglobin 11.8 g/dL (12.0-16.0); Mean Corpuscular HGB CONC 33.2 g/dL (32.0-36.0); Mean Corpuscular Hemoglobin 29.2 pg (27.0-31.0); Mean Platelet Volume 7.7 fL (7.4-10.4); Platelet Count 360 thou/uL (130-400); RBC Distribution Width 12.5 % (11.5-14.5); Red Blood Cell (RBC) Count 4.03 mill/uL (4.20-5.40); White Blood Cell (WBC) Count 6.5 thou/uL (4.8-10.8)
[2020-03-24 14:53] LABS: Anion Gap 11 mmol/L (10-20); BUN (Urea Nitrogen) 10 mg/dL (9.8-20.1); Calc. Creatinine Clearance 0 mL/min (70-130); Calcium 9.2 mg/dL (7.8-10.44); Carbon Dioxide 27 mmol/L (22-29); Chloride 102 mmol/L (98-107); Estimated GFR-MDRD 55; Glucose 111 mg/dL (70-105); Potassium 3.4 mmol/L (3.5-5.1); Sodium 137 mmol/L (136-145)
[2020-03-25 11:34] LABS: SARS-CoV-2 MS2 Positive; SARS-CoV-2 N Gene Negative; SARS-CoV-2 S Gene Negative; SARS-CoV-2 by NAA Not Detected (NotDetected); SARS-CoV-2 orf1ab Negative
--- NOTE | 2020-03-25 14:51 | EKG ---
Test Reason : Blood Pressure : / mmHG Vent. Rate : 072 BPM Atrial Rate : 072 BPM P-R Int : 168 ms QRS Dur : 088 ms QT Int : 288 ms P-R-T Axes : 059 033 030 degrees QTc Int : 315 ms Normal sinus rhythm Nonspecific ST and T wave abnormality Abnormal ECG No previous ECGs available Confirmed by MONA LY (2) on 03/25/2020 2:50:59 PM Referred By: BONNIE Confirmed By:MONA LY
== END 2020-03-24 06:18 | disposition home or self-care (01) ==
LOC: LABBT 06:17
PROVIDERS: ATTEND Orthopaedic Surgery
DX: Z01.818 Encounter for other preprocedural examination (principal); M19.011 Primary osteoarthritis, right shoulder; Z20.828 Contact with and (suspected) exposure to other viral communicable diseases
CPT/HCPCS: 80048; 85025; 85610; 87081; 87635; 93005; 93010; U0003

== ENCOUNTER 2020-03-24 10:15 | Inpatient (IN) | payer OTHER ==
[2020-03-26 10:05] VITALS: BMI 27.6
[2020-03-27] MEDS ORDERED: Vancomycin 1 GM/200 ML BAG ONE (06:46)
[2020-03-27] MEDS ORDERED: Sodium Chloride 0.9% 100 ML ONE (06:46)
[2020-03-27] MEDS ORDERED: Tranexamic Acid 1,000 MG/10 ML VIAL ONE (06:46)
[2020-03-27] MEDS ORDERED: Midazolam HCl 2 mg/2 ml Vial ONE (06:53)
[2020-03-27] MEDS ORDERED: Fentanyl 100 MCG/2 ML VIAL ONE ×3 (06:53→10:20)
[2020-03-27] MEDS ORDERED: Promethazine HCl 25 MG/ML VIAL IM PRN (08:00)
[2020-03-27] MEDS ORDERED: Fentanyl 100 MCG/2 ML VIAL IV PRN (08:00)
[2020-03-27] MEDS ORDERED: Ropivacaine 0.2% 550 ML 550 ML NERVE BLCK SCH (08:00)
[2020-03-27] MEDS ORDERED: Zolpidem Tartrate 5 MG TAB PO PRN (08:00)
[2020-03-27] MEDS ORDERED: Ondansetron PF 4 MG/2 ML Vial IVP PRN (08:00)
[2020-03-27] MEDS ORDERED: traMADol HCl 50 MG TAB PO PRN ×2 (08:00)
[2020-03-27] MEDS ORDERED: HYDROcodone/Acetaminophen 10/325 mg Tablet PO PRN (08:00)
[2020-03-27] MEDS ORDERED: SUGAMMADEX SODIUM 200 MG/2 ML VIAL ONE (08:41)
[2020-03-27] MEDS ORDERED: Ondansetron ODT 4 MG TAB PO PRN (09:43)
[2020-03-27] MEDS ORDERED: diphenhydrAMINE 50 MG CAP PO PRN (09:43)
[2020-03-27] MEDS ORDERED: Bisacodyl 10 MG SUPP PR PRN (09:43)
[2020-03-27] MEDS ORDERED: Methocarbamol 500 MG TAB PO PRN (09:43)
[2020-03-27] MEDS ORDERED: Methocarbamol 1 GM/10 ML VIAL SLOW IVP PRN (09:43)
[2020-03-27] MEDS ORDERED: Milk Of Magnesia 30 ML UDCUP PO PRN (09:43)
[2020-03-27] MEDS ORDERED: Acetaminophen 325 MG TAB PO PRN ×2 (09:43→12:40)
[2020-03-27] MEDS ORDERED: Ketorolac Tromethamine 30 MG/ML VIAL ONE (10:20)
[2020-03-27] MEDS ORDERED: PHENYLEPHRINE-NS 100 MCG/ML 10 ML SYRINGE ONE (10:55)
[2020-03-27] MEDS ORDERED: Ondansetron PF 4 MG/2 ML Vial ONE (10:55)
[2020-03-27] MEDS ORDERED: Lidocaine 1% PF 5 ML VIAL ONE (10:55)
[2020-03-27] MEDS ORDERED: PROPOFOL 200 MG/20 ML VIAL ONE (10:55)
[2020-03-27] MEDS ORDERED: Rocuronium Bromide 10 MG/ML (10ML VIAL) ONE (10:55)
[2020-03-27] MEDS ORDERED: Dexamethasone 20 MG/5 ML VIAL ONE (10:55)
[2020-03-27] MEDS ORDERED: EPHEDRINE 25 MG/5 ML SYRINGE ONE ×2 (10:55)
[2020-03-27] MEDS ORDERED: Glycopyrrolate 0.2 MG/ML 5 ML SYRINGE ONE (10:55)
[2020-03-27] MEDS ORDERED: Ropivacaine 0.5% HCl/PF (150 MG/30 ML VIAL) ONE (10:57)
[2020-03-27] MEDS ORDERED: Ropivacaine 0.2% HCl/PF (40 MG/20 ML VIAL) ONE (10:57)
[2020-03-27] MEDS ORDERED: Ketorolac Tromethamine 30 MG/ML VIAL IVP SCH (12:00)
[2020-03-27] MEDS ORDERED: Acetaminophen 500 MG TAB PO SCH ×2 (12:00→18:00)
[2020-03-27] MEDS ORDERED: Furosemide 20 MG TAB PO PRN (12:26)
[2020-03-27] MEDS: Sodium Chloride 0.9% 1,000 ML IV SCH ×2 (14:27→20:08)
[2020-03-27] MEDS: CEFAZOLIN 2 GM in Premix Bag 1 BAG IVPB SCH ×2 (14:28→22:47)
[2020-03-27] MEDS: HYDROcodone/Acetaminophen 10/325 mg Tablet PO PRN (14:45)
[2020-03-27] MEDS: Ketorolac Tromethamine 30 MG/ML VIAL IVP SCH ×2 (17:12→20:02)
[2020-03-27] MEDS ORDERED: Vancomycin 1 GM in Premix Bag 1 BAG IVPB SCH (18:00)
[2020-03-27] MEDS: Famotidine 20 MG TAB PO SCH (20:03)
[2020-03-27] MEDS: Calcium Carbonate 600 MG + Vit D TAB PO SCH (20:03)
[2020-03-27] MEDS: busPIRone HCl 10 MG TAB PO SCH (20:03)
[2020-03-27] MEDS: Sulfameth/Trimethoprim DS 800-160mg TAB PO SCH (20:03)
[2020-03-27] MEDS ORDERED: Atorvastatin Calcium 20 MG TAB PO SCH (21:00)
[2020-03-28] MEDS: HYDROcodone/Acetaminophen 10/325 mg Tablet PO PRN ×2 (01:39→06:40)
[2020-03-28] MEDS: Ketorolac Tromethamine 30 MG/ML VIAL IVP SCH ×2 (03:14→09:16)
[2020-03-28] MEDS ORDERED: Bupropion 150 MG XL TAB PO SCH (09:00)
[2020-03-28] MEDS ORDERED: FLUoxetine HCl 20 MG CAP PO SCH (09:00)
[2020-03-28] MEDS ORDERED: Ferrous Sulfate 325 MG TAB PO SCH (09:00)
[2020-03-28] MEDS ORDERED: Aspirin 81 mg Enteric Coated Tablet PO SCH (09:00)
[2020-03-28] MEDS ORDERED: Estradiol 1 MG TAB PO SCH (09:00)
[2020-03-28] MEDS: Sulfameth/Trimethoprim DS 800-160mg TAB PO SCH (09:09)
[2020-03-28] MEDS: busPIRone HCl 10 MG TAB PO SCH (09:09)
[2020-03-28] MEDS: Calcium Carbonate 600 MG + Vit D TAB PO SCH (09:10)
[2020-03-28] MEDS: Famotidine 20 MG TAB PO SCH (09:11)
[2020-03-28 11:16] VITALS: BP 119/76
[2020-03-28 11:33] VITALS: TEMP 98.2
--- NOTE | 2020-03-30 08:30 | OP ---
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 POSTOPERATIVE DIAGNOSIS: Right avascular necrosis of humeral head with 2 cm full-thickness rotator cuff tear with retraction. PROCEDURES PERFORMED: 1. Right reverse shoulder arthroplasty. 2. Biceps tenodesis. UNDERWRITING SUPPORT SPECIALIST: Stew Feldman. ANESTHESIA: Dr. Kennedy. The patient received a general intubation with interscalene block. ESTIMATED BLOOD LOSS: Less than 200 mL. TOURNIQUET TIME: None. ANTIBIOTICS: Ancef 2 g, vancomycin 1 g, TXA 1 g. The patient had a Perform reverse 25 mm standard base plate, 35 mm central screw, superior 18 mm screw, inferior 22 mm locking screws and 34 mm nonlocking screw. The patient had a standard glenosphere and 3A Flex with a low offset tray, 36 mm +6 poly. COMPLICATIONS: None. HISTORY OF PRESENT ILLNESS: Ms. Camarillo is a 54-year-old female, presented with severe right shoulder pain. The patient has limited range of motion and function. I discussed with the patient at length right total shoulder versus reverse shoulder arthroplasty. I discussed that reverse shoulder arthroplasty was a salvage procedure and may not last greater than 10 to 15 years. The patient has severe pain and desires pain relief. I discussed the risks and benefits of surgery to include pain, scar, bleeding, infection, damage to vital structures, decreased range of motion and strength, long-term failure of the procedure, and loss of life or limb. The patient understands these risks and benefits and she elected to proceed. DESCRIPTION OF PROCEDURE: Time-out was performed designating the patient's right upper extremity as the operative site based on site, consents, and marking. After time-out, the patient's right upper extremity was prepped and draped in sterile fashion. Procedure note: The patient was placed in beach chair position. All bony points were padded. We placed an incision on the deltopectoral interval, came down through skin, found the cephalic vein, took it laterally. We took down a portion of the pec, came down to the conjoint tendon, found the biceps, placed a right angle to help expose the biceps, came in through the biceps tendon and saw the rotator cuff. There was a 2 cm tear, almost entirety of the cuff. Given the size of the tear and its chronicity as well as AVN, I felt she would be best for reverse, which I discussed with her preop my plan of conversion from total to reverse. We peeled our subscap off, tenotomized our biceps, exposed the head, large osteophytes with a flattened cavity of the head. We rongeured off the osteophytes, exposed and cut the humeral head. We started with opening awl and broached up to a size 2, placed our man hole cover, placed retractors anterior and posterior, and did 360-degree release of the glenoid. On completion of this, being happy with our release and exposure of the entire glenoid, we used our 10-degree tilt guide, placed our pin. We felt we were little high replaced the pin for better inferior position. We then reamed, hand reamed and then reamed with a reamer, placed our center drill and then drilled the center hole. We had to chose a second center screw. We compressed the base plate into place. We drilled our anterior screw hole 34, nonlocking, superiorly and inferiorly placed locking screws. We then placed our 36, 6 standard base plate in position, moved back to the humerus. We first trialed once with the stem we had placed and it was tight, therefore we took two more mm off the humerus with the saw blade, cut, broached down and milled the humerus. We ultimately placed a size 3 stem and we trialed at 12 o'clock high position for most lateralization, reduced the shoulder into position and felt that we had overall good stability andno dislocation, she was difficult to dislocate, we then placed our final 3 stem with +[address]. We placed a drill hole near the subscap insertion and wrapped with 5-0 Ethibond around the stem for strength. We then reduced the shoulder into place. We sewed the subscap in some internal rotation, cut the stitches. We took the biceps, which we tenodesed to the pectoralis major. We had ligated the cephalic during the procedure because it was bleeding. We then washed, controlled all bleeding, ensured there was no bleeding. We closed the deltopectoral interval with 0, closed subcu with 2-0, and skin with amee. My assistant to the director helped throughout the entirety of the course with retraction of major structures, positioning, visualization, cleaning up of osteophytes and bone surface as well as closure. The patient will be admitted overnight to see how she does, 24 hours of antibiotics, will be discharged home if she does well. Job ID: [id number] MTDD
== END 2020-03-28 14:15 | disposition home or self-care (01) | DRG 483 ==
LOC: SURG A 03-27 06:11 → EEVIPCON 03-27 10:15 → SJJU 03-27 11:08
PROVIDERS: ADMIT Orthopaedic Surgery; ATTEND Orthopaedic Surgery
PROC: 0RRJ00Z Replacement of Right Shoulder Joint with Reverse Ball and Socket Synthetic Substitute, Open Approach (ICD-10-PCS; principal; 2020-03-27)
DX: M19.011 Primary osteoarthritis, right shoulder (principal); M87.811 Other osteonecrosis, right shoulder; M75.121 Complete rotator cuff tear or rupture of right shoulder, not specified as traumatic; E78.5 Hyperlipidemia, unspecified; F41.9 Anxiety disorder, unspecified; K20.90 Esophagitis, unspecified without bleeding; M41.9 Scoliosis, unspecified; M85.811 Other specified disorders of bone density and structure, right shoulder; Z79.899 Other long term (current) drug therapy
CPT/HCPCS: 80048; 85025; 85610; 87081; 87635; 93005; A4306; C1713; C1776; J0690; J1100; J1885; J2250; J2405; J2704; J2795; J3010; J3370; J3490; U0003

== ENCOUNTER 2021-04-16 07:42 | Outpatient (CLI) | payer BC | END 2021-04-16 07:43 | disposition home or self-care (01) | LOC: CT 07:42 | PROVIDERS: ATTEND Nurse Practitioner Family | DX: S30.1XXA Contusion of abdominal wall, initial encounter (principal) | CPT/HCPCS: 74170 ==

== ENCOUNTER 2021-12-11 09:06 | Emergency (ER) | payer BC | END 2021-12-11 10:34 | disposition left against medical advice (07) | LOC: ERS 09:06 | DX: Z53.21 Procedure and treatment not carried out due to patient leaving prior to being seen by health care provider (principal) ==

== ENCOUNTER 2023-02-10 09:08 | Outpatient (CLI) | payer BC | END 2023-02-10 09:09 | disposition home or self-care (01) | LOC: RAD 09:08 | PROVIDERS: ATTEND Internal Medicine Rheumatology | DX: M25.541 Pain in joints of right hand (principal); M25.542 Pain in joints of left hand; M15.4 Erosive (osteo)arthritis ==

== ENCOUNTER 2023-05-12 09:00 | Inpatient (IN) | payer MEDICARE, BC ==
[2023-05-12 09:39] VITALS: BMI 25.0
[2023-05-17] MEDS ORDERED: Tranexamic Acid 1,000 MG/10 ML VIAL ONE (07:03)
[2023-05-17] MEDS ORDERED: Sodium Chloride 0.9% 100 ML ONE ×2 (07:04→08:47)
[2023-05-17] MEDS ORDERED: Vancomycin 1 GM/200 ML (FROZEN) BAG ONE (07:04)
[2023-05-17] MEDS ORDERED: fentaNYL 50 mcg/mL 1 mL Vial ONE (08:18)
[2023-05-17] MEDS ORDERED: Bupivacaine PF 0.5% 30 ML VIAL ONE ×2 (08:18→08:47)
[2023-05-17] MEDS ORDERED: Midazolam HCl 2 mg/2 ml Vial ONE (08:18)
[2023-05-17] MEDS ORDERED: CEFAZOLIN 2 GM VIAL ONE (08:47)
[2023-05-17] MEDS ORDERED: fentaNYL 50 mcg/mL 1 mL Vial SLOW IVP PRN ×2 (09:14→11:23)
[2023-05-17] MEDS ORDERED: Acetaminophen 325 MG TAB PO PRN (09:14)
[2023-05-17] MEDS ORDERED: HYDROcodone/Acetaminophen 10/325 mg Tablet PO PRN ×3 (09:14→11:30)
[2023-05-17] MEDS ORDERED: diphenhydrAMINE 25 MG CAP PO PRN (09:14)
[2023-05-17] MEDS ORDERED: Zolpidem Tartrate 5 MG TAB PO PRN ×2 (09:14→11:30)
[2023-05-17] MEDS ORDERED: Ondansetron PF 4 MG/2 ML Vial IVP PRN ×2 (09:14→11:30)
[2023-05-17] MEDS ORDERED: Promethazine HCl 25 MG/ML VIAL IM PRN ×3 (09:14→12:30)
[2023-05-17] MEDS ORDERED: Lidocaine 1% PF 5 ML VIAL ONE (09:16)
[2023-05-17] MEDS ORDERED: Ipratropium/Albuterol 3 ML NEB NEB PRN (09:16)
[2023-05-17] MEDS ORDERED: fentaNYL PF 100 MCG/2 ML SYRINGE ONE (09:16)
[2023-05-17] MEDS ORDERED: PROPOFOL 20 ML ONE (09:17)
[2023-05-17] MEDS ORDERED: PHENYLEPHRINE-NS 100 MCG/ML 10 ML SYRINGE ONE (10:04)
[2023-05-17] MEDS ORDERED: ePHEDrine Sulfate 50 MG/10 ML VIAL ONE (10:05)
[2023-05-17] MEDS ORDERED: Dexamethasone 20 MG/5 ML VIAL ONE (10:13)
[2023-05-17] MEDS ORDERED: Ondansetron PF 4 MG/2 ML Vial ONE (10:13)
[2023-05-17] MEDS ORDERED: Glycopyrrolate 0.2 MG/ML 5 ML SYRINGE ONE (10:18)
[2023-05-17] MEDS ORDERED: traMADol HCl 50 MG TAB PO PRN ×4 (10:30→11:30)
[2023-05-17] MEDS ORDERED: Ropivacaine 0.2% 550 ML 550 ML NERVE BLCK SCH ×2 (10:30→11:30)
[2023-05-17] MEDS ORDERED: Ketorolac Tromethamine 30 MG/ML VIAL ONE (11:00)
[2023-05-17] MEDS ORDERED: Fentanyl 250 MCG/5 ML VIAL ONE (11:20)
[2023-05-17] MEDS ORDERED: Esmolol 100 MG/10 ML VIAL ONE (11:51)
[2023-05-17] MEDS ORDERED: Ketorolac Tromethamine 30 MG/ML VIAL IVP SCH ×2 (12:00→14:00)
[2023-05-17] MEDS ORDERED: Non-Formulary Medication 1 EACH PO PRN (12:16)
[2023-05-17] MEDS ORDERED: HYDROmorphone 2 MG/ML VIAL SLOW IVP PRN (12:30)
[2023-05-17] MEDS ORDERED: Ondansetron HCl/PF 4 MG/2 ML Vial IVP PRN (12:30)
[2023-05-17] MEDS: Ketorolac Tromethamine 30 MG/ML VIAL IVP SCH ×2 (12:56→17:15)
[2023-05-17] MEDS: HYDROcodone/Acetaminophen 10/325 mg Tablet PO PRN ×2 (17:16→20:27)
[2023-05-17] MEDS: CEFAZOLIN 2 GM in Sodium Chloride 0.9% 100 ML IVPB SCH (17:17)
[2023-05-17] MEDS: Sodium Chloride 0.9% 1,000 ML IV SCH (17:17)
[2023-05-17] MEDS ORDERED: CEFAZOLIN 2 GM in Sodium Chloride 0.9% 100 ML IVPB SCH (18:00)
[2023-05-17] MEDS: Ferrous Gluconate 324 MG TAB PO SCH (20:27)
[2023-05-17] MEDS: Aspirin 81 mg Enteric Coated Tablet PO SCH (20:27)
[2023-05-17] MEDS: Senokot S 8.6-50 MG TAB PO SCH (20:30)
[2023-05-18] MEDS: Ketorolac Tromethamine 30 MG/ML VIAL IVP SCH ×4 (01:04→18:51)
[2023-05-18] MEDS: Sodium Chloride 0.9% 1,000 ML IV SCH ×3 (01:04→16:03)
[2023-05-18] MEDS: CEFAZOLIN 2 GM in Sodium Chloride 0.9% 100 ML IVPB SCH (01:05)
[2023-05-18 06:00] LABS: Hematocrit 28.9 % (36.0-47.0); Hemoglobin 9.3 g/dL (12.0-16.0); Mean Corpuscular HGB CONC 32.2 g/dL (32.0-36.0); Mean Corpuscular Hemoglobin 28.8 pg (27.0-31.0); Mean Corpuscular Volume 89.5 fl (78.0-98.0); Mean Platelet Volume 9.6 fL (7.4-10.4); Platelet Count 224 10x3/uL (130-400); RBC Distribution Width 13.9 % (11.5-14.5); Red Blood Cell (RBC) Count 3.23 mill/uL (4.20-5.40); White Blood Cell (WBC) Count 8.9 10x3/uL (4.8-10.8)
[2023-05-18] MEDS ORDERED: Non-Formulary Item 1 EACH (Ferrous Sulfate [Iron] 325 MG Tablet) PO SCH (09:00)
[2023-05-18] MEDS ORDERED: [UNRECOGNIZED DRUG - OTHER] PO SCH (09:00)
[2023-05-18] MEDS ORDERED: [UNRECOGNIZED DRUG - OTHER] PO SCH (09:00)
[2023-05-18] MEDS ORDERED: Non-Formulary Item 1 EACH (Estradiol [Estradiol] 2 MG Tablet) PO SCH (09:00)
[2023-05-18] MEDS: Estradiol 1 MG TAB PO SCH (10:18)
[2023-05-18] MEDS: Atorvastatin Calcium 40 MG TAB PO SCH (10:18)
[2023-05-18] MEDS: Escitalopram Oxalate 10 mg Tablet PO SCH (10:19)
[2023-05-18] MEDS: HYDROcodone/Acetaminophen 10/325 mg Tablet PO PRN ×2 (10:19→15:27)
[2023-05-18] MEDS: Ezetimibe 10 MG TAB PO SCH (10:21)
[2023-05-18] MEDS: Ferrous Gluconate 324 MG TAB PO SCH ×2 (10:21→20:33)
[2023-05-18] MEDS: Multivitamin W/ Minerals 1 TAB PO SCH (10:21)
[2023-05-18] MEDS: Ferrous Sulfate 325 MG TAB PO SCH (10:21)
[2023-05-18] MEDS: Aspirin 81 mg Enteric Coated Tablet PO SCH ×2 (10:34→20:33)
[2023-05-18] MEDS: Prenatal Vitamin 1 TAB PO SCH (10:37)
[2023-05-18] MEDS: Oxybutynin ER 5 MG TAB PO SCH (10:37)
[2023-05-18] MEDS: Senokot S 8.6-50 MG TAB PO SCH ×2 (10:37→20:34)
[2023-05-19] MEDS: Ketorolac Tromethamine 30 MG/ML VIAL IVP SCH ×2 (01:26→05:32)
[2023-05-19] MEDS: Sodium Chloride 0.9% 1,000 ML IV SCH ×2 (01:27→12:06)
[2023-05-19 06:04] LABS: Hematocrit 26.7 % (36.0-47.0); Hemoglobin 8.7 g/dL (12.0-16.0); Mean Corpuscular HGB CONC 32.6 g/dL (32.0-36.0); Mean Corpuscular Hemoglobin 29.4 pg (27.0-31.0); Mean Corpuscular Volume 90.2 fl (78.0-98.0); Mean Platelet Volume 9.8 fL (7.4-10.4); Platelet Count 213 10x3/uL (130-400); RBC Distribution Width 14.4 % (11.5-14.5); Red Blood Cell (RBC) Count 2.96 mill/uL (4.20-5.40); White Blood Cell (WBC) Count 7.8 10x3/uL (4.8-10.8)
[2023-05-19] MEDS: Estradiol 1 MG TAB PO SCH (09:04)
[2023-05-19] MEDS: Multivitamin W/ Minerals 1 TAB PO SCH (09:04)
[2023-05-19] MEDS: Ferrous Sulfate 325 MG TAB PO SCH (09:06)
[2023-05-19] MEDS: Senokot S 8.6-50 MG TAB PO SCH (09:06)
[2023-05-19] MEDS: Ezetimibe 10 MG TAB PO SCH (09:06)
[2023-05-19] MEDS: Escitalopram Oxalate 10 mg Tablet PO SCH (09:06)
[2023-05-19] MEDS: Aspirin 81 mg Enteric Coated Tablet PO SCH (09:06)
[2023-05-19] MEDS: Atorvastatin Calcium 40 MG TAB PO SCH (09:06)
[2023-05-19] MEDS: Ferrous Gluconate 324 MG TAB PO SCH (09:07)
[2023-05-19] MEDS: Oxybutynin ER 5 MG TAB PO SCH (09:07)
[2023-05-19] MEDS: Prenatal Vitamin 1 TAB PO SCH (09:37)
[2023-05-19 13:08] VITALS: BP 113/71; TEMP 98.6
== END 2023-05-19 16:32 | disposition home or self-care (01) | DRG 470 ==
LOC: SURG A 05-17 06:19 → EDSTATUS 05-17 09:00 → SURG A 05-17 14:15
PROVIDERS: ADMIT Orthopaedic Surgery; ATTEND Orthopaedic Surgery
PROC: 0SRD0J9 Replacement of Left Knee Joint with Synthetic Substitute, Cemented, Open Approach (ICD-10-PCS; principal; 2023-05-17)
DX: M17.32 Unilateral post-traumatic osteoarthritis, left knee (principal); E78.5 Hyperlipidemia, unspecified; F41.9 Anxiety disorder, unspecified; M81.0 Age-related osteoporosis without current pathological fracture; F32.A Depression, unspecified; Z90.710 Acquired absence of both cervix and uterus; Z90.49 Acquired absence of other specified parts of digestive tract; Z98.890 Other specified postprocedural states; Z82.49 Family history of ischemic heart disease and other diseases of the circulatory system; Z83.3 Family history of diabetes mellitus; Z87.891 Personal history of nicotine dependence; Z79.899 Other long term (current) drug therapy; I95.9 Hypotension, unspecified
CPT/HCPCS: 36415; 85027; 93005; 93010; A4306; C1776; J1100; J1885; J2250; J2405; J2704; J2795; J3010; J3370-JW; J3490; J7050; S0020

== ENCOUNTER 2023-05-12 09:03 | Outpatient (CLI) | payer MEDICARE, BC ==
[2023-05-12 10:26] LABS: #Eosinphils 0.2 10x3/uL (0.0-0.5); #Monocytes 0.4 10x3/uL (0.0-1.1); #Neutrophils 2.2 10x3/uL (1.5-8.4); %Basophils 0.7 % (0.0-2.0); %Eosinophils 3.9 % (0.0-6.0); %Lymphocytes 49.6 % (18.0-47.0); %Monocytes 7.2 % (0.0-10.0); %Neutrophils 38.4 % (40.0-75.0); Hematocrit 37.2 % (34.9-44.5); Hemoglobin 12.1 g/dL (12.0-15.5); Mean Corpuscular HGB CONC 32.5 g/dL (32.0-36.0); Mean Corpuscular Hemoglobin 28.8 pg (27.0-33.0); Mean Corpuscular Volume 88.6 fl (81.6-98.3); Mean Platelet Volume 9.7 fl (7.4-10.4); Platelet Count 274 10x3/uL (150-450); RBC Distribution Width 13.8 % (11.5-14.5); White Blood Cell (WBC) Count 5.7 10x3/uL (3.5-10.5)
[2023-05-12 10:51] LABS: INR-International Normal Ratio 0.9
[2023-05-12 10:57] LABS: Anion Gap 13 mmol/L (10-20); BUN (Urea Nitrogen) 9 mg/dL (9.8-20.1); Calc. Creatinine Clearance 0 mL/min (70-130); Calcium 9.2 mg/dL (7.8-10.44); Carbon Dioxide 24 mmol/L (22-29); Chloride 106 mmol/L (98-107); Estimated GFR 79; Glucose 86 mg/dL (70-105); Potassium 4.2 mmol/L (3.5-5.1); Sodium 139 mmol/L (136-145)
== END 2023-05-12 09:04 | disposition home or self-care (01) ==
LOC: LABBT 09:03
PROVIDERS: ATTEND Orthopaedic Surgery
DX: Z01.818 Encounter for other preprocedural examination (principal); M17.11 Unilateral primary osteoarthritis, right knee; R00.1 Bradycardia, unspecified
CPT/HCPCS: 80048; 85025; 85610; 87081; 93005; 93010

== ENCOUNTER 2024-07-13 08:29 | Outpatient (CLI) | payer BC | END 2024-07-13 08:30 | disposition home or self-care (01) | LOC: BICMAMMO 08:29 | PROVIDERS: ATTEND Nurse Practitioner Family | DX: Z12.31 Encounter for screening mammogram for malignant neoplasm of breast (principal) | CPT/HCPCS: 77063; 77067 ==